=== PATIENT | female | born 1945 | race Caucasian/White ===

== ENCOUNTER → 2017-03-17 | Outpatient (CLI) | payer BC ==
[~2017-03-17] MED LIST: ACET-1311 PO; ASPI1CHW12 PO; BUME1TAB PO; CHOL100027 PO; DICLTAB4 PO; ESCI1TAB9 PO; NAPR-1169 PO; OXYC-57 PO; PNT500 PO; PRT/20 PO; SIMV20TA5 PO
--- NOTE | 2017-03-17 16:42 | DIAGNOSTIC IMAGING REPORT ---
RIGHT ANKLE MIN 3 VIEWS ROUTINE CLINICAL HISTORY: Right ankle pain and swelling. COMPARISON: None FINDINGS: Alignment of the right ankle is anatomic. Talar dome is intact. There is no fracture or suspicious lesion. A 5 mm well-corticated ossicle adjacent to the fibular tip is chronic. Joint spaces are preserved. Talar dome is intact. IMPRESSION: No significant osseous abnormality of the right ankle. Electronically signed by: Rene Phoenix M.D. 03/17/2017 4:41 PM Dictated Date/Time: 03/17/2017 4:40 PM
--- NOTE | 2017-03-17 16:43 | DIAGNOSTIC IMAGING REPORT ---
RIGHT FOOT MIN 3 VIEWS ROUTINE CLINICAL HISTORY: PAIN, EMED Right pain COMPARISON: None. DISCUSSION: Mild degenerative change first metatarsophalangeal joint. Mild hallux valgus configuration. No acute bony pathology. Study is negative for fracture or dislocation. IMPRESSION: Mild degenerative change first metatarsophalangeal joint. Mild localized soft tissue edema. No acute bony abnormality The above report was generated using voice recognition software. It may contain grammatical, syntax or spelling errors. Electronically signed by: Tomi Ortega M.D. 03/17/2017 4:42 PM Dictated Date/Time: 03/17/2017 4:40 PM
== END | disposition home or self-care (01) ==
LOC: C.RAD 16:21
PROVIDERS: ATTEND Physician Assistant Medical
DX: R52 Pain, unspecified (principal); R60.9 Edema, unspecified

== ENCOUNTER → 2017-03-18 | Outpatient (CLI) | payer BC ==
[2017-03-18 09:38] LABS: HEMATOCRIT 38.2 % (37-47); MEAN CELL VOLUME 84.3 fL (80-100); MEAN CORPUSCULAR HEMOGLOBIN 28.7 pg (25-34); MEAN PLATELET VOLUME 8.4 fL (7.4-10.4); PLATELET COUNT 172 K/uL (130-400); RED BLOOD COUNT 4.53 M/uL (4.2-5.4); WHITE BLOOD COUNT 3.75 K/uL (4.8-10.8)
[2017-03-18 10:01] LABS: BLOOD UREA NITROGEN 18 mg/dl (7-18); CALCIUM 9.3 mg/dl (8.5-10.1); CARBON DIOXIDE 29 mmol/L (21-32); CHLORIDE 108 mmol/L (98-107); CHOLESTEROL 180 mg/dl (0-200); CREATININE 0.84 mg/dl (0.60-1.20); GLUCOSE 90 mg/dl (70-99); POTASSIUM 4.6 mmol/L (3.5-5.1); SODIUM 141 mmol/L (136-145); TRIGLYCERIDES 152 mg/dl (0-150); VERY LOW DENSITY LIPOPROT CALC 30 mg/dl
[2017-03-18 10:04] LABS: CHOLESTEROL/HDL RATIO 4.1; HDL CHOLESTEROL 44 mg/dl; LDL CHOLESTEROL CALCULATED 106 mg/dl
== END | disposition home or self-care (01) ==
LOC: C.LAB 08:32
PROVIDERS: ATTEND Physician Assistant Medical
DX: E78.5 Hyperlipidemia, unspecified (principal); M19.90 Unspecified osteoarthritis, unspecified site; K57.90 Diverticulosis of intestine, part unspecified, without perforation or abscess without bleeding; Z79.899 Other long term (current) drug therapy; M47.812 Spondylosis without myelopathy or radiculopathy, cervical region; M47.816 Spondylosis without myelopathy or radiculopathy, lumbar region; M85.9 Disorder of bone density and structure, unspecified

== ENCOUNTER 2017-04-05 23:16 | Emergency (ER) | payer BC ==
[~2017-04-05] VITALS: Ht 161.3 cm; Wt 56.3 kg
[~2017-04-05 23:16] MED LIST changes: -ACET-1311 PO; -ASPI1CHW12 PO; -BUME1TAB PO; -DICLTAB4 PO; -OXYC-57 PO
[2017-04-05 23:21] VITALS: TEMP 36.5; Ht 161.3 cm; Wt 56.3 kg
[2017-04-05] MEDS ORDERED: ASPI1CHW12 PO (23:42)
[2017-04-05] MEDS ORDERED: DICLTAB4 PO (23:43)
[2017-04-05] MEDS ORDERED: ACET-1311 PO (23:44)
[2017-04-05] MEDS ORDERED: ACETAMINOPHEN 500 MG TAB PO STA (23:57)
[2017-04-06 00:36] LABS: BASO % 0.8 %; BASO ABS # 0.03 K/uL (0-0.2); COMPLETE YES; HEMATOCRIT 36.2 % (37-47); LYMPH % 33.5 %; LYMPH ABS # 1.25 K/uL (1.2-3.4); MEAN CELL VOLUME 85.4 fL (80-100); MEAN PLATELET VOLUME 8.4 fL (7.4-10.4); MONO % 8.6 %; NEUT % 49.1 %; PLATELET COUNT 164 K/uL (130-400); RED BLOOD COUNT 4.24 M/uL (4.2-5.4); WHITE BLOOD COUNT 3.73 K/uL (4.8-10.8)
[2017-04-06 00:44] LABS: BUN/CREATININE RATIO 17.9 (10-20); CALCIUM 8.9 mg/dl (8.5-10.1); CREATININE 0.85 mg/dl (0.60-1.20); POTASSIUM 3.9 mmol/L (3.5-5.1)
[2017-04-06 00:46] LABS: ALB/GLOB RATIO 1.1 (0.9-2)
--- NOTE | 2017-04-06 02:28 | EMERGENCY ROOM VISIT NOTE ---
History Report prepared by Deuce: Jensen Dillard Under the Supervision of: Dr. Dori Bo D.O. First contact with patient: 23:43 Chief Complaint: SWELLING TO EXTREMITY Stated Complaint: RT FOOT/LEG SWELLING W/PAIN History of Present Illness The patient is a 71 year old female who presents to the Emergency Room with complaints of worsening right lower leg swelling beginning last week. She was seen by her PCP last week and had blood work and an x-ray which all appeared normal. She was started on a Medrol dose pack which improved her symptoms. The patient denies any changes to her medication. She denies any changes to her foot wear or changes to activity. She denies any recent prolonged travel. The patient denies any urinary symptoms, abdominal pain, fevers, or chills. She states that she has had some back pain, but this has been chronic over the past year. The patient notes that she had a cardiac catheterization two years ago which was normal. Source of History: patient Onset: This week Position: leg (right) Quality: other (swelling) Timing: worsening Modifying Factors (Relieving): other (Medrol dose pack) Associated Symptoms: No fevers, No chills, No abdominal pain, No urinary symptoms Review of Systems See HPI for pertinent positives & negatives. A total of 10 systems reviewed and were otherwise negative. Past Medical & Surgical Medical Problems: (1) S/P hernia repair Family History Hypertension Social History Smoking Status: Former Smoker Alcohol Use: none Drug Use: none Marital Status: single Housing Status: lives alone Occupation Status: retired Current/Historical Medications Scheduled Acetaminophen (Tylenol), 650 MG PO Q2D Aspirin (Aspirin 81 Low Dose), 81 MG PO Q2D Cholecalciferol (Vitamin D 1000 Unit), 2,000 INTER.UNIT PO DAILY Diclofenac W/ Misoprostol (Arthrotec), 1 TAB PO Q2D Escitalopram Oxalate (Lexapro), 5 MG PO DAILY Pantoprazole (Protonix), 40 MG PO DAILY Simvastatin (Zocor), 40 MG PO QPM Scheduled PRN Naproxen (Naprosyn), 500 MG PO BID PRN for Pain Allergies Coded Allergies: No Known Allergies (Unverified , 04/05/17) Physical Exam Vital Signs Date Time Temp Pulse Resp B/P (MAP) Pulse Ox O2 Delivery O2 Flow Rate FiO2 04/06/17 02:43 76 16 140/68 95 8/6/17 01:21 81 18 132/62 98 Room Air 04/05/17 23:21 36.5 80 18 130/74 98 Room Air Physical Exam GENERAL: alert, well appearing, well nourished, no distress, non-toxic EYE EXAM: normal conjunctiva, PERRL and EOM's grossly intact OROPHARYNX: no exudate, no erythema, lips, buccal mucosa, and tongue normal and mucous membranes are moist NECK: supple, no nuchal rigidity, no adenopathy, non-tender LUNGS: Clear to auscultation. Normal chest wall mechanics HEART: no murmurs, S1 normal and S2 normal ABDOMEN: abdomen soft, non-tender, normo-active bowel sounds, no masses, no rebound or guarding. BACK: Back is symmetrical on inspection and there is no deformity, no midline tenderness, no CVA tenderness. SKIN: no rashes and no bruising UPPER EXTREMITIES: upper extremities are grossly normal. LOWER EXTREMITIES: Trace left lower extremity edema. 1+ lower extremity edema. No rash, petechiae. Mild calf tenderness. Normal cap refill, normal ROM. Well healed surgical scar on the left foot over the 1st MTP. NEURO EXAM: Normal sensorium, cranial nerves II-XII grossly intact, normal speech, no gross weakness of arms, no gross weakness of legs. Medical Decision & Procedures ER Provider Diagnostic Interpretation: US results per statrad and my review. US VENOUS BILATERAL LOWER EXTREMITIES: No sonographic evidence for DVT. Cystic-appearing lesion in the left popliteal fossa. Could represent Bakers cyst. Laboratory Results 04/06/17 00:15 Red Blood Count 4.24, Mean Corpuscular Volume 85.4, Mean Corpuscular Hemoglobin 29.0, Mean Corpuscular Hemoglobin Concent 34.0, Mean Platelet Volume 8.4, Neutrophils (%) (Auto) 49.1, Lymphocytes (%) (Auto) 33.5, Monocytes (%) (Auto) 8.6, Eosinophils (%) (Auto) 8.0, Basophils (%) (Auto) 0.8, Neutrophils # (Auto) 1.83, Lymphocytes # (Auto) 1.25, Monocytes # (Auto) 0.32, Eosinophils # (Auto) 0.30, Basophils # (Auto) 0.03 04/06/17 00:15 Test 04/06/17 00:15 White Blood Count 3.73 K/uL (4.8-10.8) Red Blood Count 4.24 M/uL (4.2-5.4) Hemoglobin 12.3 g/dL (12.0-16.0) Hematocrit 36.2 % (37-47) Mean Corpuscular Volume 85.4 fL (80-100) Mean Corpuscular Hemoglobin 29.0 pg (25-34) Mean Corpuscular Hemoglobin Concent 34.0 g/dl (32-36) Platelet Count 164 K/uL (130-400) Mean Platelet Volume 8.4 fL (7.4-10.4) Neutrophils (%) (Auto) 49.1 % Lymphocytes (%) (Auto) 33.5 % Monocytes (%) (Auto) 8.6 % Eosinophils (%) (Auto) 8.0 % Basophils (%) (Auto) 0.8 % Neutrophils # (Auto) 1.83 K/uL (1.4-6.5) Lymphocytes # (Auto) 1.25 K/uL (1.2-3.4) Monocytes # (Auto) 0.32 K/uL (0.11-0.59) Eosinophils # (Auto) 0.30 K/uL (0-0.5) Basophils # (Auto) 0.03 K/uL (0-0.2) RDW Standard Deviation 41.9 fL (36.4-46.3) RDW Coefficient of Variation 13.4 % (11.5-14.5) Immature Granulocyte % (Auto) 0.0 % Immature Granulocyte # (Auto) 0.00 K/uL (0.00-0.02) Anion Gap 6.0 mmol/L (3-11) Est Creatinine Clear Calc Drug Dose 50.6 ml/min Estimated GFR () 79.3 Estimated GFR (Non- 68.5 BUN/Creatinine Ratio 17.9 (10-20) Calcium Level 8.9 mg/dl (8.5-10.1) Total Bilirubin 0.4 mg/dl (0.2-1) Aspartate Amino Transf (AST/SGOT) 26 U/L (15-37) Alanine Aminotransferase (ALT/SGPT) 45 U/L (12-78) Alkaline Phosphatase 83 U/L (45-117) Total Protein 6.5 gm/dl (6.4-8.2) Albumin 3.4 gm/dl (3.4-5.0) Globulin 3.1 gm/dl (2.5-4.0) Albumin/Globulin Ratio 1.1 (0.9-2) Laboratory results per my review. Medications Administered Medications (Trade) Dose Ordered Sig/Lex Route Start Time Stop Time Status Last Admin Dose Admin Acetaminophen (Tylenol Tab) 1,000 mg NOW STAT PO 04/05/17 23:57 04/05/17 23:58 DC 04/06/17 00:13 1,000 MG ED Course 2348: The patient was evaluated in room C6. A complete history and physical exam was performed. 2357: Ordered Tylenol Tab 1000 mg PO. 0218: Upon reevaluation, the patient is feeling better. I discussed the findings and the treatment plan with the patient. She verbalizes agreement and understanding. The patient was discharged home. Medical Decision Differential diagnosis: Etiologies such as DVT, musculoskeletal, infection, joint effusion, trauma, lymphedema, idiopathic, CHF, as well as others were entertained. No evidence for DVT, no recent trauma or injury to warrant additional imaging, patient already had prior outpatient x-rays. Patient's labs are reassuring no acute change compared to those from 2 weeks ago. No evidence of nephrotic syndrome, patient with no symptoms to suggest congestive heart failure, no evidence of cellulitis. Discussed the patient follow up with family doctor in possible need for additional evaluation of a rheumatologic disorder versus more proximal etiology for lymphedema. Patient well-appearing here had stable vital signs throughout, was agreeable with plan. Discussed symptoms to watch and return for, patient verbalized understanding. Medication Reconcilliation Current Medication List: was personally reviewed by me Blood Pressure Screening Patient's blood pressure: Elevated blood pressure Blood pressure disposition: Elevated BP felt to be situational Impression Primary Impression: Swelling of right extremity Scribe Attestation The scribe's documentation has been prepared under my direction and personally reviewed by me in its entirety. I confirm that the note above accurately reflects all work, treatment, procedures, and medical decision making performed by me. Departure Information Dispostion Home / Self-Care Referrals Prudencio Mtz D.O. (PCP) Patient Instructions My [facility] Additional Instructions Please follow up with your family doctor regarding the swelling in her leg. The ultrasound was negative for blood clots tonight, if the swelling persists your family doctor may consider repeating the study. Labs otherwise reassuring here. If you have any worsening swelling, develop fevers, rashes or sores, trouble breathing, chest pain, or you have any other new or concerning symptoms , please return the emergency room immediately.
[2017-04-06 02:43] VITALS: BP 140/68; PULSE 76; O2SAT 95
--- NOTE | 2017-04-06 06:54 | DIAGNOSTIC IMAGING REPORT ---
BILATERAL LOWER EXTREMITY VENOUS DOPPLER HISTORY: Bilateral lower extremity edema COMPARISON STUDY: None. FINDINGS: There is normal compressibility, flow, and augmentation within the bilateral lower extremity deep venous systems. A 1.9 x 1.2 x 0.5 cm left popliteal cyst. IMPRESSION: No DVT within the right or left lower extremity. Electronically signed by: Wojciech Robison M.D. 04/06/2017 6:53 AM Dictated Date/Time: 04/06/2017 6:53 AM
== END 2017-04-06 02:44 | disposition home or self-care (01) ==
LOC: C.EDB 23:16 → C.EDC 04-06 02:44
DX: R60.0 Localized edema (principal); Z79.82 Long term (current) use of aspirin; Z82.49 Family history of ischemic heart disease and other diseases of the circulatory system; Z87.891 Personal history of nicotine dependence

== ENCOUNTER → 2017-04-12 | Outpatient (CLI) | payer BC ==
[~2017-04-12] MED LIST changes: +ACET-1311 PO; +ASPI1CHW12 PO; +BUME1TAB PO; +DICLTAB4 PO; +OXYC-57 PO; -PNT500 PO
[2017-04-12 11:06] LABS: BASO % 1.1 %; BASO ABS # 0.04 K/uL (0-0.2); COMPLETE YES; EOS % 8.5 %; IG% 0.3 %; LYMPH % 36.9 %; LYMPH ABS # 1.31 K/uL (1.2-3.4); MEAN CELL VOLUME 85.7 fL (80-100); MEAN CORPUSCULAR HGB CONC 33.8 g/dl (32-36); MEAN PLATELET VOLUME 8.5 fL (7.4-10.4); MONO % 6.5 %; NEUT % 46.7 %; PLATELET COUNT 188 K/uL (130-400); RED BLOOD COUNT 4.55 M/uL (4.2-5.4); WHITE BLOOD COUNT 3.55 K/uL (4.8-10.8)
[2017-04-12 11:40] LABS: BLOOD UREA NITROGEN 18 mg/dl (7-18); C-REACTIVE PROTEIN < 0.29 mg/dl (0-0.29); CALCIUM 9.3 mg/dl (8.5-10.1); CARBON DIOXIDE 30 mmol/L (21-32); CHLORIDE 105 mmol/L (98-107); GLUCOSE 85 mg/dl (70-99); POTASSIUM 4.5 mmol/L (3.5-5.1); SODIUM 139 mmol/L (136-145)
== END | disposition home or self-care (01) ==
LOC: C.LAB 09:31
PROVIDERS: ATTEND Internal Medicine
DX: R60.0 Localized edema (principal); M79.89 Other specified soft tissue disorders

== ENCOUNTER 2017-04-14 08:09 | Emergency (ER) | payer BC ==
[~2017-04-14] VITALS: Ht 160 cm; Wt 54.1 kg
[~2017-04-14 08:09] MED LIST changes: -BUME1TAB PO; -OXYC-57 PO
[2017-04-14 08:19] VITALS: TEMP 36.5; Ht 160 cm; Wt 54.1 kg
--- NOTE | 2017-04-14 08:38 | EMERGENCY ROOM VISIT NOTE ---
History Report prepared by Deuce: Ander Scales Under the Supervision of: Dr. Mahnaz Fulton M.D. First contact with patient: 08:29 Chief Complaint: BACK PAIN Stated Complaint: BACK/LEG PAIN, SWELLING TO RT LEG, DIFF. VOIDING History of Present Illness The patient is a 71 year old female who presents to the Emergency Room with complaints of difficulty voiding that the patient first noticed this morning, shortly prior to arrival. She did empty her bladder after several attempts to void. The patient states that she was in the emergency department on Friday, two days ago for concerns of swelling in the right lower extremity and right foot. She had an US performed on the leg, which revealed no DVT. She followed up with her PCP who ordered blood work, and also suggested imaging of the abdomen and pelvis. The patient also notes some pain in her lumbar back with intermittent "spasms." She has had chronic back pain for the past year. She was recently started on Bumex by her PCP as well, and she notes losing four pounds since starting this medication. Source of History: patient Onset: Shortly [employer] Position: other (Genitourinary) Quality: other (Urinary Retention) Associated Symptoms: + back pain Note: Swelling of RLE Review of Systems See HPI for pertinent positives & negatives. A total of 10 systems reviewed and were otherwise negative. Past Medical & Surgical Medical Problems: (1) S/P hernia repair Family History Hypertension Social History Smoking Status: Never Smoker Alcohol Use: none Drug Use: none Marital Status: single Housing Status: lives alone Occupation Status: retired Current/Historical Medications Scheduled Acetaminophen (Tylenol), 650 MG PO Q2D Aspirin (Aspirin 81 Low Dose), 81 MG PO Q2D Bumetanide (Bumex), 1 TAB PO QAM Cholecalciferol (Vitamin D 1000 Unit), 2,000 INTER.UNIT PO DAILY Escitalopram Oxalate (Lexapro), 5 MG PO DAILY Pantoprazole (Protonix), 40 MG PO DAILY Simvastatin (Zocor), 40 MG PO QPM Scheduled PRN Naproxen (Naprosyn), 500 MG PO BID PRN for Pain Allergies Coded Allergies: No Known Allergies (Unverified , 04/05/17) Physical Exam Vital Signs Date Time Temp Pulse Resp B/P (MAP) Pulse Ox O2 Delivery O2 Flow Rate FiO2 04/14/17 12:09 72 16 132/62 98 04/14/17 11:08 77 148/78 04/14/17 09:49 65 15 04/14/17 09:44 69 22 04/14/17 09:39 76 20 04/14/17 09:34 72 20 04/14/17 09:29 64 19 04/14/17 09:24 66 17 04/14/17 09:19 66 17 04/14/17 09:14 66 21 04/14/17 09:11 69 04/14/17 08:19 36.5 72 18 123/54 97 Room Air Physical Exam Vital signs reviewed. General: Well-appearing 71 yo female, in no significant distress. HEENT: No scleral icterus, PERRLA, neck supple. Atraumatic. Cardiovascular: Regular rate and rhythm, no extra sounds. Pulmonary: Clear to auscultation bilaterally, normal work of breathing. Abdomen: Soft, nontender, nondistended, positive bowel sounds. Musculoskeletal: There is right inguinal lymphadenopathy. Atraumatic, no peripheral edema. There is bilateral lumbar paraspinous tenderness to palpation. Neurologic: Patient awake alert and oriented x 3, full strength in all 4 extremities. Cranial nerves 2 through 12 grossly intact. Skin: Warm, dry, no rash Medical Decision & Procedures ER Provider Diagnostic Interpretation: Radiology results as stated below per my review and radiologist interpretation: CT SCAN OF LUMBAR SPINE WITHOUT IV CONTRAST CLINICAL HISTORY: Low back pain. Right leg swelling. Urinary retention. COMPARISON STUDY: Abdominal CT dated 08/07/2013. TECHNIQUE: CT scan of the lumbar spine is performed from the lower thoracic spine to the sacrum. Images are reviewed in the axial, sagittal, and coronal planes. IV contrast was not administered specifically for this examination. There is IV contrast present from the concurrently performed CT scan of the abdomen and pelvis. FINDINGS: The skeletal structures are osteopenic. There is no evidence of fracture or malalignment involving the lumbar spine. Vertebral body height and alignment are maintained. There is minimal straightening of the lumbar lordosis. Small anterior osteophytes are seen throughout. The transverse and spinous processes are intact. There is no evidence of spondylolysis. No lytic or blastic lesions are seen. Mild facet arthropathy is noted L5-S1. Mild disc space narrowing with vacuum phenomenon is seen at L5-S1. The remaining disc spaces appear preserved. Small posterior disc bulges are suggested at L4-L5 and L5-S1. There is no evidence of large disc herniation. The paraspinous soft tissues are within normal limits. The visualized sacrum and bony pelvis appear intact. Retroperitoneal lymphadenopathy is identified. Splenomegaly is observed. IMPRESSION: 1. No acute bony abnormality is seen involving the lumbosacral spine. 2. Osteopenia and mild degenerative change as above. 3. There is splenomegaly and retroperitoneal lymphadenopathy. The appearance suggests a lymphoproliferative disorder/lymphoma. See report of abdominal CT performed concurrently for detailed intra-abdominal findings. Dictated: 04/14/2017 10:16 AM Transcribed: 04/14/2017 10:59 AM [email or web address] Electronically signed by: Winston Correa M.D. 04/14/2017 11:13 AM Dictated Date/Time: 04/14/2017 10:16 AM ABD/PELVIS IV CONTRAST ONLY CT DOSE: 239.88 mGy.cm HISTORY: Pain. Edema. low back pain, RLE edema TECHNIQUE: Multiaxial CT images of the abdomen and pelvis were performed following the use of intravenous contrast. A dose lowering technique was utilized adhering to the principles of ALARA. COMPARISON STUDY: 08/07/2013 FINDINGS: Lungs show no focal infiltrate in the basilar regions. Minimal parenchymal nodularity unchanged from the prior study. Liver is uniform throughout. Mild splenomegaly with a greatest linear dimension of 10 cm. This is slightly progressive compared to the prior study. Liver is uniform throughout. Kidneys enhance uniformly. No evidence for hydronephrosis. Interval development of significant periaortic adenopathy. Adenopathy of the periportal region is also identified agent 1.8 cm. Retroperitoneal nodes measure up to 2.3 cm. Multiple additional smaller nodules are identified from the right renal hilar level extending inferiorly to the bifurcations and iliac thiago regions bilaterally. Mesenteric nodes measure up to 2.5 cm. Proximal iliac chains demonstrate nodes measuring up to 2.6 cm. Less prominent thiago changes seen in the left. Superior mid and lower right pelvic sidewall nodes are identified measuring to 3.2 cm. There is mild infiltrative change of the root of the mesentery best seen transaxial image 221. Slight increase in density of the omental fat is present suggesting potential very early carcinomatosis. Bladder is midline. Bowel pattern is nonobstructive. The appendix is normal. IMPRESSION: 1. Interval development of bulky adenopathy involving the right and to a lesser extent left soft tissue pelvic regions, abdominal, retroperitoneum, and mesenteric regions. 2. Neoplastic process such as lymphoma must be excluded. 3. Mild splenomegaly. The above report was generated using voice recognition software. It may contain grammatical, syntax or spelling errors. Electronically signed by: Tomi Ortega M.D. 04/14/2017 10:23 AM Dictated Date/Time: 04/14/2017 10:13 AM Laboratory Results 04/14/17 08:42 Red Blood Count 4.47, Mean Corpuscular Volume 84.1, Mean Corpuscular Hemoglobin 28.4, Mean Corpuscular Hemoglobin Concent 33.8, Mean Platelet Volume 8.2, Neutrophils (%) (Auto) 50.4, Lymphocytes (%) (Auto) 22.6, Monocytes (%) (Auto) 20.3, Eosinophils (%) (Auto) 5.8, Basophils (%) (Auto) 0.9, Neutrophils # (Auto ) 1.74, Lymphocytes # (Auto) 0.78, Monocytes # (Auto) 0.70, Eosinophils # (Auto ) 0.20, Basophils # (Auto) 0.03 04/14/17 08:42 Test 04/14/17 08:42 04/14/17 09:07 White Blood Count 3.45 K/uL (4.8-10.8) Red Blood Count 4.47 M/uL (4.2-5.4) Hemoglobin 12.7 g/dL (12.0-16.0) Hematocrit 37.6 % (37-47) Mean Corpuscular Volume 84.1 fL (80-100) Mean Corpuscular Hemoglobin 28.4 pg (25-34) Mean Corpuscular Hemoglobin Concent 33.8 g/dl (32-36) Platelet Count 167 K/uL (130-400) Mean Platelet Volume 8.2 fL (7.4-10.4) Neutrophils (%) (Auto) 50.4 % Lymphocytes (%) (Auto) 22.6 % Monocytes (%) (Auto) 20.3 % Eosinophils (%) (Auto) 5.8 % Basophils (%) (Auto) 0.9 % Neutrophils # (Auto) 1.74 K/uL (1.4-6.5) Lymphocytes # (Auto) 0.78 K/uL (1.2-3.4) Monocytes # (Auto) 0.70 K/uL (0.11-0.59) Eosinophils # (Auto) 0.20 K/uL (0-0.5) Basophils # (Auto) 0.03 K/uL (0-0.2) RDW Standard Deviation 39.7 fL (36.4-46.3) RDW Coefficient of Variation 13.2 % (11.5-14.5) Immature Granulocyte % (Auto) 0.0 % Immature Granulocyte # (Auto) 0.00 K/uL (0.00-0.02) Anion Gap 5.0 mmol/L (3-11) Est Creatinine Clear Calc Drug Dose 42.1 ml/min Estimated GFR () 65.2 Estimated GFR (Non- 56.2 BUN/Creatinine Ratio 22.1 (10-20) Calcium Level 9.0 mg/dl (8.5-10.1) Total Bilirubin 0.6 mg/dl (0.2-1) Direct Bilirubin 0.1 mg/dl (0-0.2) Aspartate Amino Transf (AST/SGOT) 58 U/L (15-37) Alanine Aminotransferase (ALT/SGPT) 110 U/L (12-78) Alkaline Phosphatase 87 U/L (45-117) Total Protein 6.9 gm/dl (6.4-8.2) Albumin 3.9 gm/dl (3.4-5.0) Lipase 145 U/L (73-393) Urine Color YELLOW Urine Appearance CLEAR (CLEAR) Urine pH 6.0 (4.5-7.5) Urine Specific [place] 1.012 (1.000-1.030) Urine Protein NEG (NEG) Urine Glucose (UA) NEG (NEG) Urine Ketones NEG (NEG) Urine Occult Blood 1+ (NEG) Urine Nitrite NEG (NEG) Urine Bilirubin NEG (NEG) Urine Urobilinogen NEG (NEG) Urine Leukocyte Esterase NEG (NEG) Urine WBC (Auto) 0 /hpf (0-5) Urine RBC (Auto) 0-4 /hpf (0-4) Urine Hyaline Casts (Auto) 1-5 /lpf (0-5) Urine Epithelial Cells (Auto) 0-5 /lpf (0-5) Urine Bacteria (Auto) NEG (NEG) Laboratory results per my review. ED Course 0829: Past medical records reviewed. The patient was evaluated in room A4. A complete history and physical examination was performed. 1054: I checked on the patient at this time. She was doing well. I discussed the results of her radiology at depth. She is aware of the results and will follow up with her primary care physician. 1139: Upon reevaluation, the patient appeared to have improvement of her symptoms. I discussed findings with her. She verbalized agreement of the treatment plan. the patient was discharged home. Medical Decision Differential diagnosis: Etiologies such as musculoskeletal, disc herniation, fracture, aortic disease, metastatic disease, cord compression, discitis, infection, renal colic, gastrointestinal, acute exacerbation of chronic back pain, sciatica, cauda equina, as well as others were entertained. This patient was evaluated and appeared to be in no significant distress. IV access was obtained and laboratory work was drawn. CT scan of the abdomen and pelvis was performed and reveals significant lymphadenopathy. Radiology is concerned with a lymphoproliferative disorder such as lymphoma. The patient's laboratory work is fairly unrevealing. She was notified of the findings. She stated that several CT scans of her chest 7 performed with similar findings. The patient was strongly encouraged to follow up with oncology, case management has been consulted to help arrange follow-up as the patient wishes to be seen by the cancer center at [facility]. The patient seems comfortable with the plan for discharge and has requested results be faxed to her physician. She will return to the ER for worsening of symptoms or any medical concerns. Medication Reconcilliation Current Medication List: was personally reviewed by me Blood Pressure Screening Patient's blood pressure: Elevated blood pressure Blood pressure disposition: Elevated BP felt to be situational Impression Primary Impression: Lymphadenopathy Scribe Attestation The scribe's documentation has been prepared under my direction and personally reviewed by me in its entirety. I confirm that the note above accurately reflects all work, treatment, procedures, and medical decision making performed by me. Departure Information Dispostion Home / Self-Care Referrals Prudencio Mtz D.O. (PCP) Forms HOME CARE DOCUMENTATION FORM, IMPORTANT VISIT INFORMATION Patient Instructions My [facility] Additional Instructions Diagnosis: Lymphadenopathy Please follow up with your PCP for reevaluation. Contact/follow up with the Cancer Center for reevaluation. Return to the ED for worsening of symptoms or any medical concerns.
[2017-04-14] MEDS ORDERED: OPTIRAY 320 IV PRN (08:45)
[2017-04-14 08:58] LABS: BASO % 0.9 %; BASO ABS # 0.03 K/uL (0-0.2); COMPLETE YES; EOS % 5.8 %; HEMATOCRIT 37.6 % (37-47); LYMPH % 22.6 %; LYMPH ABS # 0.78 K/uL (1.2-3.4); MEAN CELL VOLUME 84.1 fL (80-100); MEAN CORPUSCULAR HEMOGLOBIN 28.4 pg (25-34); MEAN CORPUSCULAR HGB CONC 33.8 g/dl (32-36); MEAN PLATELET VOLUME 8.2 fL (7.4-10.4); MONO % 20.3 %; NEUT % 50.4 %; PLATELET COUNT 167 K/uL (130-400); RED BLOOD COUNT 4.47 M/uL (4.2-5.4); WHITE BLOOD COUNT 3.45 K/uL (4.8-10.8)
[2017-04-14 09:25] LABS: URINE APPEARANCE CLEAR (CLEAR); URINE BILIRUBIN NEG (NEG); URINE COLOR YELLOW; URINE EPITHELIAL CELL AUTO 0-5 /lpf (0-5); URINE NITRITE NEG (NEG); URINE SPECIFIC GRAVITY 1.012 (1.000-1.030); UROBILINOGEN NEG (NEG); ZZUR CULT IF INDIC CLEAN CATCH NO
[2017-04-14 09:25] LABS: BUN/CREATININE RATIO 22.1 (10-20); POTASSIUM 3.5 mmol/L (3.5-5.1)
[2017-04-14 09:27] LABS: MANUAL MICROSCOPIC REQUIRED? NO; REVIEW REQ? NO
[2017-04-14] MEDS ORDERED: BUME1TAB PO (09:29)
--- NOTE | 2017-04-14 10:24 | DIAGNOSTIC IMAGING REPORT ---
ABD/PELVIS IV CONTRAST ONLY CT DOSE: 239.88 mGy.cm HISTORY: Pain. Edema. low back pain, RLE edema TECHNIQUE: Multiaxial CT images of the abdomen and pelvis were performed following the use of intravenous contrast. A dose lowering technique was utilized adhering to the principles of ALARA. COMPARISON STUDY: 08/07/2013 FINDINGS: Lungs show no focal infiltrate in the basilar regions. Minimal parenchymal nodularity unchanged from the prior study. Liver is uniform throughout. Mild splenomegaly with a greatest linear dimension of 10 cm. This is slightly progressive compared to the prior study. Liver is uniform throughout. Kidneys enhance uniformly. No evidence for hydronephrosis. Interval development of significant periaortic adenopathy. Adenopathy of the periportal region is also identified agent 1.8 cm. Retroperitoneal nodes measure up to 2.3 cm. Multiple additional smaller nodules are identified from the right renal hilar level extending inferiorly to the bifurcations and iliac thiago regions bilaterally. Mesenteric nodes measure up to 2.5 cm. Proximal iliac chains demonstrate nodes measuring up to 2.6 cm. Less prominent thiago changes seen in the left. Superior mid and lower right pelvic sidewall nodes are identified measuring to 3.2 cm. There is mild infiltrative change of the root of the mesentery best seen transaxial image 221. Slight increase in density of the omental fat is present suggesting potential very early carcinomatosis. Bladder is midline. Bowel pattern is nonobstructive. The appendix is normal. IMPRESSION: 1. Interval development of bulky adenopathy involving the right and to a lesser extent left soft tissue pelvic regions, abdominal, retroperitoneum, and mesenteric regions. 2. Neoplastic process such as lymphoma must be excluded. 3. Mild splenomegaly. The above report was generated using voice recognition software. It may contain grammatical, syntax or spelling errors. Electronically signed by: Tomi Ortega M.D. 04/14/2017 10:23 AM Dictated Date/Time: 04/14/2017 10:13 AM
--- NOTE | 2017-04-14 10:59 | DIAGNOSTIC IMAGING REPORT ---
CT SCAN OF LUMBAR SPINE WITHOUT IV CONTRAST CLINICAL HISTORY: Low back pain. Right leg swelling. Urinary retention. COMPARISON STUDY: Abdominal CT dated 08/07/2013. TECHNIQUE: CT scan of the lumbar spine is performed from the lower thoracic spine to the sacrum. Images are reviewed in the axial, sagittal, and coronal planes. IV contrast was not administered specifically for this examination. There is IV contrast present from the concurrently performed CT scan of the abdomen and pelvis. FINDINGS: The skeletal structures are osteopenic. There is no evidence of fracture or malalignment involving the lumbar spine. Vertebral body height and alignment are maintained. There is minimal straightening of the lumbar lordosis. Small anterior osteophytes are seen throughout. The transverse and spinous processes are intact. There is no evidence of spondylolysis. No lytic or blastic lesions are seen. Mild facet arthropathy is noted L5-S1. Mild disc space narrowing with vacuum phenomenon is seen at L5-S1. The remaining disc spaces appear preserved. Small posterior disc bulges are suggested at L4-L5 and L5-S1. There is no evidence of large disc herniation. The paraspinous soft tissues are within normal limits. The visualized sacrum and bony pelvis appear intact. Retroperitoneal lymphadenopathy is identified. Splenomegaly is observed. IMPRESSION: 1. No acute bony abnormality is seen involving the lumbosacral spine. 2. Osteopenia and mild degenerative change as above. 3. There is splenomegaly and retroperitoneal lymphadenopathy. The appearance suggests a lymphoproliferative disorder/lymphoma. See report of abdominal CT performed concurrently for detailed intra-abdominal findings. Dictated: 04/14/2017 10:16 AM Transcribed: 04/14/2017 10:59 AM Ryan Electronically signed by: Winston Correa M.D. 04/14/2017 11:13 AM Dictated Date/Time: 04/14/2017 10:16 AM
[2017-04-14 12:09] VITALS: BP 132/62; PULSE 72; O2SAT 98
== END 2017-04-14 12:10 | disposition home or self-care (01) ==
LOC: C.EDB 08:10 → C.EDA 12:10
DX: R59.0 Localized enlarged lymph nodes (principal); M54.9 Dorsalgia, unspecified; M79.89 Other specified soft tissue disorders; Z79.82 Long term (current) use of aspirin; Z79.899 Other long term (current) drug therapy; Z82.49 Family history of ischemic heart disease and other diseases of the circulatory system

== ENCOUNTER → 2017-04-14 | Outpatient (CLI) | payer BC ==
--- NOTE | 2017-04-14 16:45 | ECHOCARDIOGRAM REPORT ---
*NOTICE TO RECEIVING LIBERTARIAN AGENCY This information is strictly Confidential and protected under [place] law. [place] law prohibits you from making any further disclosure of this information unless further disclosure is expressly permitted by the written consent of the person to whom it pertains or is authorized by law. A general authorization for the release of medical or other information is not sufficient for this purpose. Hospital accepts no responsibility if the information is made available to any other person, INCLUDING THE PATIENT. Interpretation Summary * Name: CARISA VALERIO Study Date: 04/14/2017 12:51 PM BP: 107/63 mmHg * Patient Location: [facility] HR: 80 * : 1945 (M/d/yyyy) Gender: Female Height: 63 in * Age: 71 yrs Ethnicity: CA Weight: 115 lb * Referring Physician: Smith * Performed By: Etta Vance RDCS * * Reason For Study: LEG EDEMA * BSA: 1.5 m2 * -- Conclusions -- * 1. Normal left ventricular size with hyperdynamic systolic function. EF > 70%. No regional wall motion abnormalities. No left ventricular hypertrophy. Type I diastolic dysfunction. * 2. No significant valvular abnormalities visualized. * 3. Normal estimated right ventricular systolic pressure; 27 mmHg. * 4. No prior study available comparison. Procedure Details * A complete two-dimensional transthoracic echocardiogram was performed (2D, M-mode, Doppler and color flow Doppler). Left Ventricle * Normal left ventricular size with hyperdynamic systolic function. EF > 70%. No regional wall motion abnormalities. No left ventricular hypertrophy. Type I diastolic dysfunction. Right Ventricle * The right ventricle is normal in size and function. * The right ventricular systolic function is normal as assessed by tricuspid annular plane systolic excursion (TAPSE) (normal >1.5 cm). Atria * The left atrial size is normal. * Right atrial size is normal. Mitral Valve * The mitral valve leaflets appear normal. There is no evidence of stenosis, fluttering, or prolapse. * There is trace mitral regurgitation. Tricuspid Valve * The tricuspid valve is not well visualized, but is grossly normal. * There is no tricuspid stenosis. * Significant tricuspid regurgitation is absent. Aortic Valve * The aortic valve is normal in structure and function. * No hemodynamically significant valvular aortic stenosis. * No aortic regurgitation is present. Pulmonic Valve * The pulmonary valve is inadequately visualized, but the Doppler data is adequate for interpretation. * There is no pulmonic valvular stenosis. * There is no significant pulmonary regurgitation. Great Vessels * The aortic root is normal size. * Ascending aorta of normal dimension * Normal pulmonary venous flow pattern. Pericardium/Pleural * Trace pericardial effusion. Great Vessels * Normal inferior vena cava size and collapsability with sniff indicates a normal right atrial pressure of 3 mmHg MMode 2D Measurements and Calculations IVSd 1.1 cm IVSs 1.2 cm LVIDd 3.6 cm LVIDs 2.1 cm LVPWd 0.86 cm LVPWs 1.3 cm IVS/LVPW 1.3 FS 43.1 % EDV(Teich) 55.1 ml ESV(Teich) 13.7 ml EF(Teich) 75.2 % EDV(cubed) 47.4 ml ESV(cubed) 8.7 ml EF(cubed) 81.6 % % IVS thick 8.4 % % LVPW thick 54.1 % LV mass(C)d 104.9 grams LV mass(C)dI 68.6 grams/m\S\2 LV mass(C)s 72.6 grams LV mass(C)sI 47.5 grams/m\S\2 SV(Teich) 41.4 ml SI(Teich) 27.1 ml/m\S\2 SV(cubed) 38.7 ml SI(cubed) 25.3 ml/m\S\2 Ao root diam 3.0 cm Ao root area 7.0 cm\S\2 LA dimension 2.3 cm asc Aorta Diam 2.6 cm LA/Ao 0.76 LVAd ap4 17.9 cm\S\2 LVLd ap4 7.3 cm EDV(MOD-sp4) 37.1 ml EDV(sp4-el) 37.2 ml LVAs ap4 8.8 cm\S\2 LVLs ap4 6.2 cm ESV(MOD-sp4) 12.5 ml ESV(sp4-el) 10.7 ml EF(MOD-sp4) 66.3 % EF(sp4-el) 71.2 % LVAd ap2 17.1 cm\S\2 LVLd ap2 7.2 cm EDV(MOD-sp2) 35.5 ml EDV(sp2-el) 34.6 ml LVAs ap2 8.4 cm\S\2 LVLs ap2 6.0 cm ESV(MOD-sp2) 10.6 ml ESV(sp2-el) 9.9 ml EF(MOD-sp2) 70.2 % EF(sp2-el) 71.3 % LVLd %diff -1.69 % EDV(MOD-bp) 36.0 ml LVLs %diff -2.59 % ESV(MOD-bp) 11.2 ml EF(MOD-bp) 68.9 % SV(MOD-sp4) 24.6 ml SI(MOD-sp4) 16.1 ml/m\S\2 SV(MOD-sp2) 24.9 ml SI(MOD-sp2) 16.3 ml/m\S\2 SV(MOD-bp) 24.8 ml SI(MOD-bp) 16.2 ml/m\S\2 SV(sp4-el) 26.5 ml SI(sp4-el) 17.3 ml/m\S\2 SV(sp2-el) 24.6 ml SI(sp2-el) 16.1 ml/m\S\2 Doppler Measurements and Calculations MV E max meliza 63.5 cm/sec MV A max meliza 87.8 cm/sec MV E/A 0.72 MV dec time 0.24 sec Ao V2 max 159.9 cm/sec Ao max PG 10.2 mmHg Ao max PG (full) 5.5 mmHg LV V1 max PG 4.8 mmHg LV V1 max 109.1 cm/sec TR max meliza 242.8 cm/sec RVSP(TR) 26.6 mmHg RAP systole 3.0 mmHg
== END | disposition home or self-care (01) ==
LOC: C.ULTR 12:43
PROVIDERS: ATTEND Internal Medicine
DX: R60.0 Localized edema (principal); M79.89 Other specified soft tissue disorders

== ENCOUNTER → 2017-04-30 | Outpatient (CLI) | payer BC ==
[~2017-04-30] MED LIST changes: +BUME1TAB PO; -DICLTAB4 PO; +OXYC-57 PO
--- NOTE | 2017-04-30 17:45 | DIAGNOSTIC IMAGING REPORT ---
CHEST 2 VIEWS ROUTINE CLINICAL HISTORY: LYMPHADENOPATHY COMPARISON STUDY: Outside CT scan of chest dated 01/24/2016, CT scan of the abdomen pelvis dated 04/14/2017 FINDINGS: The heart is normal in size. The mediastinal contours are normal. There is no failure. There are no pleural effusions. There is a minimal airspace opacity at the level the right cardiophrenic angle. While nonspecific, this is likely atelectatic.[ This was present on the prior CT scan. IMPRESSION: Minimal nonspecific airspace opacity at the level of the right cardiophrenic angle. Electronically signed by: Sandor Abernathy M.D. 04/30/2017 5:43 PM Dictated Date/Time: 04/30/2017 5:42 PM
== END | disposition home or self-care (01) ==
LOC: C.RAD 16:20
PROVIDERS: ATTEND Surgery
DX: R59.1 Generalized enlarged lymph nodes (principal)

== ENCOUNTER 2017-05-01 06:28 | Day surgery (SDC) | payer BC ==
[~2017-05-01] VITALS: Ht 161.3 cm; Wt 53.1 kg
[~2017-05-01 06:28] MED LIST changes: -OXYC-57 PO
[2017-05-01 06:54] VITALS: BP 123/55; PULSE 72; TEMP 36.5; O2SAT 98; Ht 161.3 cm; Wt 53.1 kg
[2017-05-01] MEDS ORDERED: ONDANSETRON INJ 2 MG/ML 2 ML VIAL IV PRN ×2 (08:00→09:30)
[2017-05-01] MEDS ORDERED: FLUMAZENIL 0.1 MG/1 ML 10 ML VIAL IV PRN (08:00)
[2017-05-01] MEDS ORDERED: EpHEDrine SULFATE INJ 50 MG/ML AMP IV PRN (08:00)
[2017-05-01] MEDS ORDERED: FENTANYL CITRATE INJ 50 MCG/1 ML 2 ML VIAL IV PRN (08:00)
[2017-05-01] MEDS ORDERED: PHENYLEPHRINE 100MCG/ML 5ML SYR IV PRN (08:00)
[2017-05-01] MEDS ORDERED: HYDROmorphone INJ 2 MG/ML SYR/VIAL IV PRN (08:00)
[2017-05-01] MEDS ORDERED: NALOXONE HCL 0.4 MG/1 ML VIAL/CARP IV PRN (08:00)
[2017-05-01] MEDS ORDERED: ATROPINE SULFATE 0.1 MG/ML 5ML SYR IV PRN (08:00)
[2017-05-01] MEDS ORDERED: LABETALOL HCL IV 5 MG/ML 20ML IV PRN (08:00)
[2017-05-01] MEDS ORDERED: MEPERIDINE HCL 25 MG/ML CARP IV PRN (08:00)
[2017-05-01] MEDS ORDERED: FENTANYL CITRATE INJ 50 MCG/1 ML 2 ML VIAL ONE (08:12)
[2017-05-01] MEDS ORDERED: MIDAZOLAM HCL 1 MG/ML 2ML VIAL ONE (08:12)
[2017-05-01] MEDS ORDERED: LIDOCAINE HCL 1% 20 ML VIAL ONE (08:15)
--- NOTE | 2017-05-01 08:15 | History & Physical Bridge Note ---
H&P Re-Evaluation Bridge Note: I have examined the patient, reviewed the History & Physical and in the interval since the performance of the History & Physical I have noted the following changes of clinical significance: No changes noted pt marked, family at bedside
[2017-05-01] MEDS ORDERED: BUPIVACAINE 0.5 % 5 MG/1 ML MPF 30ML VIAL ONE (08:35)
[2017-05-01] MEDS ORDERED: LIDOCAINE HCL 2% 2 ML VIAL (20MG/ML) ONE (08:47)
[2017-05-01] MEDS ORDERED: PROPOFOL IV EMULSION 10 MG/ML 20 ML VIAL IV ONE (08:47)
[2017-05-01] MEDS ORDERED: ONDANSETRON INJ 2 MG/ML 2 ML VIAL ONE (08:51)
[2017-05-01] MEDS ORDERED: SURGICEL ABSORB HEMOSTAT 2IN X 14IN TOP ONE (09:09)
[2017-05-01 09:24] VITALS: BP 107/59; PULSE 67; TEMP 36.5; O2SAT 98
--- NOTE | 2017-05-01 09:24 | [facility] Operative Report ---
Operative Report Operative Date May 01, 2017. Pre-Operative Diagnosis Lymphadenopathy Post-Operative Diagnosis Lymphadenopathy, Frozen section likely lymphona Procedure(s) Performed Right Groin Lymph Node Incisional Biopsy, with Frozen Section Surgeon Dr. Jono Cameron Wine Cellar Stock Clerk Surgeon(s) Cristina Woods PA-C Estimated Blood Loss 3ml Findings friable hemorrhagic lymphoid tissue Specimens SPECIMENS: FROZEN: 1.) Right Groin Node CULTURE: 2.) Right Groin Node Anesthesia .5% marcaine and IV sedation I attest to the content of the Intraoperative Record and any orders documented therein. Any exceptions are noted below.
[2017-05-01] MEDS ORDERED: SODIUM CHLORIDE 0.9% 1000ML 1,000 ML IV SCH (09:25)
[2017-05-01] MEDS ORDERED: OXYCODONE/ACETAMINOPHEN 5-325 TAB PO PRN ×2 (09:30)
--- NOTE | 2017-05-01 09:30 | Discharge Instructions ---
Discharge Instructions Date of Service May 01, 2017. Admission Reason for Admission: Lymphadenopathy Discharge Discharge Diagnosis / Problem: Lymphadenopathy Discharge Goals Goal(s): Decrease discomfort, Learn about illness Activity Recommendations Activity Limitations: as noted below Lifting Limitations: no more than 10 pounds Exercise/Sports Limitations: until after follow-up appointment May Resume Sexual Activity: after follow-up appointment Shower/Bathe: tomorrow Driving or Machine Use: resume 1 day after discharge . Instructions / Follow-Up Instructions / Follow-Up Please follow-up with Dr. Cameron in the office in 1-2 weeks. Please call the office at [phone] to make an appointment if you do not have one already. You have dissolvable sutures that do not need to be removed. You may keep a gauze bandage over the incision. You may shower tomorrow AM. Current Hospital Diet Patient's current hospital diet: Discharge Diet Recommended Diet: Regular Diet Procedures Procedures Performed: Right Groin Lymph Node Incisional Biopsy, with Frozen Section Pending Studies Studies pending at discharge: yes List of pending studies: Pathology report. Laboratory Results Lipid Panel Test 03/18/17 08:43 Range/Units Triglycerides Level 152 H 0-150 mg/dl Cholesterol Level 180 0-200 mg/dl HDL Cholesterol 44 mg/dl Cholesterol/HDL Ratio 4.1 LDL Cholesterol, Calculated 106 mg/dl Medical Emergencies . Who to Call and When: Medical Emergencies: If at any time you feel your situation is an emergency, please call 911 immediately. . Non-Emergent Contact Non-Emergency issues call your: Primary Care Provider, Surgeon Call Non-Emergent contact if: temperature is above 101.5, your pain is not controlled, wound has increased drainage, wound has increased redness . "Provider Documentation" section prepared by Cristina Woods. . VTE Core Measure Inpt VTE Proph given/why not?: Abdoul Lyons
--- NOTE | 2017-05-01 09:49 | Anesthesiology Progress Note ---
Anesthesia Post Op Note Date & Time May 01, 2017 at 09:48 Vital Signs Pain Intensity: 0 Vital Signs Past 12 Hours Date Time Temp Pulse Resp B/P (MAP) Pulse Ox O2 Delivery O2 Flow Rate FiO2 05/01/17 09:24 36.5 18 107/59 98 Room Air 05/01/17 06:54 36.5 72 18 123/55 (77) 98 Room Air Notes Mental Status: alert / awake / arousable, participated in evaluation Pt Amnestic to Procedure: Yes Nausea / Vomiting: adequately controlled Pain: adequately controlled Airway Patency, RR, SpO2: stable & adequate BP & HR: stable & adequate Hydration State: stable & adequate Anesthetic Complications: no major complications apparent
[2017-05-01 09:54] VITALS: BP 124/54; PULSE 67; O2SAT 99
[2017-05-01] MEDS ORDERED: OXYC-57 PO (10:05)
--- NOTE | 2017-05-01 10:08 | OPERATIVE REPORT ---
DATE OF OPERATION: 05/01/2017 PREOPERATIVE DIAGNOSIS: Generalized lymphadenopathy. 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 PROCEDURE: Incisional biopsy right groin node. SURGEON: Dr. Cameron. TYPESETTING MACHINE OPERATOR/TENDER: Cristina Woods PA-C. OPERATION AND FINDINGS: SUMMARY: The patient was brought into the operating room theater. Right lower quadrant was prepped with Betadine scrubbing solution and properly draped. We had palpated some groin nodes that looked to be inferior to the ligament yesterday in the office. As she had a larger node which was retroperitoneal and when she was relaxed in the operating room table, I could feel that above the inguinal ligament the area seemed more likely to give us a better yield. Therefore we used local anesthetic 0.5% Marcaine without epinephrine to infiltrate just about 2-1/2 fingerbreadths below the anterior superior iliac crest, more medially just at the edge of the rectus grossly. We made an incision approximately an inch and a quarter long, deepened through subcutaneous tissue. We kept feeling the area, went onto the external oblique which we opened along the course of its fibers. We then did a muscle splitting incision minimally and identified that we were right on top of this lymph node which grossly appeared to be hemorrhagic in nature. Once we incised it, the tissue was very friable, almost necrotic in nature. We took cultures of it for aerobes, anaerobes and AFB and also were able to sample significant amount of tissue, but again it was very friable and liquid in form. We had enough tissue that we took it to the pathology for frozen section. Initially the pathologist thought may not have enough tissue but once the frozen section was able to be identified he felt that he had enough lymphoid tissue in there and possibly this could be follicular lymphoma. With this, we then checked the wound for hemostasis prior to taking the pathologist. I placed some Surgicel in the depth of the node, closed the muscle splitting which was minimally with a few interrupted 3-0 Dexon and also the external oblique, subcutaneous tissue few 3-0 Dexon and Monocryl for subcuticular. Steri-Strips applied. The procedure was tolerated well by the patient. Estimated blood loss approximately 3 mL. The patient was taken to recovery room in good condition. I attest to the content of the Intraoperative Record and any orders documented therein. Any exception s are noted below.
[2017-05-01 10:32] VITALS: BP 115/54; PULSE 78; TEMP 37.1; O2SAT 99
== END 2017-05-01 10:53 | disposition home or self-care (01) ==
LOC: C.ACU 06:28
PROVIDERS: ATTEND Surgery
DX: C85.95 Non-Hodgkin lymphoma, unspecified, lymph nodes of inguinal region and lower limb (principal); E78.00 Pure hypercholesterolemia, unspecified; M19.90 Unspecified osteoarthritis, unspecified site; H40.9 Unspecified glaucoma; Z82.49 Family history of ischemic heart disease and other diseases of the circulatory system; Z87.891 Personal history of nicotine dependence; Z79.82 Long term (current) use of aspirin; Z79.899 Other long term (current) drug therapy

== ENCOUNTER → 2017-05-21 | Outpatient (CLI) | payer BC ==
--- NOTE | 2017-05-21 10:11 | DIAGNOSTIC IMAGING REPORT ---
PET/CT CLINICAL HISTORY: Non-Hodgkin's lymphoma. COMPARISON STUDY: PET/CT dated 02/16/2015. Abdominal CT dated 04/14/2017. Chest CT dated 08/22/2016. TECHNIQUE: One hour following the IV administration of 15.28 mCi of F-18 FDG, PET/CT examination was performed from the orbital meatal line through the bony pelvis. Noncontrast CT is performed for the purposes of anatomic correlation and attenuation correction. Note that this does not reflect a diagnostic CT examination. Images were reviewed on a separate [employer] independent workstation. Fused images were obtained. Standard uptake values reported are maximum values within the region of interest expressed in gm/mL. FINDINGS: PET FINDINGS: Head and neck: There is expected physiologic activity within the visualized brain parenchyma at the skull base and the salivary glands. There are numerous small bilateral FDG avid cervical lymph nodes. A care support representative node in the right cervical chain on image #26 measures 1.4 x 1.2 cm and demonstrates a maximum SUV of 2.4. These have increased in size and number from most recent neck imaging performed 02/16/2015. Thorax: Evaluation of the thorax demonstrates expected physiologic myocardial activity. There is bulky bilateral axillary and subpectoral lymphadenopathy. The largest axillary node is seen on the left on image #55 and measures 2.9 x 2.3 cm. This demonstrates a maximum SUV of 2.9. This has increased in size from 08/22/2016 when it measured 2.0 x 1.5 cm. There are numerous mildly enlarged mediastinal lymph nodes. The largest is precarinal seen on image #59 and measures 1.7 x 1.3 cm. This is FDG avid with a maximum SUV of 2.0, and this has modestly increased in size from 08/22/2016 when it measured 1.3 x 0.8 cm. No hilar adenopathy is clearly identified. Abdomen and pelvis: There is expected activity within the liver, spleen, kidneys, renal collecting system, and bladder. Low-level bowel activity is likely within physical limits. The spleen is enlarged, measuring 15.7 cm in length. No focal splenic lesion is identified. There is diffusely increased FDG activity throughout the spleen with a maximum SUV of 3.1. There is bulky retroperitoneal and iliac chain lymphadenopathy. This is unchanged from 04/14/2017. A care support representative left iliac chain node on image #149 measures 3.2 x 3.2 cm and demonstrates a maximum SUV of 3.9. A right external iliac chain node on image #179 measures 5.5 x 4.0 cm and demonstrates a maximum SUV of 5.6. There are mildly enlarged and FDG avid inguinal lymph nodes. The largest node on the right measures 1.7 x 1.1 cm as seen on image #192. This demonstrates a maximum SUV of 1.6. Unenhanced CT images: The visualized paranasal sinuses are clear. The salivary and thyroid glands are within normal limits. There is mild atherosclerotic calcification of the thoracic aorta which is normal in caliber. The heart is normal in size and without pericardial effusion. There is no airspace consolidation or pleural effusion. A 3 mm pleural-based pulmonary nodule in the right lower lobe as seen on image #83. There are at least 4 left lower lobe pulmonary nodules. The largest measures 4 mm as seen on image #87. These are unchanged from prior studies and of low suspicion. No concerning pulmonary lesion is identified. The unenhanced liver, gallbladder, adrenal glands, and pancreas are grossly unremarkable. The kidneys demonstrate cortical atrophy and are without hydronephrosis. The spleen is enlarged. The abdominal aorta is normal in course and caliber noting mild atherosclerotic calcification. There is no bowel obstruction. Colonic fecal retention is observed. A normal appendix is identified. No intraperitoneal free air or abdominal ascites is seen. The bladder is normal as visualized. The uterus and adnexa are normal as imaged. The skeletal structures are osteopenic. No lytic or blastic bony lesions are identified. Lumbosacral spondylosis is observed. IMPRESSION: 1. There is FDG avid cervical, axillary, mediastinal, retroperitoneal, iliac chain, and inguinal lymphadenopathy as detailed above. The axillary and chest lymphadenopathy has progressed from the most recent prior studies dated 08/22/2016 and 02/16/2015. The abdominal lymphadenopathy has not significantly changed from 04/14/2017 but has increased from earlier prior studies. 2. The spleen is enlarged and demonstrates diffusely increased FDG activity. 3. The lungs are clear. 4. Additional findings as above. Electronically signed by: Winston Correa M.D. 05/21/2017 10:10 AM Dictated Date/Time: 05/21/2017 9:52 AM
== END | disposition home or self-care (01) ==
LOC: C.PET 07:02
PROVIDERS: ATTEND Internal Medicine Hematology & Oncology
DX: C85.90 Non-Hodgkin lymphoma, unspecified, unspecified site (principal)

== ENCOUNTER → 2017-06-20 | Outpatient (CLI) | payer BC ==
--- NOTE | 2017-06-20 11:34 | DIAGNOSTIC IMAGING REPORT ---
ULTRASOUND RIGHT LOWER EXTREMITY VENOUS CLINICAL HISTORY: Right leg pain and swelling. COMPARISON STUDY: Bilateral lower extremity venous ultrasound dated 04/06/2017. TECHNIQUE: Real-time, grayscale, and color Doppler sonography of the deep veins of the right lower extremity was performed from the inguinal crease to the calf. Compression and augmentation were utilized. FINDINGS: There is no sonographic evidence of deep venous thrombosis identified in the right lower extremity. The common femoral, superficial femoral, and popliteal veins are patent and normally compressible. The greater saphenous vein and the profunda femoris vein at the junction with the common femoral vein are clear. The visualized calf veins are patent. Prominent right humeral lymph nodes are incidentally noted. IMPRESSION: There is no sonographic evidence of deep venous thrombosis identified in the right lower extremity. Electronically signed by: Winston Correa M.D. 06/20/2017 11:33 AM Dictated Date/Time: 06/20/2017 11:32 AM
== END | disposition home or self-care (01) ==
LOC: C.ULTR 11:01
PROVIDERS: ATTEND Nurse Practitioner Family
DX: C91.10 Chronic lymphocytic leukemia of B-cell type not having achieved remission (principal)

== ENCOUNTER → 2017-08-15 | Outpatient (CLI) | payer BC ==
--- NOTE | 2017-08-18 07:59 | MAMMOGRAPHY REPORT ---
BILATERAL DIGITAL SCREENING MAMMOGRAM TOMOSYNTHESIS WITH CAD: 08/15/2017 CLINICAL HISTORY: Routine screening. Patient has no complaints. TECHNIQUE: Breast tomosynthesis in addition to standard 2D mammography was performed. Current study was also evaluated with a Computer Aided Detection (CAD) system. COMPARISON: Comparison is made to exams dated: 05/10/2016 mammogram - [facility], 07/2015 mammogram - [facility], 12/07/2013 mammogram, 09/30/2012 mammogram, 08/21/2011 ma mmogram, and 05/22/2010 mammogram - [facility]. BREAST COMPOSITION: The tissue of both breasts is heterogeneously dense, which may obscure small mas ses. FINDINGS: No suspicious masses, calcifications, or areas of architectural distortion are noted in ei ther breast. There has been no significant interval change compared to prior exams. IMPRESSION: ACR BI-RADS CATEGORY 1: NEGATIVE There is no mammographic evidence of malignancy. A 1 year screening mammogram is recommended. The pa tient will receive written notification of the results. Approximately 10% of breast cancers are not detected with mammography. A negative mammographic report should not delay biopsy if a clinically suggestive mass is present. Meli Gunderson M.D. ah/:08/15/2017 14:44:06 Semiconductor Development Technician: Sharri DOWD)([place]ame[place])([place]), [facility] letter sent: Normal 1/2 BI-RADS Code: ACR BI-RADS Category 1: Negative
== END | disposition home or self-care (01) ==
LOC: C.MAMM 14:14
PROVIDERS: ATTEND Obstetrics & Gynecology
DX: Z12.31 Encounter for screening mammogram for malignant neoplasm of breast (principal); Z12.4 Encounter for screening for malignant neoplasm of cervix

== ENCOUNTER → 2017-09-23 | Outpatient (CLI) | payer BC ==
[~2017-09-23] MED LIST changes: +OPTIRAY 320 IV PRN
--- NOTE | 2017-09-23 13:45 | DIAGNOSTIC IMAGING REPORT ---
ABD/PELVIS IV AND ORAL CONT CT DOSE: HISTORY: Lymphoma B CELL LYMPHOMA TECHNIQUE: Multiaxial CT images of the abdomen and pelvis were performed following the use of intravenous and oral contrast. A dose lowering technique was utilized adhering to the principles of ALARA. COMPARISON STUDY: 04/14/2017 FINDINGS: Lung bases are clear. Moderate stable splenomegaly. Liver enhances uniformly. Gallbladder is moderately contracted. Pancreas is uniform throughout. The upper abdominal adenopathy as well as periportal thiago change is considerably diminished. Retroperitoneal adenopathy in Adenopathy is also considerably diminished. A node previously measured 2.3 cm transaxial image 33 now measures 1.6 cm. All additional nodes show similar improvement. Bowel pattern overall is nonobstructive. There is moderate increase in fecal load throughout the colon. The appendix is normal. Bladder is midline. IMPRESSION: 1. Considerable improvement in the adenopathy previously described within the abdomen and pelvis. 2. Improvement in the upper abdominal adenopathy by no less than 50% overall. 3. No significant residual pelvic adenopathy. 4. Stable splenomegaly. The above report was generated using voice recognition software. It may contain grammatical, syntax or spelling errors. Electronically signed by: Tomi Ortega M.D. 09/23/2017 1:43 PM Dictated Date/Time: 09/23/2017 1:38 PM
--- NOTE | 2017-09-23 13:55 | DIAGNOSTIC IMAGING REPORT ---
CT SCAN OF THE CHEST WITH IV CONTRAST CLINICAL HISTORY: Lymphoma. COMPARISON STUDY: Chest CT scans dated 01/24/2016 and 01/18/1715. PET/CT dated 05/21/2017. TECHNIQUE: Following the IV administration of 93 cc of Optiray 320, CT scan of the thorax was performed from the thoracic inlet to the upper abdomen. Images are reviewed in the axial, sagittal, and coronal planes. IV contrast was administered without complication. A dose lowering technique was utilized adhering to the principles of ALARA. CT DOSE: 455.27 mGy.cm FINDINGS: Thyroid: Imaged portions of the thyroid gland are normal in size and attenuation. Thoracic aorta: There is mild atherosclerotic calcification of the thoracic aorta, which is normal in caliber and demonstrates standard 3-vessel arch anatomy. No dissection is seen. Pulmonary vasculature: The pulmonary trunk is normal in caliber. There are no filling defects identified in the central pulmonary vessels to indicate pulmonary embolus. Note that this examination was not protocoled for evaluation of the pulmonary arteries. Heart: The heart is normal in size and configuration, and without pericardial effusion. Lungs and pleural spaces: There is no airspace consolidation or pleural effusion. There are numerous (greater than 10) pulmonary and pleural-based nodules present throughout both lungs. These are greatest at the lung bases. Lead Java Developer Architect nodules are seen in the left lower lobe on image #230 measuring 5 mm and in the right lower lobe on image #84 measuring up to 4 mm. The 7 present on prior studies dating back to 2014. The trachea and central airways are clear. Mediastinum: There is no mediastinal lymphadenopathy. Sandi: Clear. Axillae: There are mildly enlarged axillary lymph nodes, left greater than right. The largest is seen on image #66 and measures 1.4 x 1.1 cm. These have decreased in size from 05/21/2017. Upper abdomen: The spleen appears markedly enlarged. A tiny hiatal hernia is identified. Skeletal structures: The skeletal structures are osteopenic. No lytic or blastic bony lesions are seen. IMPRESSION: 1. Mildly enlarged axillary lymph nodes have decreased in size as compared to the 05/21/2017 PET examination. 2. There are no pathologically enlarged mediastinal or hilar lymph nodes. 3. Marked splenomegaly. 4. There is no airspace consolidation or pleural effusion. 5. Numerous (greater than 10) pathologically indeterminant pulmonary and pleural-based nodules are again seen at both lung bases. These have been present dating back to the 01/25/2015 examination. 6. Additional findings as above. Electronically signed by: Winston Correa M.D. 09/23/2017 1:54 PM Dictated Date/Time: 09/23/2017 1:45 PM
== END | disposition home or self-care (01) ==
LOC: C.CTS 12:43
PROVIDERS: ATTEND Internal Medicine Hematology & Oncology
DX: C91.10 Chronic lymphocytic leukemia of B-cell type not having achieved remission (principal)

== ENCOUNTER 2017-12-07 19:00 | Inpatient (IN) | payer BC, OTHER ==
[~2017-12-07] VITALS: Ht 160 cm; Wt 61.1 kg
[~2017-12-07 19:00] MED LIST changes: -OPTIRAY 320 IV PRN
[2017-12-07] MEDS ORDERED: SODIUM CHLORIDE 0.9% 1000ML 1,000 ML IV STA ×3 (19:24→21:26)
[2017-12-07] MEDS ORDERED: ONDANSETRON INJ 2 MG/ML 2 ML VIAL IV STA (19:24)
[2017-12-07] MEDS ORDERED: FENTANYL CITRATE INJ 50 MCG/1 ML 2 ML VIAL IV STA (19:31)
[2017-12-07 19:53] LABS: HEMOGLOBIN 11.8 g/dL (12.0-16.0); MEAN CELL VOLUME 80.4 fL (80-100); MEAN CORPUSCULAR HEMOGLOBIN 26.3 pg (25-34); MEAN CORPUSCULAR HGB CONC 32.8 g/dl (32-36); MEAN PLATELET VOLUME 9.3 fL (7.4-10.4); NUCLEATED RED BLOOD CELL ABS 0.18 K/uL (0-0); PLATELET COUNT 125 K/uL (130-400); RED CELL DISTRIBUTION WIDTH CV 15.1 % (11.5-14.5); RED CELL DISTRIBUTION WIDTH SD 44.1 fL (36.4-46.3); WHITE BLOOD COUNT 11.93 K/uL (4.8-10.8)
--- NOTE | 2017-12-07 19:56 | EMERGENCY ROOM VISIT NOTE ---
History Report prepared by Deuce: Sneha Sidhu Under the Supervision of: Dr. Jamir Gan M.D. First contact with patient: 19:09 Chief Complaint: ABDOMINAL PAIN Stated Complaint: LOWER L QUADRANT PAIN History of Present Illness The patient is a 72 year old female who presents to the Emergency Room with complaints of persistent left lower quadrant abdominal pain that began about 7 hours ago. She reports a history of lymphoma, noting that her oncologist recently reduced the dose of her oral chemo therapeutics, which has been causing her abdominal distress, distention, and nausea. The patient states that last night she was finally able to sleep laying down, noting that she had been sleeping in a recliner chair due to her discomfort. She notes that about 7 hours ago, she began experiencing severe left lower quadrant abdominal pain. The patient denies any burning with urination, blood in her urine, vomiting, diarrhea, or blood in her urine. She reports that she took some Tylenol about 2 hours after her pain began, noting it relieved her discomfort but it began again about 4 hours later. The patient states that a recent CT scan showed that her spleen was enlarged. Source of History: patient Onset: about 7 hours ago Position: abdomen (LLQ) Symptom Intensity: severe Quality: other (LLQ abdominal pain) Timing: other (persistent) Modifying Factors (Relieving): tylenol (2 hours after pain began) Associated Symptoms: + nausea, No vomiting, No diarrhea Note: Patient denies any burning with urination, blood in her urine, vomiting, diarrhea, or blood in her urine. Review of Systems See HPI for pertinent positives and negatives. A total of ten systems were reviewed and were otherwise negative. Past Medical & Surgical Medical Problems: (1) Abdominal pain (2) S/P hernia repair Family History Hypertension Social History Smoking Status: Never Smoker Alcohol Use: none Drug Use: none Marital Status: single Housing Status: lives alone Occupation Status: retired Current/Historical Medications Scheduled Acetaminophen (Tylenol), 650 MG PO Q2D Cholecalciferol (Vitamin D 1000 Unit), 2,000 INTER.UNIT PO DAILY Escitalopram Oxalate (Lexapro), 5 MG PO DAILY Pantoprazole (Protonix), 40 MG PO DAILY Polyethylene Glycol 3350 (Miralax), 17 GM PO DAILY Simvastatin (Zocor), 40 MG PO QPM Scheduled PRN Naproxen (Naprosyn), 500 MG PO BID PRN for Pain Ondansetron Hcl (Zofran), 4 MG PO Q6 PRN for Nausea Allergies Coded Allergies: Allopurinol (Verified Allergy, Unknown, rash, 12/07/17) Physical Exam Vital Signs Date Time Temp Pulse Resp B/P (MAP) Pulse Ox O2 Delivery O2 Flow Rate FiO2 12/07/17 21:03 85 18 139/65 12/07/17 20:26 79 12/07/17 19:49 79 16 94 Room Air 12/07/17 19:03 36.6 96 18 152/89 94 Room Air Physical Exam GENERAL: Awake, alert, fatigued-appearing, uncomfortable, but in no distress HENT: Dry mucous membranes. Normocephalic, atraumatic. Oropharynx unremarkable. EYES: Normal conjunctiva. Sclera non-icteric. NECK: Supple. No nuchal rigidity. FROM. No JVD. RESPIRATORY: Clear to auscultation. CARDIAC: Regular rate, normal rhythm. Extremities warm and well perfused. Pulses equal. ABDOMEN: Soft, moderate tenderness of left lower quadrant, non-distended.No peritoneal signs. RECTAL: Deferred. MUSCULOSKELETAL: Chest examination reveals no tenderness. The back is symmetrical on inspection without obvious abnormality. There is no CVA tenderness to palpation. No joint edema. LOWER EXTREMITIES: Calves are equal size bilaterally and non-tender. No edema. No discoloration. NEURO: Normal sensorium. No sensory or motor deficits noted. SKIN: No rash or jaundice noted. Medical Decision & Procedures ER Provider Diagnostic Interpretation: Radiology results as stated below per my review and radiologist interpretation: CT ABD/PELVIS IV CONTRAST ONLY CLINICAL HISTORY: Left lower quadrant abdominal pain. Nausea. Lymphoma. COMPARISON STUDY: 09/23/2017 TECHNIQUE: Following the IV administration of 115 mL of Optiray-320, CT scan of the abdomen and pelvis was performed from the lung bases to the proximal femurs. Images are reviewed in the axial, sagittal, and coronal planes. IV contrast was administered without complication. A dose lowering technique was utilized adhering to the principles of ALARA. CT DOSE: 282.62 mGy.cm FINDINGS: Lower chest: Since the prior study, the patient has developed a small left pleural effusion. There are bilateral lower lobe airspace opacities, likely atelectatic although an inflammatory/infectious process could appear similar Liver: There is hepatic steatosis. No focal masses are visualized. The liver is enlarged measuring 23 cm. Gallbladder: Unremarkable. Spleen: There is progressive marked splenomegaly. The spleen measures 18 cm in length. There are several splenic hypodensities consistent with intrasplenic masses. The largest measures 18 mm. In addition there are several small peripheral hypodensities which could reflect small splenic infarcts. Pancreas: Unremarkable. Adrenal glands: Unremarkable. Kidneys: There is symmetric renal cortical enhancement. The kidneys are normal in size without hydronephrosis. Bowel: There are no transition zones indicate bowel obstruction. There is no acute diverticulitis. The appendix appears normal. Peritoneum: There is no intraperitoneal free air or abdominal ascites. Vasculature: The abdominal aorta is normal in course and caliber. Adenopathy: There are enlarged aortocaval lymph nodes. An index left pelvic lymph node measures 3 cm. This previously measured 13 mm. There is mild bilateral adrenal adenopathy. There are mildly enlarged iliac lymph nodes. Pelvic viscera: The bladder, and pelvic viscera are unremarkable. Skeletal structures: No destructive osseous lesions are seen. IMPRESSION: 1. Progressive retroperitoneal lymphadenopathy 2. Progressive marked splenomegaly with development of intrasplenic masses. In addition there are peripheral splenic hypodensities possibly representing infarcts 3. Interval development of a left pleural effusion. Bibasilar atelectasis. 4. No evidence of bowel obstruction. No evidence of free air. 5. Normal appendix Electronically signed by: Sandor Abernathy M.D. 12/07/2017 9:03 PM Dictated Date/Time: 12/07/2017 8:56 PM Laboratory Results Test 12/07/17 19:30 12/07/17 19:40 Urine Color DK YELLOW Urine Appearance CLEAR (CLEAR) Urine pH 6.0 (4.5-7.5) Urine Specific [place] 1.029 (1.000-1.030) Urine Protein 1+ (NEG) Urine Glucose (UA) NEG (NEG) Urine Ketones TRACE (NEG) Urine Occult Blood NEG (NEG) Urine Nitrite NEG (NEG) Urine Bilirubin NEG (NEG) Urine Urobilinogen POS (NEG) Urine Leukocyte Esterase TRACE (NEG) Urine WBC (Auto) 1-5 /hpf (0-5) Urine RBC (Auto) 10-30 /hpf (0-4) Urine Hyaline Casts (Auto) 1-5 /lpf (0-5) Urine Epithelial Cells (Auto) 10-20 /lpf (0-5) Urine Bacteria (Auto) NEG (NEG) Est Creatinine Clear Calc Drug Dose 42.9 ml/min Direct Bilirubin 0.4 mg/dl (0-0.2) Lipase 238 U/L (73-393) Laboratory results reviewed by me Medications Administered Medications (Trade) Dose Ordered Sig/Lex Route Start Time Stop Time Status Last Admin Dose Admin Sodium Chloride 1,000 ml @ 999 mls/hr Q1H1M STAT IV 12/07/17 19:24 12/07/17 20:24 DC 12/07/17 19:38 999 MLS/HR Ondansetron HCl (Zofran Inj) 4 mg NOW STAT IV 12/07/17 19:24 12/07/17 19:26 DC 12/07/17 19:39 4 MG Fentanyl Citrate (Fentanyl Inj) 50 mcg NOW STAT IV 12/07/17 19:31 12/07/17 19:32 DC 12/07/17 19:48 50 MCG Sodium Chloride 1,000 ml @ 999 mls/hr Q1H1M STAT IV 12/07/17 20:07 12/07/17 21:07 DC 12/07/17 20:07 999 MLS/HR Morphine Sulfate (MoRPHine SULFATE INJ) 4 mg NOW STAT IV 12/07/17 21:26 12/07/17 21:27 DC 12/07/17 21:32 4 MG Sodium Chloride 1,000 ml @ 250 mls/hr Q4H STAT IV 12/07/17 21:26 12/08/17 01:25 DC 12/07/17 21:26 250 MLS/HR ED Course 1912: The patient was evaluated in room B7. A complete history and physical exam was performed. 2134: I discussed the patient with Dr. Mckeon [facility] - He will evaluate the patient for further treatment. 2145: I reevaluated the patient and discussed test findings and the treatment plan. She verbalized complete understanding and agreement. Medical Decision I reviewed the patient's past medical history, medications, and the nursing notes as described above. Differential diagnosis includes worsening malignancy, perforation, bowel obstruction, gastritis, colitis, diverticulitis, aortic disease, splenic rupture /infarct, gastroenteritis among others. Patient is a 72-year-old woman with a past medical history of lymphoma currently be treated with oral Imbruvica presents to the emergency department with worsening left-sided abdominal pain per hpi. Patient follows with Dr. Cornell with oncology. On arrival patient is uncomfortable but in no acute distress, afebrile stable vital signs. Lactate mildly elevated to 2.3. WBC 11. Labs otherwise unremarkable. CT the abdomen pelvis demonstrates worsening splenic lesions with small areas consistent with splenic infarction. Patient with persistent pain despite IVF/fentanyl. Case was discussed with Dr. Oneill , oncology ground water contractor, who agrees that it is reasonable to admit the patient for supportive care and pain control given these findings. Case d/w CANDI Gu hospitalist, who will admit the patient for further management. Medication Reconcilliation Current Medication List: was personally reviewed by me Blood Pressure Screening Patient's blood pressure: Normal blood pressure Blood pressure disposition: Did not require urgent referral Consults Time Called: 2134 Consulting Physician: CANDI Gu Returned Call: 2134 I discussed the patient with CANDI Gu - He will evaluate the patient for further treatment. Impression Primary Impression: Splenic infarct Additional Impression: Metastatic disease Scribe Attestation The scribe's documentation has been prepared under my direction and personally reviewed by me in its entirety. I confirm that the note above accurately reflects all work, treatment, procedures, and medical decision making performed by me. Departure Information Dispostion Being Evaluated By Hospitalist Referrals Tammie Vázquez DO (PCP) Forms Call Back Authorization, HOME CARE DOCUMENTATION FORM, IMPORTANT VISIT INFORMATION Patient Instructions [facility] Problem Qualifiers
[2017-12-07] MEDS ORDERED: ONDA4TAB46 PO (19:59)
[2017-12-07] MEDS ORDERED: POLY335019 PO (19:59)
[2017-12-07 20:11] LABS: ALBUMIN 3.2 gm/dl (3.4-5.0); CALCIUM 9.2 mg/dl (8.5-10.1); CREATININE 1.01 mg/dl (0.60-1.20); POTASSIUM 3.9 mmol/L (3.5-5.1)
[2017-12-07 20:14] LABS: TOTAL PROTEIN 6.4 gm/dl (6.4-8.2)
[2017-12-07] MEDS ORDERED: OPTIRAY 320 IV PRN (21:00)
--- NOTE | 2017-12-07 21:04 | DIAGNOSTIC IMAGING REPORT ---
CT ABD/PELVIS IV CONTRAST ONLY CLINICAL HISTORY: Left lower quadrant abdominal pain. Nausea. Lymphoma. COMPARISON STUDY: 09/23/2017 TECHNIQUE: Following the IV administration of 115 mL of Optiray-320, CT scan of the abdomen and pelvis was performed from the lung bases to the proximal femurs. Images are reviewed in the axial, sagittal, and coronal planes. IV contrast was administered without complication. A dose lowering technique was utilized adhering to the principles of ALARA. CT DOSE: 282.62 mGy.cm FINDINGS: Lower chest: Since the prior study, the patient has developed a small left pleural effusion. There are bilateral lower lobe airspace opacities, likely atelectatic although an inflammatory/infectious process could appear similar Liver: There is hepatic steatosis. No focal masses are visualized. The liver is enlarged measuring 23 cm. Gallbladder: Unremarkable. Spleen: There is progressive marked splenomegaly. The spleen measures 18 cm in length. There are several splenic hypodensities consistent with intrasplenic masses. The largest measures 18 mm. In addition there are several small peripheral hypodensities which could reflect small splenic infarcts. Pancreas: Unremarkable. Adrenal glands: Unremarkable. Kidneys: There is symmetric renal cortical enhancement. The kidneys are normal in size without hydronephrosis. Bowel: There are no transition zones indicate bowel obstruction. There is no acute diverticulitis. The appendix appears normal. Peritoneum: There is no intraperitoneal free air or abdominal ascites. Vasculature: The abdominal aorta is normal in course and caliber. Adenopathy: There are enlarged aortocaval lymph nodes. An index left pelvic lymph node measures 3 cm. This previously measured 13 mm. There is mild bilateral adrenal adenopathy. There are mildly enlarged iliac lymph nodes. Pelvic viscera: The bladder, and pelvic viscera are unremarkable. Skeletal structures: No destructive osseous lesions are seen. IMPRESSION: 1. Progressive retroperitoneal lymphadenopathy 2. Progressive marked splenomegaly with development of intrasplenic masses. In addition there are peripheral splenic hypodensities possibly representing infarcts 3. Interval development of a left pleural effusion. Bibasilar atelectasis. 4. No evidence of bowel obstruction. No evidence of free air. 5. Normal appendix Electronically signed by: Sandor Abernathy M.D. 12/07/2017 9:03 PM Dictated Date/Time: 12/07/2017 8:56 PM
[2017-12-07] MEDS ORDERED: MoRPHine SULFATE 4 MG/ML 1 ML CARP\\VIAL IV STA (21:26)
[2017-12-07] MEDS ORDERED: POLYETHYLENE (MIRALAX) 17 GM PACK PO PRN (22:15)
[2017-12-07] MEDS ORDERED: ONDANSETRON INJ 2 MG/ML 2 ML VIAL IV PRN (22:15)
[2017-12-07] MEDS ORDERED: MAGNESIUM HYDROXIDE SUSP 30 ML UDC PO PRN (22:15)
[2017-12-07] MEDS ORDERED: ALUMINUM/MAGNESIUM/SIMETH (MAALOX MAX) 30 ML UDC PO PRN (22:15)
--- NOTE | 2017-12-07 22:51 | History and Physical ---
History & Physical Date & Time of Service: Dec 07, 2017 at 22:33 Chief Complaint: Lower L Quadrant Pain Primary Care Physician: Tammie Vázquez DO History of Present Illness Source: patient, hospital records 72 year old female with a PMH of lymphoma, gerd and hld who presented to the ED due to worsening abdominal pain Her abdominal pain has been intermittent and mild for the past 3 weeks. This afternoon at 5pm her abdominal pain became worse. It is located along her left abdominal area. It is non radiating and it is described as an ache. She says it was a 10/10 in severity. She took tylenol which did not help with her pain. She notes that her appetite has been down for the last couple of days. She denies any vomiting, diarrhea, constipation, fevers, chills, dysuria, vaginal bleeding or discharge. In the ED her vitals were stable. Her labs showed a WBC of 11.9 a hgb of 11.8 and lactic acid of 2.3. A CT scan of her abdomen progressive retroperitoneal lymphadenopathy and progressive marked splenomegaly with development of intrasplenic masses likely representing infarcts. The patient was given fentanyl , morphine and 2 L of IVF to help control her pain. Dr. Gan spoke to the x ray control equipment repairer oncologist who suggested the patient be admitted for pain management. Past Medical/Surgical History Medical Problems: (1) Abdominal pain (2) Cat bite of hand (3) Cat bite of hand (4) Cellulitis (5) Groin pain (6) Lymphadenopathy (7) Need for tetanus booster (8) S/P hernia repair (9) Swelling of right extremity Lymphoma Family History Hypertension Social History Smoking Status: Never Smoker Smokeless Tobacco Use: No Alcohol Use: none Drug Use: none Marital Status: single Occupational Status: retired Immunizations History of Influenza Vaccine: Unknown History of Tetanus Vaccine?: Unknown History of Pneumococcal: Unknown History of Hepatitis B Vaccine: Unknown Allergies Coded Allergies: Allopurinol (Verified Allergy, Unknown, rash, 12/07/17) Home Medications Scheduled Acetaminophen (Tylenol), 650 MG PO Q2D Cholecalciferol (Vitamin D 1000 Unit), 2,000 INTER.UNIT PO DAILY Escitalopram Oxalate (Lexapro), 5 MG PO DAILY Pantoprazole (Protonix), 40 MG PO DAILY Polyethylene Glycol 3350 (Miralax), 17 GM PO DAILY Simvastatin (Zocor), 40 MG PO QPM Scheduled PRN Naproxen (Naprosyn), 500 MG PO BID PRN for Pain Ondansetron Hcl (Zofran), 4 MG PO Q6 PRN for Nausea Review of Systems Constitutional: + fatigue, No fever, No chills Respiratory: No cough, No sputum, No shortness of breath Cardiovascular: No chest pain, No edema, No palpitations Abdomen: + pain, + nausea, No vomiting, No diarrhea, No constipation, No GI bleeding Musculoskeletal: No joint pain, No muscle pain, No swelling, No calf pain Genitourinary - Female: No dysuria, No urinary frequency, No hematuria Neurologic: No weakness, No numbness/tingling Integumentary: No rash Physical Exam Vital Signs Date Time Temp Pulse Resp B/P (MAP) Pulse Ox O2 Delivery O2 Flow Rate FiO2 12/07/17 21:03 85 18 139/65 12/07/17 20:26 79 12/07/17 19:49 79 16 94 Room Air 12/07/17 19:03 36.6 96 18 152/89 94 Room Air General Appearance: WD/WN, no apparent distress Head: normocephalic, atraumatic ENT: hearing grossly normal, pharynx normal Neck: supple, thyroid normal, no JVD, no carotid bruits, trachea midline Respiratory/Chest: lungs clear, no respiratory distress, no accessory muscle use, + decreased breath sounds (at the bases) Cardiovascular: normal peripheral pulses, + systolic murmur (3/6 best heard at the LUSB) Abdomen/GI: soft, + tenderness (tender in the LUQ and epigastric region), + pertinent finding (no rebound or guarding) Back: no CVA tenderness, normal range of motion Extremities/Musculoskelatal: normal inspection, no calf tenderness, no pedal edema, normal range of motion Neurologic/Psych: alert, normal mood/affect, oriented x 3 Skin: normal color, warm/dry, no rash Diagnostics Laboratory Results Results Past 24 Hours Test 12/07/17 19:30 12/07/17 19:32 12/07/17 19:40 Range/Units Urine Color DK YELLOW Urine Appearance CLEAR CLEAR Urine pH 6.0 4.5-7.5 Urine Specific [place] 1.029 1.000-1.030 Urine Protein 1+ NEG Urine Glucose (UA) NEG NEG Urine Ketones TRACE NEG Urine Occult Blood NEG NEG Urine Nitrite NEG NEG Urine Bilirubin NEG NEG Urine Urobilinogen POS NEG Urine Leukocyte Esterase TRACE NEG Urine WBC (Auto) 1-5 0-5 /hpf Urine RBC (Auto) 10-30 0-4 /hpf Urine Hyaline Casts (Auto) 1-5 0-5 /lpf Urine Epithelial Cells (Auto) 10-20 0-5 /lpf Urine Bacteria (Auto) NEG NEG Lactic Acid Level 2.3 0.4-2.0 mmol/L White Blood Count 11.93 4.8-10.8 K/uL Red Blood Count 4.48 4.2-5.4 M/uL Hemoglobin 11.8 12.0-16.0 g/dL Hematocrit 36.0 37-47 % Mean Corpuscular Volume 80.4 80-100 fL Mean Corpuscular Hemoglobin 26.3 25-34 pg Mean Corpuscular Hemoglobin Concent 32.8 32-36 g/dl Platelet Count 125 130-400 K/uL Mean Platelet Volume 9.3 7.4-10.4 fL RDW Standard Deviation 44.1 36.4-46.3 fL RDW Coefficient of Variation 15.1 11.5-14.5 % Nucleated RBC Absolute Count (auto) 0.18 0-0 K/uL Nucleated Red Blood Cells % 1.5 % Sodium Level 135 136-145 mmol/L Potassium Level 3.9 3.5-5.1 mmol/L Chloride Level 101 98-107 mmol/L Carbon Dioxide Level 25 21-32 mmol/L Anion Gap 9.0 3-11 mmol/L Blood Urea Nitrogen 13 7-18 mg/dl Creatinine 1.01 0.60-1.20 mg/dl Est Creatinine Clear Calc Drug Dose 42.9 ml/min Estimated GFR () 64.0 Estimated GFR (Non- 55.2 BUN/Creatinine Ratio 13.3 10-20 Random Glucose 93 70-99 mg/dl Calcium Level 9.2 8.5-10.1 mg/dl Total Bilirubin 0.9 0.2-1 mg/dl Direct Bilirubin 0.4 0-0.2 mg/dl Aspartate Amino Transf (AST/SGOT) 53 15-37 U/L Alanine Aminotransferase (ALT/SGPT) 36 12-78 U/L Alkaline Phosphatase 192 45-117 U/L Total Protein 6.4 6.4-8.2 gm/dl Albumin 3.2 3.4-5.0 gm/dl Lipase 238 73-393 U/L Diagnostic Radiology CT abdomen/Pelvis 1. Progressive retroperitoneal lymphadenopathy 2. Progressive marked splenomegaly with development of intrasplenic masses. In addition there are peripheral splenic hypodensities possibly representing infarcts 3. Interval development of a left pleural effusion. Bibasilar atelectasis. 4. No evidence of bowel obstruction. No evidence of free air. 5. Normal appendix Impression Assessment and Plan 72 year old female with a PMH of lymphoma presented to the ED with abdominal pain and was found to have a splenic infarct. Abdominal pain secondary to splenic infarct due to lymphoma - pain management with morphine 4mg IV prn and morphine 2mg IV prn according to pain scale - nausea management with zofran 4mg q4 prn - Oncology consult to help in deciding home pain regimen and further workup if necessary Lymphoma - follows with Dr. Cornell - patient takes Imbruvica PO, recently switched from 3 pills to 2 pills PO. on hold in hospital at the moment - blood smear pending - Oncology consult HLD - continue statin GERD - continue pantoprazole Atelectasis - patient instructed to take deep breaths every few hours to limit her chance of getting pneumonia DVT - Lovenox subq Code - patient has living will at home and will bring in tomorrow for the charts, she is unsure of what it says Attending addendum: I have physically seen this patient, have supervised the medical residents activities, and agree with the H&P unless as otherwise noted. Assessment and Plan: Splenic infarct/increasing splenomegaly/progressive abdominal pain-- Admit for pain control with morphine as above. Zofran IV/ODT as needed nausea. Encouraged deep breathing to address atelectasis and predisposition toward pneumonia. Lymphoma-- CT suggests worsening retroperitoneal adenopathy and increasing spleen size with splenic infarct. We will hold on any further imaging such as CT of chest and defer to Dr. Cornell as a PET/CT may be more in order. GERD-- Continue pantoprazole. Hyperlipidemia-- Continue statin. Would consider adding CoQ10 or ubiquinol for the outpatient setting. Advanced Directives Existing Advance Directive: No Existing Living Will: No Existing Power of Component Engineer: No Resuscitation Status VTE Prophylaxis Will order VTE Prophylaxis: Yes Social Service Consult Cancer Patient Under [place]
[2017-12-07] MEDS ORDERED: MoRPHine SULFATE 4 MG/ML 1 ML CARP\\VIAL IV PRN (23:55)
[2017-12-08] VITALS (10 sets, daily range): BP systolic 118–148; BP diastolic 64–82; PULSE 70–87; TEMP 36–36.9; O2SAT 90–94; BMI 22.9
[2017-12-08 05:18] LABS: HEMATOCRIT 33.3 % (37-47); HEMOGLOBIN 10.6 g/dL (12.0-16.0); MEAN CELL VOLUME 80.8 fL (80-100); MEAN CORPUSCULAR HEMOGLOBIN 25.7 pg (25-34); MEAN CORPUSCULAR HGB CONC 31.8 g/dl (32-36); MEAN PLATELET VOLUME 9.1 fL (7.4-10.4); NUCLEATED RED BLOOD CELL ABS 0.15 K/uL (0-0); PLATELET COUNT 123 K/uL (130-400); RED CELL DISTRIBUTION WIDTH CV 15.2 % (11.5-14.5); RED CELL DISTRIBUTION WIDTH SD 44.9 fL (36.4-46.3); WHITE BLOOD COUNT 13.19 K/uL (4.8-10.8)
[2017-12-08] MEDS: MoRPHine SULFATE 2 MG/ML CARP IV PRN (05:35)
[2017-12-08 05:43] LABS: ALBUMIN 2.6 gm/dl (3.4-5.0); CALCIUM 8.1 mg/dl (8.5-10.1); CREATININE 0.75 mg/dl (0.60-1.20); POTASSIUM 4.2 mmol/L (3.5-5.1)
[2017-12-08 06:04] LABS: TOTAL PROTEIN 5.2 gm/dl (6.4-8.2)
[2017-12-08] MEDS: ESCITALOPRAM OXALATE 10 MG TAB PO SCH (07:58)
[2017-12-08] MEDS: PANTOprazole SOD 40 MG TAB PO SCH (07:58)
[2017-12-08] MEDS: CHOLECALCIFEROL 1000 INTER.UNIT TAB PO SCH (07:58)
[2017-12-08] MEDS: POLYETHYLENE (MIRALAX) 17 GM PACK PO SCH (07:59)
[2017-12-08 09:06] LABS: INR 1.1 (0.9-1.1); PTT PATIENT 25.4 SECONDS (21.0-31.0)
[2017-12-08] MEDS: ENOXAPARIN 40 MG/0.4 ML SYR SQ SCH (10:37)
--- NOTE | 2017-12-08 12:00 | Oncology Consultation ---
Oncology/Heme Consultation Date of Consultation: Dec 08, 2017. Attending Physician: Avi Srivastava M.D. Reason for Consultation: CLL Left upper quadrant abdominal pain History of Present Illness Ms. Max is a 72-year-old female who we first met in April of last year. At that time she had presented with edematous right leg. The abdominal CT which showed bulky intra-abdominal adenopathy. Interestingly she recalled the chest CT in 2014 that showed bilateral prominent axillary lymph nodes and a subsequent PET scan that showed that these lymph nodes were mildly hypermetabolic. PET scan was done actually because a small lung nodule that it stayed unchanged. 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 She was begun on oral imbruvica,. At first she would develop a rash but this subsided. It might have been secondary to allopurinol versus imbruvica. In any case follow-up scans in September of this year demonstrated a very nice disease response when compared to the original scans including PET scan at the outset. I should note a bone marrow biopsy was also involved at the outset. She is admitted now with left upper quadrant abdominal pain. It does have a pleuritic component to it. She denies fever or shaking chills. She denies dysuria or or nausea or vomiting although she had been having some nausea as an outpatient. I just met with her on December 03 when she complained of nausea that I thought was most likely from imbruvica. CT scan does now demonstrate disease progression within the abdomen. There are changes of a wedge shaped defect the periphery of the spleen that is new. Is a small defect but it certainly could be responsible for her pain. In addition she has developed a left pleural effusion that although not sizable could also be responsible for some of this discomfort. Past Medical/Surgical History Medical Problems: (1) Lymphadenopathy Status: Acute (2) Metastatic disease Status: Acute (3) Splenic infarct Status: Acute (4) Swelling of right extremity Status: Acute Family History Hypertension No family history of carcinoma Social History Former smoker she denies significant alcohol use Smoking Status: Never Smoker Smokeless Tobacco Use: No Alcohol Use: none Drug Use: none Marital Status: single Housing Status: lives alone Occupation Status: retired Allergies Coded Allergies: Allopurinol (Verified Allergy, Unknown, rash, 12/07/17) Home Medications Scheduled Acetaminophen (Tylenol), 650 MG PO Q2D Cholecalciferol (Vitamin D 1000 Unit), 2,000 INTER.UNIT PO DAILY Escitalopram Oxalate (Lexapro), 5 MG PO DAILY Pantoprazole (Protonix), 40 MG PO DAILY Polyethylene Glycol 3350 (Miralax), 17 GM PO DAILY Simvastatin (Zocor), 40 MG PO QPM Scheduled PRN Naproxen (Naprosyn), 500 MG PO BID PRN for Pain Ondansetron Hcl (Zofran), 4 MG PO Q6 PRN for Nausea Current Inpatient Medications Current Inpatient Medications Medications (Trade) Dose Ordered Sig/Lex Route Start Time Stop Time Status Last Admin Dose Admin Ioversol (Optiray 320) 115 ml UD PRN IV 12/07/17 21:00 12/11/17 20:59 Enoxaparin Sodium (Lovenox Inj) 40 mg DAILY SQ 12/08/17 10:00 01/07/18 09:59 Acetaminophen (Tylenol Tab) 650 mg Q4H PRN PO 12/07/17 22:15 01/06/18 22:14 Al Hydrox/Mg Hydrox/Simethicone (Maalox Max Susp) 15 ml Q4H PRN PO 12/07/17 22:15 01/06/18 22:14 Magnesium Hydroxide (Milk Of Magnesia Susp) 30 ml Q6H PRN PO 12/07/17 22:15 01/06/18 22:14 Polyethylene (Miralax Powder Packet) 17 gm DAILY PRN PO 12/07/17 22:15 01/06/18 22:14 Ondansetron HCl (Zofran Inj) 4 mg Q6H PRN IV 12/07/17 22:15 01/06/18 22:14 12/08/17 07:53 4 MG Morphine Sulfate (MoRPHine SULFATE INJ) 4 mg Q4 PRN IV 12/07/17 23:55 12/21/17 23:54 12/08/17 10:16 4 MG Morphine Sulfate (MoRPHine SULFATE INJ) 2 mg Q4 PRN IV 12/07/17 22:30 12/21/17 22:29 12/08/17 05:35 2 MG Cholecalciferol (Vitamin D Tab) 2,000 inter.unit DAILY PO 12/08/17 08:00 01/07/18 08:59 12/08/17 07:58 2,000 INTER.UNIT Escitalopram Oxalate (Lexapro Tab) 5 mg DAILY PO 12/08/17 08:00 01/07/18 08:59 12/08/17 07:58 5 MG Simvastatin (Zocor Tab) 40 mg QPM PO 12/08/17 21:00 01/07/18 20:59 Pantoprazole Sodium (Protonix Tab) 40 mg DAILY PO 12/08/17 08:00 01/07/18 08:59 12/08/17 07:58 40 MG Polyethylene (Miralax Powder Packet) 17 gm DAILY PO 12/08/17 08:00 01/07/18 08:59 12/08/17 07:59 17 GM Review of Systems Constitutional: Negative for weight loss, night sweats, or fever Eyes: Negative for event change of vision ENT: Negative for epistaxis, nasal discharge, sore throat, or deafness Cardiovascular: Negative for chest pain, palpitations, dizziness, diaphoresis Respiratory: Negative for new shortness of breath,hemoptysis, or purulent cough. Has had pain that seems to be pleuritic and that is exacerbated with deep inspiration on the left side. Gastrointestinal: Negative for diarrhea, hematemesis, melena, she continues to have some mild nausea. Again she has pain in the left upper quadrant of her abdomen that started became more prominent yesterday. Integumentary (skin): Negative for rash or jaundice discoloration Genitourinary: Negative for urinary frequency, hematuria, or dysuria Neurological: Negative for weakness, seizure activity, headache, or dizziness Lymphatic/Hematologic: Negative for petechiae, bleeding or new adenopathy Musculoskeletal: Negative for new joint or back pain Allergic/Immunologic: Negative for unusual rash or pruritis. Physical Exam Date Time Temp Pulse Resp B/P (MAP) Pulse Ox O2 Delivery O2 Flow Rate FiO2 12/08/17 08:43 91 Room Air 12/08/17 08:30 91 Room Air 12/08/17 07:42 36.6 82 22 130/82 (98) 91 Room Air 12/08/17 00:00 36.0 87 18 148/81 91 Room Air 12/07/17 23:01 78 139/65 12/07/17 21:03 85 18 139/65 12/07/17 20:26 79 12/07/17 19:49 79 16 94 Room Air 12/07/17 19:03 36.6 96 18 152/89 94 Room Air Constitutional: vitals are stable. Eyes: Eyes are WILLY EOMI without conjuctival erythema or icterus. ENT: External examination was negative for masses. Neck: Negative for masses or palpable thyromegaly Respiratory: Lung sounds were generally clear bilaterally Cardiovascular: Heart was RRR without significant murmur, gallops aoe rubs Gastrointestinal: No palpable hepatic or splenomegaly. The abdomen was soft with normal bowel sounds. Lymphatic system: there was no palpable peripheral lymphadenopathy Musculoskeletal System: The musculoskeletal system seemed concordant with age. Skin: The skin was negative for jaundice. Neurologic exam: The exam was negative for any focal findings. Deep tendon reflexes were equal and symmetrical. Psychiatric exam: Was essentially negative with normal mood and effect. Breast exam: Done within the past week in the clinic was unremarkable Extremities: Does have some mild edema both lower extremities trace to 1+ at very most Laboratory Results Last 24 Hours Test 12/07/17 19:30 12/07/17 19:32 12/07/17 19:40 12/07/17 22:47 Urine Color DK YELLOW Urine Appearance CLEAR Urine pH 6.0 Urine Specific [place] 1.029 Urine Protein 1+ Urine Glucose (UA) NEG Urine Ketones TRACE Urine Occult Blood NEG Urine Nitrite NEG Urine Bilirubin NEG Urine Urobilinogen POS Urine Leukocyte Esterase TRACE Urine WBC (Auto) 1-5 /hpf Urine RBC (Auto) 10-30 /hpf Urine Hyaline Casts (Auto) 1-5 /lpf Urine Epithelial Cells (Auto) 10-20 /lpf Urine Bacteria (Auto) NEG Lactic Acid Level 2.3 mmol/L 1.8 mmol/L White Blood Count 11.93 K/uL Red Blood Count 4.48 M/uL Hemoglobin 11.8 g/dL Hematocrit 36.0 % Mean Corpuscular Volume 80.4 fL Mean Corpuscular Hemoglobin 26.3 pg Mean Corpuscular Hemoglobin Concent 32.8 g/dl Platelet Count 125 K/uL Mean Platelet Volume 9.3 fL RDW Standard Deviation 44.1 fL RDW Coefficient of Variation 15.1 % Nucleated RBC Absolute Count (auto) 0.18 K/uL Neutrophils % (Manual) 36.0 % Lymphocytes % (Manual) 32.0 % Variant Lymphocytes % (manual) 27.0 % Monocytes % (Manual) 5.0 % Nucleated Red Blood Cells % 1.5 % Neutrophils # (Manual) 4.29 K/uL Total Absolute Neutrophils 4.29 K/uL Lymphocytes # (Manual) 3.82 K/uL Absolute Variant Lymphocytes 3.22 K/uL Total Absolute Lymphocytes 7.04 K/uL Monocytes # (Manual) 0.60 K/uL Smudge Cells PRESENT Blood Smear Review Red Blood Cell Morphology Unremarkable Sodium Level 135 mmol/L Potassium Level 3.9 mmol/L Chloride Level 101 mmol/L Carbon Dioxide Level 25 mmol/L Anion Gap 9.0 mmol/L Blood Urea Nitrogen 13 mg/dl Creatinine 1.01 mg/dl Est Creatinine Clear Calc Drug Dose 42.9 ml/min Estimated GFR () 64.0 Estimated GFR (Non- 55.2 BUN/Creatinine Ratio 13.3 Random Glucose 93 mg/dl Calcium Level 9.2 mg/dl Total Bilirubin 0.9 mg/dl Direct Bilirubin 0.4 mg/dl Aspartate Amino Transf (AST/SGOT) 53 U/L Alanine Aminotransferase (ALT/SGPT) 36 U/L Alkaline Phosphatase 192 U/L Total Protein 6.4 gm/dl Albumin 3.2 gm/dl Lipase 238 U/L Test 12/08/17 05:05 12/08/17 08:51 White Blood Count 13.19 K/uL Red Blood Count 4.12 M/uL Hemoglobin 10.6 g/dL Hematocrit 33.3 % Mean Corpuscular Volume 80.8 fL Mean Corpuscular Hemoglobin 25.7 pg Mean Corpuscular Hemoglobin Concent 31.8 g/dl Platelet Count 123 K/uL Mean Platelet Volume 9.1 fL RDW Standard Deviation 44.9 fL RDW Coefficient of Variation 15.2 % Nucleated RBC Absolute Count (auto) 0.15 K/uL Neutrophils % (Manual) 33.0 % Lymphocytes % (Manual) 30.0 % Variant Lymphocytes % (manual) 27.0 % Monocytes % (Manual) 4.0 % Eosinophils % (Manual) 2.0 % Basophils % (Manual) 1.0 % Metamyelocytes % 2.0 % Myelocytes % 1.0 % Nucleated Red Blood Cells % 1.1 % Neutrophils # (Manual) 4.35 K/uL Total Absolute Neutrophils 4.35 K/uL Lymphocytes # (Manual) 3.96 K/uL Absolute Variant Lymphocytes 3.56 K/uL Total Absolute Lymphocytes 7.52 K/uL Monocytes # (Manual) 0.53 K/uL Eosinophils # (Manual) 0.26 K/uL Basophils # (Manual) 0.13 K/uL Metamyelocytes # 0.26 K/uL Myelocytes # 0.13 K/uL Smudge Cells PRESENT Red Blood Cell Morphology Unremarkable Sodium Level 137 mmol/L Potassium Level 4.2 mmol/L Chloride Level 107 mmol/L Carbon Dioxide Level 24 mmol/L Anion Gap 6.0 mmol/L Blood Urea Nitrogen 11 mg/dl Creatinine 0.75 mg/dl Est Creatinine Clear Calc Drug Dose 57.7 ml/min Estimated GFR () 91.7 Estimated GFR (Non- 79.1 BUN/Creatinine Ratio 14.3 Random Glucose 88 mg/dl Calcium Level 8.1 mg/dl Total Bilirubin 1.0 mg/dl Aspartate Amino Transf (AST/SGOT) 37 U/L Alanine Aminotransferase (ALT/SGPT) 28 U/L Alkaline Phosphatase 150 U/L Total Protein 5.2 gm/dl Albumin 2.6 gm/dl Globulin 2.6 gm/dl Albumin/Globulin Ratio 1.0 Prothrombin Time 11.3 SECONDS Prothromb Time International Ratio 1.1 Activated Partial Thromboplast Time 25.4 SECONDS Partial Thromboplastin Ratio 1.0 Assessment & Plan CT scans were reviewed and clearly does demonstrate disease progression. This form of CLL/SLL as stated earlier can be very aggressive. She had a response but unfortunately her short-lived response to imbruvica. I spoke with her today concerning an alternative therapy using a recently approved oral medicine venetoclax (BCL-2 inhibitor). The drug will be pursued in our clinic. Because of the possibility of provoking tumor lysis the drug dose needs to be gradually ramped up over weeks. Dosing begins at 20 mg a day for a week and then moves to 50 mg a day for a week and that 100 mg a day for a week followed by 200 mg a day for a week and ultimately achieving 400 mg a day. Uric acid level should be done. I like to see a CT scan of her chest. Once we achieve the 400 mg a day dosing then to monthly Rituxan 6 doses based on some data that was recently presented at the August 2017 [employer] (MURAN[facility] study) meetings will be added to the fvenetoclax. For now we will ask for uric acid level and a CT scan of the chest. I would like to begin allopurinol however she may have an allergy to this. I do not know of a substitute drug that we could use but I will explore this with our pharmacy. Once the medicine (venetoclax) becomes available we will begin this in our clinic with a pre-hydration. I should note that none of her lymph nodes or masses are greater than 5 cm which is important for the amount of hydration that she will need with each dose adjustment. Along with this we usually also begin prophylaxis with a drug like Bactrim and (1 double strength tablet Friday and Friday) as well as acyclovir 400 mg twice daily. Again we will begin this at our clinic. Pain control for now should be primarily oral analgesics. She will of course have a follow-up in our clinic. For now we will continue the imbruvica in that this drug putatively may actually enhance the effect of venetoclax by increasing the expression of BCL-2.
[2017-12-08] MEDS ORDERED: OPTIRAY 320 IV PRN (12:15)
[2017-12-08] MEDS: ACETAMINOPHEN 325 MG TAB PO PRN ×2 (15:17→21:12)
--- NOTE | 2017-12-08 16:47 | DIAGNOSTIC IMAGING REPORT ---
CT (CHEST) THORAX WITH CLINICAL HISTORY: 72 years-old Female presenting with Hx of lymphoma with new LUQ abd. pain - compare to prev scans. TECHNIQUE: Multidetector CT imaging of the chest was performed after the administration of intravenous contrast. IV contrast: 95 mL of Optiray 320. A dose lowering technique was used consistent with the principles of ALARA (as low as reasonably achievable). COMPARISON: 09/23/2017. CT DOSE (mGy.cm): The estimated cumulative dose is 161.30 mGycm. FINDINGS: Supervisor Agency Appointments topogram: Left basilar opacity new from prior. On soft tissue windows, normal thyroid and thoracic inlet. Increased size of bilateral axillary lymph nodes, the largest on the right measuring 8 mm in the short axis (series 4 image 59) and on the left measuring 13 mm in the short axis (series 4 image 45). Enlarged mediastinal lymph nodes new from prior. This is most prominent in the right paratracheal and precarinal regions with an index node measuring up to 8 mm in short axis (series 4 image 65). Atherosclerosis of the aorta. Normal heart size. Coronary artery calcification. Interval development of small right and moderate left pleural effusions. No pericardial effusion. Splenomegaly. Focal hypodense splenic lesion in the medial aspect of the spleen measuring 2.1 cm is new from prior. On lung windows, dependent consolidation in the lower lobes with associated volume loss likely passive atelectasis. No other focal nodule or infiltrate. Previously noted subpleural nodularity in the dependent portions of the lower lobes is obscured due to atelectasis. Central airways patent. On bone windows, round lucent lesions in several vertebral bodies including T8, T10, and T11 and potentially T4 and T5. IMPRESSION: 1. Interval development of small right and moderate left pleural effusions with associated passive atelectasis. 2. Interval development of prominent and suspicious bilateral axillary and mediastinal lymph nodes concerning for recurrent disease. 3. Marked splenomegaly with interval development of a focal splenic lesion concerning for a focus of disease. 4. Round lucent lesions in several vertebral bodies of the thoracic spine are unchanged from prior exam and indeterminate. Osseous metastatic disease is difficult to exclude. Electronically signed by: Kevin Valadez M.D. 12/08/2017 4:46 PM Dictated Date/Time: 12/08/2017 4:38 PM
[2017-12-08] MEDS ORDERED: SIMVASTATIN 20 MG TAB PO SCH (21:00)
--- NOTE | 2017-12-08 22:31 | Progress Note ---
Subjective Date of Service: Dec 08, 2017. Subjective Pt evaluation today including: conversation w/ patient, physical exam 72 yo female who has pain in her left upper quadrant. Patient reports pain is moderate in intensity. Patient states it is intermittent, improves with morphine. Non radiating. Patient denies any fever, chills, nausea, vomiting. Problem List Medical Problems: (1) Lymphadenopathy Status: Acute (2) Metastatic disease Status: Acute (3) Splenic infarct Status: Acute (4) Swelling of right extremity Status: Acute Review of Systems Constitutional: No fever Eyes: No worsening of vision ENT: No hearing loss Respiratory: No cough Cardiac: No chest pain Abdomen: + pain Musculoskeletal: No joint pain Neurologic: No memory loss Psychiatric: No depression symptoms Heme: No abnormal bleeding/bruising Endo: No fatigue Skin: No rash All Other Systems: Reviewed and Negative Medications Current Inpatient Medications Medications (Trade) Dose Ordered Sig/Lex Route Start Time Stop Time Status Last Admin Dose Admin Ioversol (Optiray 320) 115 ml UD PRN IV 12/07/17 21:00 12/11/17 20:59 Enoxaparin Sodium (Lovenox Inj) 40 mg DAILY SQ 12/08/17 10:00 01/07/18 09:59 Acetaminophen (Tylenol Tab) 650 mg Q4H PRN PO 12/07/17 22:15 01/06/18 22:14 12/09/17 08:03 650 MG Al Hydrox/Mg Hydrox/Simethicone (Maalox Max Susp) 15 ml Q4H PRN PO 12/07/17 22:15 01/06/18 22:14 Magnesium Hydroxide (Milk Of Magnesia Susp) 30 ml Q6H PRN PO 12/07/17 22:15 01/06/18 22:14 Polyethylene (Miralax Powder Packet) 17 gm DAILY PRN PO 12/07/17 22:15 01/06/18 22:14 Ondansetron HCl (Zofran Inj) 4 mg Q6H PRN IV 12/07/17 22:15 01/06/18 22:14 12/08/17 07:53 4 MG Morphine Sulfate (MoRPHine SULFATE INJ) 4 mg Q4 PRN IV 12/07/17 23:55 12/21/17 23:54 12/08/17 10:16 4 MG Morphine Sulfate (MoRPHine SULFATE INJ) 2 mg Q4 PRN IV 12/07/17 22:30 12/21/17 22:29 12/08/17 05:35 2 MG Cholecalciferol (Vitamin D Tab) 2,000 inter.unit DAILY PO 12/08/17 08:00 01/07/18 08:59 12/09/17 08:00 2,000 INTER.UNIT Escitalopram Oxalate (Lexapro Tab) 5 mg DAILY PO 12/08/17 08:00 01/07/18 08:59 12/09/17 07:59 5 MG Simvastatin (Zocor Tab) 40 mg QPM PO 12/08/17 21:00 01/07/18 20:59 12/08/17 21:09 40 MG Pantoprazole Sodium (Protonix Tab) 40 mg DAILY PO 12/08/17 08:00 01/07/18 08:59 12/09/17 08:00 40 MG Polyethylene (Miralax Powder Packet) 17 gm DAILY PO 12/08/17 08:00 01/07/18 08:59 12/09/17 07:59 17 GM Ioversol (Optiray 320) 100 ml UD PRN IV 12/08/17 12:15 12/12/17 12:14 Objective Vital Signs Date Time Temp Pulse Resp B/P (MAP) Pulse Ox O2 Delivery O2 Flow Rate FiO2 12/08/17 19:22 36.6 81 16 125/72 (89) 90 Room Air 12/08/17 16:53 36.4 77 18 121/73 (89) 94 Room Air 12/08/17 16:00 94 Room Air 12/08/17 11:46 36.4 80 18 134/64 (87) 92 Room Air 12/08/17 08:43 91 Room Air 12/08/17 08:30 91 Room Air 12/08/17 07:42 36.6 82 22 130/82 (98) 91 Room Air 12/08/17 00:00 36.0 87 18 148/81 91 Room Air 12/07/17 23:01 78 139/65 Physical Exam General Appearance: WD/WN, no apparent distress Eyes: normal inspection ENT: normal ENT inspection Neck: supple, no adenopathy Respiratory/Chest: chest non-tender, lungs clear, no respiratory distress Cardiovascular: regular rate, rhythm, no edema Abdomen: normal bowel sounds, soft, + tenderness (in left upper quadrant to deep palpation.) Extremities: non-tender, no pedal edema Neurologic/Psychiatric: alert, oriented x 3 Skin: normal color Lymphatic: no adenopathy Laboratory Results Last 24 Hours Test 12/07/17 22:47 12/08/17 05:05 12/08/17 08:51 12/08/17 12:10 Lactic Acid Level 1.8 mmol/L White Blood Count 13.19 K/uL Red Blood Count 4.12 M/uL Hemoglobin 10.6 g/dL Hematocrit 33.3 % Mean Corpuscular Volume 80.8 fL Mean Corpuscular Hemoglobin 25.7 pg Mean Corpuscular Hemoglobin Concent 31.8 g/dl Platelet Count 123 K/uL Mean Platelet Volume 9.1 fL RDW Standard Deviation 44.9 fL RDW Coefficient of Variation 15.2 % Nucleated RBC Absolute Count (auto) 0.15 K/uL Neutrophils % (Manual) 33.0 % Lymphocytes % (Manual) 30.0 % Variant Lymphocytes % (manual) 27.0 % Monocytes % (Manual) 4.0 % Eosinophils % (Manual) 2.0 % Basophils % (Manual) 1.0 % Metamyelocytes % 2.0 % Myelocytes % 1.0 % Nucleated Red Blood Cells % 1.1 % Neutrophils # (Manual) 4.35 K/uL Total Absolute Neutrophils 4.35 K/uL Lymphocytes # (Manual) 3.96 K/uL Absolute Variant Lymphocytes 3.56 K/uL Total Absolute Lymphocytes 7.52 K/uL Monocytes # (Manual) 0.53 K/uL Eosinophils # (Manual) 0.26 K/uL Basophils # (Manual) 0.13 K/uL Metamyelocytes # 0.26 K/uL Myelocytes # 0.13 K/uL Smudge Cells PRESENT Red Blood Cell Morphology Unremarkable Sodium Level 137 mmol/L Potassium Level 4.2 mmol/L Chloride Level 107 mmol/L Carbon Dioxide Level 24 mmol/L Anion Gap 6.0 mmol/L Blood Urea Nitrogen 11 mg/dl Creatinine 0.75 mg/dl Est Creatinine Clear Calc Drug Dose 57.7 ml/min Estimated GFR () 91.7 Estimated GFR (Non- 79.1 BUN/Creatinine Ratio 14.3 Random Glucose 88 mg/dl Calcium Level 8.1 mg/dl Total Bilirubin 1.0 mg/dl Aspartate Amino Transf (AST/SGOT) 37 U/L Alanine Aminotransferase (ALT/SGPT) 28 U/L Alkaline Phosphatase 150 U/L Total Protein 5.2 gm/dl Albumin 2.6 gm/dl Globulin 2.6 gm/dl Albumin/Globulin Ratio 1.0 Prothrombin Time 11.3 SECONDS Prothromb Time International Ratio 1.1 Activated Partial Thromboplast Time 25.4 SECONDS Partial Thromboplastin Ratio 1.0 Uric Acid 4.9 mg/dl Lactate Dehydrogenase 346 U/L Assessment and Plan 72 year old female with a PMH of lymphoma presented to the ED with abdominal pain and was found to have a splenic infarct. Abdominal pain secondary to splenic infarct due to lymphoma - pain management with morphine 4mg IV prn and morphine 2mg IV prn according to pain scale - nausea management with zofran 4mg q4 prn -Pain medicine appears to be controlling her pain. Pain appears to be improved today. -Once patient requires lower amounts of PRN pain meds, tee consider titrating to oral. - Oncology consult to help in deciding home pain regimen and further workup if necessary Lymphoma - follows with Dr. Cornell - patient takes Imbruvica PO, recently switched from 3 pills to 2 pills PO. on hold in hospital at the moment - Oncology consult -Appreciate recommendations HLD - continue statin GERD - continue pantoprazole Atelectasis - patient instructed to take deep breaths every few hours to limit her chance of getting pneumonia DVT - Lovenox subq Code - patient has living will at home and will bring in tomorrow for the charts, she is unsure of what it says Continued [facility] stay due to: inadequate oral pain control, other Discharge planning: home
[2017-12-09 04:14] VITALS: BP 138/75; PULSE 84; TEMP 36.6; O2SAT 92
[2017-12-09 06:29] VITALS: Ht 160 cm; Wt 61.1 kg
[2017-12-09 07:30] VITALS: BP 129/76; PULSE 74; TEMP 36.7; O2SAT 91
[2017-12-09] MEDS: POLYETHYLENE (MIRALAX) 17 GM PACK PO SCH (07:59)
[2017-12-09] MEDS: ESCITALOPRAM OXALATE 10 MG TAB PO SCH (07:59)
[2017-12-09 08:00] VITALS: O2SAT 93
[2017-12-09] MEDS: CHOLECALCIFEROL 1000 INTER.UNIT TAB PO SCH (08:00)
[2017-12-09] MEDS: ENOXAPARIN 40 MG/0.4 ML SYR SQ SCH (08:00)
[2017-12-09] MEDS: PANTOprazole SOD 40 MG TAB PO SCH (08:00)
[2017-12-09] MEDS: ACETAMINOPHEN 325 MG TAB PO PRN ×2 (08:03→12:54)
[2017-12-09] MEDS: MoRPHine SULFATE 2 MG/ML CARP IV PRN ×2 (10:23→14:16)
--- NOTE | 2017-12-09 10:56 | Hematology/Oncology Prog Note ---
Hematology/Onc Progress Note Date of Service Dec 09, 2017. Diagnoses Progressive CLL/SLL Left upper quadrant abdominal or pleuritic pain Medications Medications Administered Medications (Trade) Dose Ordered Sig/Lex Route Start Time Stop Time Status Last Admin Dose Admin Sodium Chloride 1,000 ml @ 999 mls/hr Q1H1M STAT IV 12/07/17 19:24 12/07/17 20:24 DC 12/07/17 19:38 999 MLS/HR Ondansetron HCl (Zofran Inj) 4 mg NOW STAT IV 12/07/17 19:24 12/07/17 19:26 DC 12/07/17 19:39 4 MG Fentanyl Citrate (Fentanyl Inj) 50 mcg NOW STAT IV 12/07/17 19:31 12/07/17 19:32 DC 12/07/17 19:48 50 MCG Sodium Chloride 1,000 ml @ 999 mls/hr Q1H1M STAT IV 12/07/17 20:07 12/07/17 21:07 DC 12/07/17 20:07 999 MLS/HR Morphine Sulfate (MoRPHine SULFATE INJ) 4 mg NOW STAT IV 12/07/17 21:26 12/07/17 21:27 DC 12/07/17 21:32 4 MG Sodium Chloride 1,000 ml @ 250 mls/hr Q4H STAT IV 12/07/17 21:26 12/08/17 01:25 DC 12/07/17 21:26 250 MLS/HR Acetaminophen (Tylenol Tab) 650 mg Q4H PRN PO 12/07/17 22:15 01/06/18 22:14 12/09/17 08:03 650 MG Ondansetron HCl (Zofran Inj) 4 mg Q6H PRN IV 12/07/17 22:15 01/06/18 22:14 12/08/17 07:53 4 MG Morphine Sulfate (MoRPHine SULFATE INJ) 4 mg Q4 PRN IV 12/07/17 23:55 12/21/17 23:54 12/08/17 10:16 4 MG Morphine Sulfate (MoRPHine SULFATE INJ) 2 mg Q4 PRN IV 12/07/17 22:30 12/21/17 22:29 12/09/17 10:23 2 MG Cholecalciferol (Vitamin D Tab) 2,000 inter.unit DAILY PO 12/08/17 08:00 01/07/18 08:59 4/10/18 08:00 2,000 INTER.UNIT Escitalopram Oxalate (Lexapro Tab) 5 mg DAILY PO 12/08/17 08:00 01/07/18 08:59 12/09/17 07:59 5 MG Simvastatin (Zocor Tab) 40 mg QPM PO 12/08/17 21:00 01/07/18 20:59 12/08/17 21:09 40 MG Pantoprazole Sodium (Protonix Tab) 40 mg DAILY PO 12/08/17 08:00 01/07/18 08:59 12/09/17 08:00 40 MG Polyethylene (Miralax Powder Packet) 17 gm DAILY PO 12/08/17 08:00 01/07/18 08:59 12/09/17 07:59 17 GM Subjective She states the pain is more controlled although from time to time it does become more pronounced. CT scan of the chest was reviewed with her today and does demonstrate further progression of adenopathy both mediastinal as well as axillary and a left pleural effusion. Review of Systems: Constitutional: Negative for night sweats, or fever Eyes: Negative for event change of vision ENT: Negative for epistaxis, nasal discharge, sore throat, or deafness Cardiovascular: Negative for chest pain, palpitations, dizziness, diaphoresis Respiratory: Negative for new shortness of breath,hemoptysis, or purulent cough Gastrointestinal: Negative for diarrhea, hematemesis, melena, nausea, vomiting , or dyspepsia Integumentary (skin): Negative for rash or jaundice discoloration Genitourinary: Negative for urinary frequency, hematuria, or dysuria Neurological: Negative for weakness, seizure activity, headache, or dizziness Lymphatic/Hematologic: Negative for petechiae, bleeding or new adenopathy Musculoskeletal: Negative for new joint or back pain Allergic/Immunologic: Negative for unusual rash or pruritis. Vital Signs Vital Signs Past 12 Hours Date Time Temp Pulse Resp B/P (MAP) Pulse Ox O2 Delivery O2 Flow Rate FiO2 12/09/17 08:00 93 Room Air 12/09/17 07:30 36.7 74 18 129/76 (93) 91 Room Air 12/09/17 04:14 36.6 84 20 138/75 (96) 92 Room Air 12/09/17 00:00 Room Air 12/08/17 23:46 36.9 80 18 118/70 (86) 92 Room Air Physical Exam Constitutional: vitals are stable. Eyes: Eyes are WILLY EOMI without conjuctival erythema or icterus. ENT: External examination was negative for masses. Neck: Negative for masses or palpable thyromegaly Respiratory: Lung sounds were generally clear bilaterally. Sounds were decreased at the left base Cardiovascular: Heart was RRR without significant murmur, gallops aoe rubs Gastrointestinal: No palpable hepatic or splenomegaly. The abdomen was soft with normal bowel sounds. Lymphatic system: there was no palpable peripheral lymphadenopathy Musculoskeletal System: The musculoskeletal system seemed concordant with age. Skin: The skin was negative for jaundice. Neurologic exam: The exam was negative for any focal findings. Deep tendon reflexes were equal and symmetrical. Psychiatric exam: Was essentially negative with normal mood and effect. Breast exam: Not done Extremities: Negative for significant edema Laboratory Last 24 Hours Test 12/08/17 12:10 Uric Acid 4.9 mg/dl Lactate Dehydrogenase 346 U/L Assessment & Plan CT scan of the chest was reviewed with her. Lab work remains stable. I have submitted the prescriptions for the venetoclax as outlined in the original note. This will begin as an outpatient. She reminded me yesterday of the skin rash that she experienced while taking allopurinol. It prompted (and was severe enough) that we started steroids in June of last year because of the rash and stopped the allopurinol. At that time it was a concern as to whether the imbruvica that could have caused the rash but the imbruvica has continued without recurrence. Subsequently allopurinol administration may be difficult. The size of her lymph nodes in the amount of circulating lymphocytes are such that predictability of a tumor lysis syndrome although possible is at low risk. We could try to desensitize her to the allopurinol but the programs available for desensitization are not always successful it would take several weeks to accomplish. Alternatively she will receive IV hydration with each week of dose ramping up of the venetoclax. Uric acid will be checked fairly frequently (at least 2 times a week) and if it begins to climb then rasburicase can be given in our clinic. I believe this would be the best way to approach this potential problem for now. We really do not have recommended drug to use for Tumor lysis syndrome prophylaxis that is predictably reliable or easily delivered.. Finally she will need intermittent doses of oral anagesics to help with the pain. Lets aklso start a relatuively small dose of daily prednisone to help with any inflammation (and has some lympholytic effect). Will Rx 40 mg of daily prednisone. Should be able to discharge soon.
[2017-12-09 11:34] VITALS: BP 121/69; PULSE 86; TEMP 36.7; O2SAT 92
[2017-12-09 15:02] VITALS: BP 128/71; PULSE 83; TEMP 36.5; O2SAT 90
[2017-12-09] MEDS ORDERED: OXYC-609 PO (17:38)
[2017-12-09] MEDS ORDERED: PRD20 PO (17:38)
[2017-12-09 17:41] VITALS: BP 128/71; PULSE 83; TEMP 36.5; O2SAT 90
--- NOTE | 2017-12-09 17:43 | Discharge Instructions ---
Discharge Instructions Date of Service Dec 09, 2017. Admission Reason for Admission: Abdominal Pain Discharge Discharge Diagnosis / Problem: Splenic infarct/ lymphoma Discharge Goals Goal(s): Decrease discomfort, Improve function Activity Recommendations Activity Limitations: resume your previous activity . Instructions / Follow-Up Instructions / Follow-Up F/U with PCP in 1-2 weeks F/U with Hem/onc in 1-2 weeks Current Hospital Diet Patient's current hospital diet: Regular Diet Discharge Diet Recommended Diet: Regular Diet Pending Studies Studies pending at discharge: no Medical Emergencies . Who to Call and When: Medical Emergencies: If at any time you feel your situation is an emergency, please call 911 immediately. . Non-Emergent Contact Non-Emergency issues call your: Primary Care Provider Call Non-Emergent contact if: your pain is worsening . . "Provider Documentation" section prepared by Avi Srivastava. .
== END 2017-12-09 18:41 | disposition home or self-care (01) | DRG 815 ==
LOC: C.EDB 19:00 → C.4E 22:26 → ENRESERV 22:52
PROVIDERS: ADMIT Hospitalist; ATTEND Internal Medicine Sports Medicine
DX: D73.5 Infarction of spleen (principal); C83.00 Small cell B-cell lymphoma, unspecified site; E78.5 Hyperlipidemia, unspecified; K21.9 Gastro-esophageal reflux disease without esophagitis; Z79.01 Long term (current) use of anticoagulants; Z79.899 Other long term (current) drug therapy; Z88.8 Allergy status to other drugs, medicaments and biological substances

== ENCOUNTER 2017-12-26 11:37 | Inpatient (IN) | payer BC, OTHER ==
[~2017-12-26] VITALS: Ht 162.6 cm; Wt 62.3 kg
[~2017-12-26 11:37] MED LIST changes: -ASPI1CHW12 PO; -BUME1TAB PO; +ONDA4TAB46 PO; +OXYC-609 PO; +POLY335019 PO; +PRD20 PO
[2017-12-26] MEDS: ACETAMINOPHEN 325 MG TAB PO SCH (13:00)
[2017-12-26] MEDS ORDERED: OXYCODONE HCL IR 5 MG TAB (IMMEDIATE RELEASE) PO PRN (13:00)
[2017-12-26] MEDS ORDERED: ONDANSETRON 4 MG TAB PO PRN (13:00)
[2017-12-26] MEDS ORDERED: MoRPHine SULFATE 4 MG/ML 1 ML CARP\\VIAL ONE (13:15)
[2017-12-26] MEDS ORDERED: ONDANSETRON INJ 2 MG/ML 2 ML VIAL ONE (13:16)
--- NOTE | 2017-12-26 13:17 | Oncology Consultation ---
Oncology/Heme Consultation Date of Consultation: Dec 26, 2017. Attending Physician: Guy Treviño MD Reason for Consultation: Ms. Max is a 72-year-old female with a history of CLL with deletion of 17p History of Present Illness Ms. Max was hospitalized 2 weeks ago with abdominal pain and was found to have progression of her CLL. We first met Ms. Max in April of last year. At that time she presented with an edematous right leg. An abdominal CT which show bulky intra-abdominal adenopathy. She also had prominent axillary lymph nodes with a PET CT scan that demonstrated disease in a number of areas. Flow cytometric studies would demonstrate that this lymphoma unfortunately demonstrated a loss of 17 p as well as 11 q. all predictive of a fairly aggressive course. She was begun on oral improved workup. She would develop a rash while on this medicine as well as allopurinol. The rash was felt to be secondary to allopurinol. Follow-up scans in September of this year demonstrated a very nice response but more recently her disease has progressed and she is now off improved workup. We had anticipated treatment then with a BCL-2 inhibitor named venetoclax. We have been waiting for this medicine and it just arrived today. This is an oral medicine. She presented to the clinic today for treatment. It was clear with a more recent visit in our clinic that her disease had even progressed more with a spleen that is grown quite large. Her spleen on palpation today is down to the pelvis and does take up a fair amount of her abdominal area. She does complain also of abdominal pain. We would like to begin the venetoclax. The patient is found to be mildly hyperuricemic at this time. She is at fairly high risk for developing tumor lysis once this oral medicine is started. Again she has developed worsening pain and within the abdomen and a decreasing performance status. She denies any fever or chills. She denies significant nausea or vomiting. Her performance status would be easily graded at an ECOG 3.0 now. Past Medical/Surgical History Medical Problems: (1) Lymphadenopathy Status: Acute (2) Metastatic disease Status: Acute (3) Splenic infarct Status: Acute (4) Swelling of right extremity Status: Acute Family History Hypertension Social History Smoking Status: Never Smoker Drug Use: none Marital Status: single Housing Status: lives alone Occupation Status: retired Allergies Coded Allergies: Allopurinol (Verified Allergy, Unknown, rash, 12/07/17) Home Medications Scheduled Acetaminophen (Tylenol), 650 MG PO Q2D Cholecalciferol (Vitamin D 1000 Unit), 2,000 INTER.UNIT PO DAILY Escitalopram Oxalate (Lexapro), 5 MG PO DAILY Pantoprazole (Protonix), 40 MG PO DAILY Polyethylene Glycol 3350 (Miralax), 17 GM PO DAILY Prednisone (Prednisone), 40 MG PO DAILY Simvastatin (Zocor), 40 MG PO QPM Scheduled PRN Naproxen (Naprosyn), 500 MG PO BID PRN for Pain Ondansetron Hcl (Zofran), 4 MG PO Q6 PRN for Nausea Oxycodone HCl (Oxycodone HCl), 1-2 TAB PO Q6H PRN for Pain Current Inpatient Medications Current Inpatient Medications Medications (Trade) Dose Ordered Sig/Lex Route Start Time Stop Time Status Last Admin Dose Admin Acetaminophen (Tylenol Tab) 650 mg Q2D PO 12/26/17 13:00 01/25/18 12:59 UNV Escitalopram Oxalate (Lexapro Tab) 5 mg DAILY PO 12/27/17 08:00 01/26/18 07:59 UNV Ondansetron HCl (Zofran Tab) 4 mg Q6 PRN PO 12/26/17 13:00 01/25/18 12:59 UNV Prednisone (PredniSONE TAB) 40 mg DAILY PO 12/27/17 08:00 01/26/18 07:59 UNV Simvastatin (Zocor Tab) 40 mg QPM PO 12/26/17 21:00 01/25/18 20:59 UNV Non-Formulary Medication (Pantoprazole (Protonix)) 40 mg DAILY PO 12/27/17 08:00 01/26/18 07:59 UNV Non-Formulary Medication (Polyethylene Glycol 3350 (Miralax)) 17 gm DAILY PO 12/27/17 08:00 01/26/18 07:59 UNV Oxycodone HCl (Roxicodone Immediate Rel Tab) 5 mg Q4H PRN PO 12/26/17 13:00 01/09/18 12:59 UNV Sodium Chloride 1,000 ml @ 80 mls/hr [id number] IV 12/26/17 13:00 01/25/18 12:59 UNV Review of Systems Constitutional: Negative for weight loss, positive for night sweats, no fever Eyes: Negative for event change of vision ENT: Negative for epistaxis, nasal discharge, sore throat, or deafness Cardiovascular: Negative for chest pain, palpitations, dizziness, diaphoresis Respiratory: Negative for new or worsenuing shortness of breath,hemoptysis, or purulent cough Gastrointestinal: Negative for diarrhea, hematemesis, melena, nausea, vomiting, does have abdominal pain primarily left abdomenover splenic area. Genitourinary: Negative for urinary frequency, hematuria, or dysuria Neurological: Negative for weakness, seizure activity, headache, or dizziness Lymphatic/Hematologic: Negative for petechiae, bleeding or new adenopathy Musculoskeletal: Negative for new joint or back pain Allergic/Immunologic: Negative for unusual rash or pruritis. Physical Exam Constitutional: vitals are stable. Eyes: Eyes are WILLY EOMI without conjuctival erythema or icterus. ENT: External examination was negative for masses. Neck: Negative for masses or palpable thyromegaly Respiratory: Lung sounds were generally clear bilaterally Cardiovascular: Heart was RRR without significant murmur, gallops aoe rubs Gastrointestinal: Palpation of the abdomen shows generalized fullness presumably of liver and spleen bowel sounds are normal to decrease Lymphatic system: There is now palpable bilateral axillary adenopathy as well as some inguinal adenopathy particularly on the right Musculoskeletal System: The musculoskeletal system seemed concordant with age. Skin: The skin was negative for jaundice. Neurologic exam: The exam was negative for any focal findings. Deep tendon reflexes were equal and symmetrical. Psychiatric exam: Was essentially negative with normal mood and effect. Breast exam: not done Assessment & Plan marked progression of poor prognostic CLL with deletion to p17. Laboratory was done while she was in our clinic. Hemoglobin is acceptable platelet count of 56 ,000 overall white cell numbers 22,000 with about 40-50% lymphocytes. General chemistries show creatinine 1.2 uric acid is mildly elevated at 9.2 LDH is now over thousand. We would like to eventually begin venetoclax. This is a BCL-2 inhibitor that is just been recently approved for treatment of patients with this condition. The administration of the drug is a ramping up of the drug that is given as a daily dose. The dosing begins to 20 mg a day for 1 week followed by 50 mg a day for 1 week followed by 100 mg a day for 1 week then 200 mg a day for 1 week and then finally 400 mg a day. She just received the "starter pack" of the above drug. Ms Max is of fairly high risk for tumor lysis syndrome. She has an allergy to allopurinol. This leaves us only with rasburicase being able to control her uric acid. I would suggest today that IV hydration occur and continue throughout the hospitalization. Perhaps CT scans of the chest abdomen and pelvis should be updated as a new baseline in preparation for the therapy without IV contrast (I will order). Tomorrow then the rasburicase which the pharmacy is now gathering can be given at 0.2 mg/kg IV. This is usually administered over a half hour. This would then be followed by the 20 mg dose of venetoclax that the patient has. Again the venetoclax will continue daily. Blood work will be done daily to include uric acid. Please consult nephrology. I spoke briefly with Dr. Oliver about the patient. Hopefully then once stabilized and on her medicine we can continue this treatment as an outpatient. I should note that I earlier today I spoke with the patient about her resuscitation her wishes and regard to resuscitation at this juncture to she does not wish to be resuscitated.
[2017-12-26] MEDS: SODIUM CHLORIDE 0.9% 1000ML 1,000 ML IV SCH (13:25)
[2017-12-26] MEDS ORDERED: POLYETHYLENE (MIRALAX) 17 GM PACK PO PRN (13:30)
[2017-12-26] MEDS ORDERED: ONDANSETRON INJ 2 MG/ML 2 ML VIAL IV PRN (13:30)
[2017-12-26] MEDS ORDERED: ACETAMINOPHEN 325 MG TAB PO PRN (13:30)
--- NOTE | 2017-12-26 13:38 | History and Physical ---
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 She has been followed by Dr. Cornell as an outpatient, and he has recommended that she be admitted for close following. We will also consult nephrology, Dr Quinn for mildly elevated Creatinine at 1.2 and uric acid which is also slightly elevated at 9.2. LDH is also significantly elevated 1201. The patient was seen and examined this afternoon , she reports her pain is slightly improved and that her main complaint currently is nausea. Pt notes having a fullness/tightness in her abdomen which started around the 2nd week of November and has just continued to worsen. 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 She has been nauseous for about 2- 3 days now and was taking zofran at home however was not relieving her symptoms. She has been tolerating soups and fluids. Pt notes her bowels are moving yet urine looks slightly darkened. She denies any other acute complaints. Past Medical/Surgical History Medical Problems: (1) Abdominal pain (2) CLL (chronic lymphocytic leukemia) (3) Dehydration (4) S/P hernia repair Family History Hypertension Social History Smoking Status: Never Smoker Drug Use: none Marital Status: single Occupational Status: retired Immunizations History of Influenza Vaccine: Unknown History of Tetanus Vaccine?: Unknown History of Pneumococcal: Unknown History of Hepatitis B Vaccine: Unknown Allergies Coded Allergies: Allopurinol (Verified Allergy, Unknown, rash, 12/07/17) Home Medications Scheduled Acetaminophen (Tylenol), 650 MG PO Q2D Cholecalciferol (Vitamin D 1000 Unit), 2,000 INTER.UNIT PO DAILY Escitalopram Oxalate (Lexapro), 5 MG PO DAILY Pantoprazole (Protonix), 40 MG PO DAILY Polyethylene Glycol 3350 (Miralax), 17 GM PO DAILY Prednisone (Prednisone), 40 MG PO DAILY Simvastatin (Zocor), 40 MG PO QPM Scheduled PRN Naproxen (Naprosyn), 500 MG PO BID PRN for Pain Ondansetron Hcl (Zofran), 4 MG PO Q6 PRN for Nausea Oxycodone HCl (Oxycodone HCl), 1-2 TAB PO Q6H PRN for Pain Review of Systems Constitutional: + fatigue, No fever, No chills, No sweats, No weakness Eyes: No redness, No diplopia ENT: + problem reported (Sensation of food sticking in epigastric region after eating a meal), No trouble swallowing Respiratory: No cough, No sputum, No shortness of breath, No dyspnea on exertion Cardiovascular: No chest pain, No edema Abdomen: + pain, + nausea, No vomiting, No diarrhea, No constipation, No GI bleeding Musculoskeletal: No swelling, No calf pain Genitourinary - Female: No dysuria Neurologic: No numbness/tingling Psychiatric: No depression symptoms, No anxiety Endocrine: No fatigue Integumentary: No rash, No itch Physical Exam General Appearance: WD/WN, no apparent distress, + thin Head: normocephalic, atraumatic Eyes: PERRL, EOMI ENT: hearing grossly normal, pharynx normal Neck: supple, no JVD Respiratory/Chest: no respiratory distress, no accessory muscle use, + pertinent finding (on 2 L via NC, clear breath sounds in upper lobes, slightly diminished at bases bilaterally ) Cardiovascular: regular rate, rhythm, normal peripheral pulses, + systolic murmur Abdomen/GI: normal bowel sounds, non tender, + splenomegaly, + pertinent finding (slightly distended) Back: normal inspection, no CVA tenderness Extremities/Musculoskelatal: normal inspection, no calf tenderness, no pedal edema Neurologic/Psych: alert, normal mood/affect, oriented x 3 Skin: normal color, warm/dry, + diaphoresis Impression Assessment and Plan This is a 72 yo F with PMHx of CLL who presents for IVF hydration and uric acid level monitoring due to risk of tumor lysis syndrome after recent initiation of Venetoclax ( a BCL-2 inhibitor), with an allergy to allopurinol. She has been followed by Dr. Cornell as an outpatient, and he has recommended that she be admitted for close following. We will also consult nephrology, Dr Quinn for mildly elevated Creatinine at 1.2 and uric acid which is also slightly elevated at 9.2. LDH is also significantly elevated. Hx CLL hx spenic infarct/splenomegaly - Admit to med/surg - Will continue on IVFs, follow uric acid, prp for creatinine monitoring - Consult nephrology - Consult heme/onc- Start Venetoclax as per heme onc - Continue pain control with oxycodone as can tolerate oral meds, continue IV morphine sulfate in the interim, continue IV zofran for nausea, prednisone 40 mg daily - Regular diet - PT/OT - pt from home and lives alone - Wean O2 at tolerated, does not normally require supplemental o2. GERD - Cont ppi DVT ppx: Teds, scds CODE STATUS: DNR Disposition: From home, lives alone, planning on moving next week to [place] to be closer to family. I personally interviewed and examined the patient. I agree with history of present illness and physical exam mentioned above, I also performed my own history taking and examination. Past medical history and review of system has been obtained by myself I reviewed all pertinent labs and studies Reviewed current medications I discussed and formulated of the assessment and plan mentioned above. Please refer to the Summary mentioned below. 72-year-old female with CLL who started a new B cell 2 inhibitor and due to allergy to allopurinol, she did not take any allopurinol. Unfortunately patient started having early tumor lysis syndrome, uric acid level is 9.2, creatinine is mildly elevated from baseline 1.2. Dr. Cornell wanted the patient monitored and well-hydrated. Patient has a distended painful abdomen, large hepatosplenomegaly, multiple splenic masses with possible splenic infarct. General Appearance: not in acute distress Eyes: normal Sclerae, extraocular muscle intact ENT: hearing grossly normal Neck: supple Respiratory/Chest: normal air entry bilateral ,no respiratory distress, no accessory muscle use Cardiovascular: regular rate, rhythm, no murmur Abdomen: Distended, tender, hepatosplenomegaly. Extremities: no edema musculoskeletal: no significant swelling or inflammation in any joint Neurologic/Psychiatric: Awake alert oriented times place and person moves all extremities sensation intact cranial nerves II-12 appear to be intact Skin: normal color, warm/dry, no rash Guy Hernandez MD, [facility] Resuscitation Status VTE Prophylaxis Will order VTE Prophylaxis: Yes
[2017-12-26 13:40] VITALS: BP 142/73; PULSE 102; TEMP 36.6; O2SAT 97; BMI 22.1
[2017-12-26 14:46] VITALS: BP 133/73; PULSE 93; TEMP 36.8; O2SAT 96
[2017-12-26 16:00] VITALS: O2SAT 96
[2017-12-26] MEDS: MoRPHine SULFATE 4 MG/ML 1 ML CARP\\VIAL IV PRN ×2 (16:14→19:59)
--- NOTE | 2017-12-26 17:37 | Nephrology Consultation ---
Nephrology Consultation Date & Providers Date of Consultation: Dec 26, 2017. Primary Care Provider: Tammie Vázquez DO Referring Provider: Reason for Consultation Anticipated TLS History of Present Illness Ms. Farida Max is a 72-year-old female with CLL with deletion of 17p. She was diagnosed approximately 2 years ago. She has suffered with significant adenopathy and an aggressive lymphoma. Initial treatment was started shortly after diagnosis with Imbruvica. Farida tolerated the treatment well. She developed hyperuricemia without gout or TLS. She generalized a generalized skin rash with allopurinol at that time. Follow up scans in September of 2017 demonstrated good response but unfortunately there has been recent progression. Farida reports some depression related to the diagnosis. She is treating this with Lexapro. She reports some decline in activity tolerance of the past few months. She has abdominal distention and reduced appetite. She has noticed some slowly progressive weight loss. Overall, she reports good activity tolerance and quality of life. She is mildly hyperuricemic. Creatinine is slightly elevated at 1.2 mg/dL. She has a mild asymptomatic hyponatremia. She reports poor fluid intake. She denies any diarrhea. She was admitted for close observation while starting treatment a BCL-2 inhibitor (venetoclax). She denies any fevers or chills. Past Medical/Surgical History Medical: -- CLL -- Depressive disorder -- Dyslipidemia Surgical: -- Hernia repair Allergies Coded Allergies: Allopurinol (Verified Allergy, Unknown, rash, 12/07/17) Inpatient Medications Current Inpatient Medications Medications (Trade) Dose Ordered Sig/Lex Route Start Time Stop Time Status Last Admin Dose Admin Acetaminophen (Tylenol Tab) 650 mg Q2D@0900 PO 12/26/17 13:00 01/25/18 12:59 Escitalopram Oxalate (Lexapro Tab) 5 mg DAILY PO 12/27/17 08:00 01/26/18 07:59 Ondansetron HCl (Zofran Tab) 4 mg Q6 PRN PO 12/26/17 13:00 01/25/18 12:59 Prednisone (PredniSONE TAB) 40 mg DAILY PO 12/27/17 08:00 01/26/18 07:59 Simvastatin (Zocor Tab) 40 mg QPM PO 12/26/17 21:00 01/25/18 20:59 Pantoprazole Sodium (Protonix Tab) 40 mg DAILY PO 12/27/17 08:00 01/26/18 07:59 Polyethylene (Miralax Powder Packet) 17 gm DAILY PO 12/27/17 08:00 01/26/18 07:59 Oxycodone HCl (Roxicodone Immediate Rel Tab) 5 mg Q4H PRN PO 12/26/17 13:00 01/09/18 12:59 Sodium Chloride 1,000 ml @ 80 mls/hr [id number] IV 12/26/17 13:00 01/25/18 12:59 12/26/17 13:25 80 MLS/HR Ondansetron HCl (Zofran Inj) 4 mg Q6H PRN IV 12/26/17 13:15 01/25/18 13:14 Morphine Sulfate (MoRPHine SULFATE INJ) 4 mg Q2H PRN IV 12/26/17 13:15 01/09/18 13:14 12/26/17 16:14 4 MG Acetaminophen (Tylenol Tab) 650 mg Q4H PRN PO 12/26/17 13:30 01/25/18 13:29 Polyethylene (Miralax Powder Packet) 17 gm DAILY PRN PO 12/26/17 13:30 01/25/18 13:29 Rasburicase 12 mg/ Sodium Chloride 50 ml @ 100 mls/hr DAILY@1600 IV 12/27/17 16:00 12/29/17 20:00 Non-Formulary Medication (Non-Formulary Patient'S Own Med) 1 ea DAILY@1600 PO 12/27/17 16:00 01/02/18 16:01 Family History Hypertension Social History Smoking Status: Never Smoker Drug Use: none Marital Status: single Occupation: retired Review of Systems A complete review of systems was performed. Pertinent positives are noted above. All other systems are negative. Physical Exam Date Time Temp Pulse Resp B/P (MAP) Pulse Ox O2 Delivery O2 Flow Rate FiO2 12/26/17 14:46 36.8 93 18 133/73 (93) 96 12/26/17 13:40 36.6 102 18 142/73 97 Room Air General Appearance: no apparent distress, + thin Head: normocephalic, atraumatic Eyes: normal inspection, sclerae normal ENT: normal ENT inspection, pharynx normal Neck: supple, no JVD Respiratory/Chest: lungs clear, no respiratory distress, no accessory muscle use, + rales (few basilar) Cardiovascular: regular rate, rhythm, no gallop Abdomen/GI: + distended, + splenomegaly (firm, non tender), + pertinent finding Back: no CVA tenderness Extremities/Musculoskelatal: normal inspection, no pedal edema Neurologic/Psych: alert, normal mood/affect Impression (1) CLL (chronic lymphocytic leukemia) (2) Dehydration Farida is a 72-year-old female with aggressive CLL. She has significant adenopathy and splenomegaly. Disease has recently progressed following prior treatment with Ibruvica. She was admitted to start treatment with venetoclax. She is at high risk for TLS. She appears volume depleted at this time. Appetite is poor. She denies diarrhea. Laboratory studies are consistent with this. Metabolic profile will be monitored closely. IV hydration will be provided. The patient has a history of hyperuricemia. She has an allergy (skin rash) to allopurinol. Recommendations -- 0.9% saline @ 80 ml/hr -- Check renal profile with magnesium, phosphorus, and uric acid tomorrow AM -- Monitor labs q 8 hours during treatment -- Document I/O's and maintain UOP average >120 ml/hr -- Rasburicase has been requested from the pharmacy to be provided PRN
--- NOTE | 2017-12-26 18:00 | DIAGNOSTIC IMAGING REPORT ---
(CHEST) THORAX WITHOUT CT DOSE: HISTORY: Lymphoma compare with prior scans hx of lymphoma TECHNIQUE: Multiaxial CT images of the chest were performed without contrast. A dose lowering technique was utilized adhering to the principles of ALARA. COMPARISON: 12/08/2017 FINDINGS: ] Note is increased to 1.3 cm from 1.0 cm on the prior study. Interval increase in size of a high left axillary node currently measuring 1.8 cm increased from 1.4 cm. Additional axillary adenopathy smaller in dimension but nevertheless somewhat increased in prominence in the prior study. Left pleural effusion similar. Right pleural effusion has resolved. Mid mediastinal nodes are slightly increased in the prior exam with maximum dimensions currently 9 an 8 mm in the pretracheal position. Progressive superior mediastinal and retrosternal thiago change. Hilar regions do not suggest significant and/or bulky adenopathy. Unchanging atelectatic change right base. Partial left lower lobe atelectatic change perhaps slightly improved left base. Slightly progressive splenomegaly. Several upper abdominal Nodes. No significant esophageal distention IMPRESSION: 1. Progressive disease throughout the chest. 2. Moderately progressive adenopathy within the axillary regions bilaterally, mediastinal regions, with an increased volume of the spleen. 3. Improved right pleural effusion with an unchanging left effusion and left basilar atelectatic change. The above report was generated using voice recognition software. It may contain grammatical, syntax or spelling errors. Electronically signed by: Tomi Ortega M.D. 12/26/2017 5:59 PM Dictated Date/Time: 12/26/2017 5:49 PM
--- NOTE | 2017-12-26 18:14 | DIAGNOSTIC IMAGING REPORT ---
CT SCAN OF THE ABDOMEN AND PELVIS WITHOUT IV CONTRAST CLINICAL HISTORY: Lymphoma. COMPARISON STUDY: Abdominal CT dated 12/07/2017. TECHNIQUE: CT scan of the abdomen and pelvis is performed from the lung bases to the proximal femora. Images are reviewed in the axial, sagittal, and coronal planes. IV contrast was not administered for this examination. Note that the examination is suboptimal without oral and IV contrast. A dose lowering technique was utilized adhering to the principles of ALARA. CT DOSE: 487.44 mGy.cm FINDINGS: Lung bases: The heart is normal in size and without pericardial effusion. The coronary arteries are densely calcified. There is a small left pleural effusion with associated atelectasis. There are segmental atelectasis at the right lung base with elevation of the right hemidiaphragm. No airspace consolidation is seen typical for pneumonia. Liver: The unenhanced liver is markedly enlarged, measuring 26.3 cm in length. The liver is normal in contour and attenuation. There is no intrahepatic biliary ductal dilatation. Gallbladder: Unremarkable. Spleen: The spleen is markedly enlarged, measuring 22 cm in length (previously measuring 19.6 cm in length). A focal low-attenuation focus is seen in the posterior aspect of the spleen on image #173 and measures up to 4 cm. Pancreas: The unenhanced pancreas is atrophic and grossly unremarkable. Adrenal glands: Unremarkable. Kidneys: The unenhanced kidneys are atrophic without hydronephrosis. There are no renal calculi identified. There is no evidence of contour deforming renal mass lesion. Abdominal vasculature: The abdominal aorta is normal in course and caliber noting mild atherosclerotic calcification. Bowel: There are scattered colonic diverticula without CT evidence of acute diverticulitis. No bowel obstruction is seen. The appendix is well-visualized and normal. Peritoneum: There is no intraperitoneal free air. There is trace pelvic ascites. Lymphadenopathy: There is retroperitoneal, iliac chain, and pelvic sidewall adenopathy. This has modestly progressed from 12/07/2017. A left periaortic node on image #204 measures 3.3 x 2.7 cm (previously measuring up to 3.0 cm). A right pelvic sidewall node on image #335 measures 4.1 x 2 point centimeter (previously measuring 3.7 x 2.1 cm). Mildly enlarged right inguinal nodes measure up to 1.9 cm in length. Pelvic viscera: The bladder, uterus, and adnexa are normal as visualized. Skeletal structures: The skeletal structures are osteopenic. Small hemangiomas are noted in the bodies of T11 and L3. No lytic or blastic lesions are seen. Soft tissues: There is mild body wall edema. IMPRESSION: 1. Marked hepatosplenomegaly. This has increased from 12/07/2017. 2. Retroperitoneal, iliac chain, pelvic sidewall, and right inguinal lymphadenopathy have modestly progressed from 12/07/2017. 3. Splenic hypodensities may represent splenic masses and/or small splenic infarcts. 4. There is trace abdominopelvic ascites. 5. A small left pleural effusion is similar to previous. 6. Additional findings as above. Electronically signed by: Winston Correa M.D. 12/26/2017 6:13 PM Dictated Date/Time: 12/26/2017 6:03 PM
[2017-12-26] MEDS: ONDANSETRON INJ 2 MG/ML 2 ML VIAL IV PRN (19:59)
[2017-12-26 20:06] VITALS: BP 115/68; PULSE 91; TEMP 36.7; O2SAT 94
[2017-12-26] MEDS: SIMVASTATIN 40 MG TAB PO SCH (20:51)
[2017-12-27] VITALS (7 sets, daily range): BP systolic 130–148; BP diastolic 63–78; PULSE 93–106; TEMP 36.3–37; O2SAT 93–98; Ht 162.6 cm; Wt 62.3 kg
[2017-12-27] MEDS: SODIUM CHLORIDE 0.9% 1000ML 1,000 ML IV SCH ×3 (04:12→23:37)
[2017-12-27 05:41] LABS: MEAN CORPUSCULAR HGB CONC 32.9 g/dl (32-36)
[2017-12-27 06:48] LABS: ALBUMIN 2.6 gm/dl (3.4-5.0); CALCIUM 8.7 mg/dl (8.5-10.1); CREATININE 0.91 mg/dl (0.60-1.20); PHOSPHORUS 2.7 mg/dl (2.5-4.9); POTASSIUM 4.5 mmol/L (3.5-5.1); TOTAL PROTEIN 5.6 gm/dl (6.4-8.2); URIC ACID 10.3 mg/dl (2.6-7.2)
[2017-12-27 07:17] LABS: HEMATOCRIT 31.6 % (37-47); HEMOGLOBIN 10.4 g/dL (12.0-16.0); MEAN CELL VOLUME 78.6 fL (80-100); MEAN CORPUSCULAR HEMOGLOBIN 25.9 pg (25-34); MEAN PLATELET VOLUME 9.4 fL (7.4-10.4); NUCLEATED RED BLOOD CELL ABS 2.54 K/uL (0-0); PLATELET COUNT 44 K/uL (130-400); RED CELL DISTRIBUTION WIDTH CV 16.7 % (11.5-14.5); RED CELL DISTRIBUTION WIDTH SD 47.9 fL (36.4-46.3); WHITE BLOOD COUNT 14.38 K/uL (4.8-10.8)
[2017-12-27] MEDS: ONDANSETRON INJ 2 MG/ML 2 ML VIAL IV PRN ×3 (07:51→22:37)
[2017-12-27] MEDS: ESCITALOPRAM OXALATE 10 MG TAB PO SCH (07:52)
[2017-12-27] MEDS: POLYETHYLENE (MIRALAX) 17 GM PACK PO SCH (07:53)
[2017-12-27] MEDS: PANTOprazole SOD 40 MG TAB PO SCH (07:53)
[2017-12-27] MEDS: MoRPHine SULFATE 4 MG/ML 1 ML CARP\\VIAL IV PRN ×3 (08:49→23:36)
--- NOTE | 2017-12-27 11:12 | Hematology/Oncology Prog Note ---
Hematology/Onc Progress Note Date of Service Dec 27, 2017. Diagnoses Progressive CLL deletion 17p Hyperuricemia Medications Medications Administered Medications (Trade) Dose Ordered Sig/Lex Route Start Time Stop Time Status Last Admin Dose Admin Escitalopram Oxalate (Lexapro Tab) 5 mg DAILY PO 12/27/17 08:00 01/26/18 07:59 12/27/17 07:52 5 MG Prednisone (PredniSONE TAB) 40 mg DAILY PO 12/27/17 08:00 01/26/18 07:59 12/27/17 07:53 20 MG Pantoprazole Sodium (Protonix Tab) 40 mg DAILY PO 12/27/17 08:00 01/26/18 07:59 12/27/17 07:53 40 MG Sodium Chloride 1,000 ml @ 80 mls/hr [id number] IV 12/26/17 13:00 01/25/18 12:59 12/27/17 04:12 80 MLS/HR Ondansetron HCl (Zofran Inj) 4 mg Q6H PRN IV 12/26/17 13:15 01/25/18 13:14 12/27/17 07:51 4 MG Morphine Sulfate (MoRPHine SULFATE INJ) 4 mg Q2H PRN IV 12/26/17 13:15 01/09/18 13:14 12/27/17 08:49 4 MG Morphine Sulfate (MoRPHine SULFATE INJ) 4 mg STK-MED ONCE .ROUTE 12/26/17 13:15 12/26/17 13:16 DC 12/26/17 13:20 4 MG Ondansetron HCl (Zofran Inj) 4 mg STK-MED ONCE .ROUTE 12/26/17 13:16 12/26/17 13:17 DC 12/26/17 13:20 4 MG Subjective Continues to feel weak. Afebrile. CT scans demonstrate progression of disease. Has some mild nausea. Uric acid remains elevated today. Creatinine is better hydration continues Review of Systems: Constitutional: Negative for fever Eyes: Negative for event change of vision ENT: Negative for epistaxis, nasal discharge, sore throat, or deafness Cardiovascular: Negative for chest pain, palpitations, dizziness, diaphoresis Respiratory: Negative for new shortness of breath,hemoptysis, or purulent cough Gastrointestinal: Negative for diarrhea, hematemesis, melena, does have some mild nausea Integumentary (skin): Negative for rash or jaundice discoloration Genitourinary: Negative for urinary frequency, hematuria, or dysuria Neurological: Negative for weakness, seizure activity, headache, or dizziness Lymphatic/Hematologic: Negative for petechiae, bleeding or new adenopathy Musculoskeletal: Negative for new joint or back pain Allergic/Immunologic: Negative for unusual rash or pruritis. Vital Signs Vital Signs Past 12 Hours Date Time Temp Pulse Resp B/P (MAP) Pulse Ox O2 Delivery O2 Flow Rate FiO2 12/27/17 09:48 Room Air 2.0 Nasal Cannula 12/27/17 07:50 36.5 101 20 143/74 (97) 98 Nasal Cannula 2.0 12/27/17 04:55 37.0 97 18 137/78 (97) 98 Nasal Cannula 2.0 12/27/17 00:03 36.8 106 20 130/71 (90) 93 Room Air 12/27/17 00:00 Nasal Cannula 2.0 Physical Exam Constitutional: vitals are stable. Alert and oriented Eyes: Eyes are WILLY EOMI without conjuctival erythema or icterus. ENT: External examination was negative for masses. Neck: Negative for masses or palpable thyromegaly Respiratory: Lung sounds were generally clear bilaterally Cardiovascular: Heart was RRR without significant murmur, gallops aoe rubs Gastrointestinal: Abdomen has a general full feeling secondary to hepatosplenomegaly Lymphatic system: Palpable 1-2 cm bilateral axillary adenopathy Musculoskeletal System: The musculoskeletal system seemed concordant with age. Skin: The skin was negative for jaundice. Neurologic exam: The exam was negative for any focal findings. Deep tendon reflexes were equal and symmetrical. Psychiatric exam: Was essentially negative with normal mood and effect. Breast exam: Not done today Extremities; Negative for tenderness or edema. Laboratory Last 24 Hours Test 12/27/17 05:18 12/27/17 07:08 12/27/17 07:51 White Blood Count 14.38 K/uL Red Blood Count 4.02 M/uL Hemoglobin 10.4 g/dL Hematocrit 31.6 % Mean Corpuscular Volume 78.6 fL Mean Corpuscular Hemoglobin 25.9 pg Mean Corpuscular Hemoglobin Concent 32.9 g/dl Platelet Count 44 K/uL Mean Platelet Volume 9.4 fL RDW Standard Deviation 47.9 fL RDW Coefficient of Variation 16.7 % Nucleated RBC Absolute Count (auto) 2.54 K/uL Neutrophils % (Manual) 39.7 % Lymphocytes % (Manual) 18.0 % Variant Lymphocytes % (manual) 29.7 % Monocytes % (Manual) 2.7 % Eosinophils % (Manual) 2.7 % Basophils % (Manual) 0.9 % Metamyelocytes % 3.6 % Myelocytes % 2.7 % Nucleated Red Blood Cells % 17.7 % Neutrophils # (Manual) 5.71 K/uL Total Absolute Neutrophils 5.71 K/uL Lymphocytes # (Manual) 2.59 K/uL Absolute Variant Lymphocytes 4.27 K/uL Total Absolute Lymphocytes 6.86 K/uL Monocytes # (Manual) 0.39 K/uL Eosinophils # (Manual) 0.39 K/uL Basophils # (Manual) 0.13 K/uL Metamyelocytes # 0.52 K/uL Myelocytes # 0.39 K/uL Smudge Cells PRESENT Sodium Level 131 mmol/L Potassium Level 4.5 mmol/L Chloride Level 95 mmol/L Carbon Dioxide Level 22 mmol/L Anion Gap 14.0 mmol/L Blood Urea Nitrogen 14 mg/dl Creatinine 0.91 mg/dl Est Creatinine Clear Calc Drug Dose 47.6 ml/min Estimated GFR () 72.5 Estimated GFR (Non- 62.6 BUN/Creatinine Ratio 14.9 Random Glucose 33 mg/dl Uric Acid 10.3 mg/dl Calcium Level 8.7 mg/dl Phosphorus Level 2.7 mg/dl Magnesium Level 1.8 mg/dl Total Bilirubin 3.2 mg/dl Direct Bilirubin 2.2 mg/dl Aspartate Amino Transf (AST/SGOT) 103 U/L Alanine Aminotransferase (ALT/SGPT) 34 U/L Alkaline Phosphatase 285 U/L Total Protein 5.6 gm/dl Albumin 2.6 gm/dl Bedside Glucose 49 mg/dl 74 mg/dl Assessment & Plan Markedly progressive lymphoma. It is time to begin venetoclax. She remains hyperuricemic. She has a skin allergy to allopurinol. Dr. Mcgovern I believe has ordered the rasburicase. That should be given first followed by now 20 mg of oral venetoclax. The venetoclax will be repeated daily (20 mg a da) for 1 week and then next Friday or Friday the dose will be increased to 50 mg a day. This was reviewed with the nursing staff. We are all concerned since she is at moderate risk at least for developing significant tumor lysis. Blood work will be done frequently, monitoring her uric acid as well as creatinine and general chemistries and cbc/diff. She is thrombocytopenic at the outset with no overt bleeding. The patient has been fully informed of the drug and it's potential side effects.
--- NOTE | 2017-12-27 11:45 | Nephrology Progress Note ---
Nephrology Progress Note Date of Service Dec 27, 2017. Chief Complaint Anticipated TLS Subjective Mrs. Max was seen & examined in her hospital room this morning. She is uncomfortable due to her splenomegally. She currently denies fever or angina. She is tolerating IV hydration without dyspnea or peripheral edema. Review of Systems Constitutional: No fever Cardiovascular: No chest pain Abdomen: No vomiting Extremities: No leg edema A complete review of systems was performed. Pertinent positives are noted above. All other systems are negative. Vital Signs Last 8 Hrs Date Time Temp Pulse Resp B/P (MAP) Pulse Ox O2 Delivery O2 Flow Rate FiO2 12/27/17 11:17 36.8 98 18 146/78 (100) 93 12/27/17 09:48 Room Air 2.0 Nasal Cannula 12/27/17 07:50 36.5 101 20 143/74 (97) 98 Nasal Cannula 2.0 12/27/17 04:55 37.0 97 18 137/78 (97) 98 Nasal Cannula 2.0 Last Recorded Weight Weight (Kilograms): 58.900 Physical Exam General Appearance: no apparent distress Head: normocephalic, atraumatic Eyes: PERRL, EOMI Neck: no adenopathy Respiratory/Chest: lungs clear, no respiratory distress Cardiovascular: regular rate, rhythm Back: no CVA tenderness Abdomen/GI: non tender, + splenomegaly Extremities/Musculoskelatal: no calf tenderness, no pedal edema Neurologic/Psych: alert, oriented x 3 Family History Hypertension Social History Smoking Status: Never smoker Drug Use: none Marital Status: single Occupation: retired Laboratory Results Past 24 Hours 12/27/17 05:18 Red Blood Count 4.02, Mean Corpuscular Volume 78.6, Mean Corpuscular Hemoglobin 25.9, Mean Corpuscular Hemoglobin Concent 32.9, Mean Platelet Volume 9.4 12/27/17 05:18 Test 12/27/17 05:18 12/27/17 07:08 12/27/17 07:51 12/27/17 11:26 White Blood Count 14.38 K/uL (4.8-10.8) Red Blood Count 4.02 M/uL (4.2-5.4) Hemoglobin 10.4 g/dL (12.0-16.0) Hematocrit 31.6 % (37-47) Mean Corpuscular Volume 78.6 fL (80-100) Mean Corpuscular Hemoglobin 25.9 pg (25-34) Mean Corpuscular Hemoglobin Concent 32.9 g/dl (32-36) Platelet Count 44 K/uL (130-400) Mean Platelet Volume 9.4 fL (7.4-10.4) RDW Standard Deviation 47.9 fL (36.4-46.3) RDW Coefficient of Variation 16.7 % (11.5-14.5) Nucleated RBC Absolute Count (auto) 2.54 K/uL (0-0) Neutrophils % (Manual) 39.7 % Lymphocytes % (Manual) 18.0 % Variant Lymphocytes % (manual) 29.7 % Monocytes % (Manual) 2.7 % Eosinophils % (Manual) 2.7 % Basophils % (Manual) 0.9 % Metamyelocytes % 3.6 % Myelocytes % 2.7 % Nucleated Red Blood Cells % 17.7 % Neutrophils # (Manual) 5.71 K/uL (1.4-6.5) Total Absolute Neutrophils 5.71 K/uL (1.4-6.5) Lymphocytes # (Manual) 2.59 K/uL (1.2-3.4) Absolute Variant Lymphocytes 4.27 K/uL Total Absolute Lymphocytes 6.86 K/uL (1.2-3.4) Monocytes # (Manual) 0.39 K/uL (0.11-0.59) Eosinophils # (Manual) 0.39 K/uL (0-0.5) Basophils # (Manual) 0.13 K/uL (0-0.2) Metamyelocytes # 0.52 K/uL (0-0) Myelocytes # 0.39 K/uL (0-0) Smudge Cells PRESENT Anion Gap 14.0 mmol/L (3-11) Est Creatinine Clear Calc Drug Dose 47.6 ml/min Estimated GFR () 72.5 Estimated GFR (Non- 62.6 BUN/Creatinine Ratio 14.9 (10-20) Uric Acid 10.3 mg/dl (2.6-7.2) Calcium Level 8.7 mg/dl (8.5-10.1) Phosphorus Level 2.7 mg/dl (2.5-4.9) Magnesium Level 1.8 mg/dl (1.8-2.4) Total Bilirubin 3.2 mg/dl (0.2-1) Direct Bilirubin 2.2 mg/dl (0-0.2) Aspartate Amino Transf (AST/SGOT) 103 U/L (15-37) Alanine Aminotransferase (ALT/SGPT) 34 U/L (12-78) Alkaline Phosphatase 285 U/L (45-117) Total Protein 5.6 gm/dl (6.4-8.2) Albumin 2.6 gm/dl (3.4-5.0) Bedside Glucose 49 mg/dl (70-90) 74 mg/dl (70-90) Allergies Coded Allergies: Allopurinol (Verified Allergy, Unknown, rash, 12/07/17) Medications Current Inpatient Medications Medications (Trade) Dose Ordered Sig/Lex Route Start Time Stop Time Status Last Admin Dose Admin Acetaminophen (Tylenol Tab) 650 mg Q2D@0900 PO 12/26/17 13:00 01/25/18 12:59 Escitalopram Oxalate (Lexapro Tab) 5 mg DAILY PO 12/27/17 08:00 01/26/18 07:59 12/27/17 07:52 5 MG Ondansetron HCl (Zofran Tab) 4 mg Q6 PRN PO 12/26/17 13:00 01/25/18 12:59 Prednisone (PredniSONE TAB) 40 mg DAILY PO 12/27/17 08:00 01/26/18 07:59 12/27/17 07:53 20 MG Simvastatin (Zocor Tab) 40 mg QPM PO 12/26/17 21:00 01/25/18 20:59 Pantoprazole Sodium (Protonix Tab) 40 mg DAILY PO 12/27/17 08:00 01/26/18 07:59 12/27/17 07:53 40 MG Polyethylene (Miralax Powder Packet) 17 gm DAILY PO 12/27/17 08:00 01/26/18 07:59 Oxycodone HCl (Roxicodone Immediate Rel Tab) 5 mg Q4H PRN PO 12/26/17 13:00 01/09/18 12:59 Sodium Chloride 1,000 ml @ 80 mls/hr [id number] IV 12/26/17 13:00 01/25/18 12:59 12/27/17 04:12 80 MLS/HR Ondansetron HCl (Zofran Inj) 4 mg Q6H PRN IV 12/26/17 13:15 01/25/18 13:14 12/27/17 07:51 4 MG Morphine Sulfate (MoRPHine SULFATE INJ) 4 mg Q2H PRN IV 12/26/17 13:15 01/09/18 13:14 12/27/17 08:49 4 MG Acetaminophen (Tylenol Tab) 650 mg Q4H PRN PO 12/26/17 13:30 01/25/18 13:29 Polyethylene (Miralax Powder Packet) 17 gm DAILY PRN PO 12/26/17 13:30 01/25/18 13:29 Rasburicase 12 mg/ Sodium Chloride 50 ml @ 100 mls/hr DAILY@1600 IV 12/27/17 16:00 12/29/17 20:00 Non-Formulary Medication (Non-Formulary Patient'S Own Med) 1 ea DAILY@1600 PO 12/27/17 16:00 01/02/18 16:01 Impression (1) CLL (chronic lymphocytic leukemia) (2) Dehydration Ms. Max is a 72-year-old female with aggressive CLL. She has significant adenopathy and splenomegaly. Disease has recently progressed following prior treatment with Ibruvica. She was admitted to start treatment with Venetoclax. She is at high risk for TLS. The patient has a history of hyperuricemia. She has an allergy (skin rash) to allopurinol. Recommendations -- Continue 0.9% saline @ 100 ml/hr -- Rasburicase scheduled to be administered at 1300 hours today -- Will obtain follow up stat PRP and Uric Acid at 1900 hours today -- Document I/O's and maintain UOP average >120 ml/hr
[2017-12-27 12:38] LABS: INR 1.4 (0.9-1.1); PTT PATIENT 33.7 SECONDS (21.0-31.0)
[2017-12-27] MEDS ORDERED: SODIUM CHLORIDE 0.9% IV SCH ×2 (13:00→16:00)
[2017-12-27] MEDS ORDERED: RASBURICASE IV SCH ×2 (13:00→16:00)
[2017-12-27] MEDS ORDERED: VENETOCLAX PO SCH (16:00)
[2017-12-27] MEDS ORDERED: NURSING VERBAL MED ORDER ONE (16:30)
[2017-12-27] MEDS ORDERED: PRED20TA PO (17:10)
[2017-12-27] MEDS: VENETOCLAX 10 MG PO SCH (17:50)
[2017-12-27 20:03] LABS: CALCIUM 8.5 mg/dl (8.5-10.1); CREATININE 1.43 mg/dl (0.60-1.20); POTASSIUM 4.7 mmol/L (3.5-5.1); URIC ACID 1.7 mg/dl (2.6-7.2)
[2017-12-27] MEDS: SIMVASTATIN 40 MG TAB PO SCH (21:32)
--- NOTE | 2017-12-27 23:30 | Progress Note ---
Subjective Date of Service: Dec 27, 2017. Subjective Pt evaluation today including: conversation w/ patient, physical exam Farida is a pleasant 72 yo female: she currently feels fatigued. She attributes this to her new treatment. She also reports some nausea. In the AM she had some hypoglycema. She reports she has not had a bm for past 4 days. Problem List Medical Problems: (1) Cat bite of hand Status: Acute (2) Cat bite of hand Status: Acute (3) Groin pain Status: Acute (4) Lymphadenopathy Status: Acute (5) Metastatic disease Status: Acute (6) Need for tetanus booster Status: Acute (7) Splenic infarct Status: Acute (8) Swelling of right extremity Status: Acute Review of Systems Constitutional: + weakness, + fatigue Eyes: No worsening of vision ENT: No hearing loss Respiratory: No cough Cardiac: No chest pain Abdomen: + nausea, + vomiting, + constipation Musculoskeletal: + muscle pain Female : No dysuria Neurologic: + weakness, No memory loss Psychiatric: No depression symptoms Heme: No abnormal bleeding/bruising Endo: + fatigue Skin: No rash, No itch All Other Systems: Reviewed and Negative Objective Vital Signs Date Time Temp Pulse Resp B/P (MAP) Pulse Ox O2 Delivery O2 Flow Rate FiO2 12/27/17 23:18 36.3 93 18 148/75 (99) 93 2.0 12/27/17 20:00 36.7 96 20 147/63 (91) 95 2.0 12/27/17 16:47 Room Air 2.0 Nasal Cannula 12/27/17 14:38 36.4 95 18 147/76 (99) 93 12/27/17 11:17 36.8 98 18 146/78 (100) 93 12/27/17 09:48 Room Air 2.0 Nasal Cannula 12/27/17 07:50 36.5 101 20 143/74 (97) 98 Nasal Cannula 2.0 12/27/17 04:55 37.0 97 18 137/78 (97) 98 Nasal Cannula 2.0 12/27/17 00:03 36.8 106 20 130/71 (90) 93 Room Air 12/27/17 00:00 Nasal Cannula 2.0 Physical Exam General Appearance: WD/WN, + mild distress Eyes: normal inspection ENT: normal ENT inspection Neck: supple, no adenopathy Respiratory/Chest: chest non-tender, lungs clear, normal breath sounds Cardiovascular: regular rate, rhythm, no edema Abdomen: normal bowel sounds, no pulsatile mass, + splenomegaly, + pertinent finding (firm abdomen., no rebound or guarding) Extremities: normal range of motion Neurologic/Psychiatric: alert, oriented x 3 Skin: normal color Lymphatic: no adenopathy Laboratory Results Last 24 Hours Test 12/27/17 05:18 12/27/17 07:08 12/27/17 07:51 12/27/17 11:26 White Blood Count 14.38 K/uL Red Blood Count 4.02 M/uL Hemoglobin 10.4 g/dL Hematocrit 31.6 % Mean Corpuscular Volume 78.6 fL Mean Corpuscular Hemoglobin 25.9 pg Mean Corpuscular Hemoglobin Concent 32.9 g/dl Platelet Count 44 K/uL Mean Platelet Volume 9.4 fL RDW Standard Deviation 47.9 fL RDW Coefficient of Variation 16.7 % Nucleated RBC Absolute Count (auto) 2.54 K/uL Neutrophils % (Manual) 39.7 % Lymphocytes % (Manual) 18.0 % Variant Lymphocytes % (manual) 29.7 % Monocytes % (Manual) 2.7 % Eosinophils % (Manual) 2.7 % Basophils % (Manual) 0.9 % Metamyelocytes % 3.6 % Myelocytes % 2.7 % Nucleated Red Blood Cells % 17.7 % Neutrophils # (Manual) 5.71 K/uL Total Absolute Neutrophils 5.71 K/uL Lymphocytes # (Manual) 2.59 K/uL Absolute Variant Lymphocytes 4.27 K/uL Total Absolute Lymphocytes 6.86 K/uL Monocytes # (Manual) 0.39 K/uL Eosinophils # (Manual) 0.39 K/uL Basophils # (Manual) 0.13 K/uL Metamyelocytes # 0.52 K/uL Myelocytes # 0.39 K/uL Smudge Cells PRESENT Sodium Level 131 mmol/L Potassium Level 4.5 mmol/L Chloride Level 95 mmol/L Carbon Dioxide Level 22 mmol/L Anion Gap 14.0 mmol/L Blood Urea Nitrogen 14 mg/dl Creatinine 0.91 mg/dl Est Creatinine Clear Calc Drug Dose 47.6 ml/min Estimated GFR () 72.5 Estimated GFR (Non- 62.6 BUN/Creatinine Ratio 14.9 Random Glucose 33 mg/dl Uric Acid 10.3 mg/dl Calcium Level 8.7 mg/dl Phosphorus Level 2.7 mg/dl Magnesium Level 1.8 mg/dl Total Bilirubin 3.2 mg/dl Direct Bilirubin 2.2 mg/dl Aspartate Amino Transf (AST/SGOT) 103 U/L Alanine Aminotransferase (ALT/SGPT) 34 U/L Alkaline Phosphatase 285 U/L Total Protein 5.6 gm/dl Albumin 2.6 gm/dl Bedside Glucose 49 mg/dl 74 mg/dl Prothrombin Time 14.7 SECONDS Prothromb Time International Ratio 1.4 Activated Partial Thromboplast Time 33.7 SECONDS Partial Thromboplastin Ratio 1.3 Fibrinogen 92 mg/dl Test 12/27/17 19:26 12/27/17 21:31 Sodium Level 130 mmol/L Potassium Level 4.7 mmol/L Chloride Level 95 mmol/L Carbon Dioxide Level 19 mmol/L Anion Gap 16.0 mmol/L Blood Urea Nitrogen 15 mg/dl Creatinine 1.43 mg/dl Est Creatinine Clear Calc Drug Dose 30.3 ml/min Estimated GFR () 42.0 Estimated GFR (Non- 36.2 BUN/Creatinine Ratio 10.5 Random Glucose 97 mg/dl Uric Acid 1.7 mg/dl Calcium Level 8.5 mg/dl Chemistry Specimen Hemolysis Bedside Glucose 87 mg/dl Assessment and Plan This is a 72 yo F with PMHx of CLL who presents for IVF hydration and uric acid level monitoring due to risk of tumor lysis syndrome after recent initiation of Venetoclax ( a BCL-2 inhibitor), with an allergy to allopurinol. She has been followed by Dr. Cornell as an outpatient, and he has recommended that she be admitted for close following. We will also consult nephrology, Dr Quinn for mildly elevated Creatinine at 1.2 and uric acid which is also slightly elevated at 9.2. LDH is also significantly elevated. Hx CLL hx spenic infarct/splenomegaly - Patient admitted to med/surg -Flow cytometric studies would demonstrate that this lymphoma unfortunately demonstrated a loss of 17 p as well as 11 q. all predictive of a fairly aggressive course -There is concern for risk of tumor lysis syndrome, which is reason why patient is here. -Will need to continue to monitor her renal function -Added rasburicase as determined by neprho. -patient also started venetnoclax - Continue pain control with oxycodone as can tolerate oral meds, continue IV morphine sulfate in the interim, continue IV zofran for nausea, prednisone 40 mg daily - Regular diet - PT/OT - pt from home and lives alone - Wean O2 at tolerated, does not normally require supplemental o2. CONSTIPATION Abd. is on the firm side. Patient will try miralax today. If no BM today, will consider lactulose. KUB HYPOGLYCEMIA GERD - Cont ppi DVT ppx: Teds, scds CODE STATUS: DNR
[2017-12-28] VITALS (33 sets, daily range): BP systolic 67–160; BP diastolic 29–98; PULSE 71–108; TEMP 36.4–36.9; O2SAT 86–99
[2017-12-28 06:05] LABS: MEAN CORPUSCULAR HGB CONC 31.5 g/dl (32-36)
[2017-12-28] MEDS: MoRPHine SULFATE 4 MG/ML 1 ML CARP\\VIAL IV PRN ×7 (06:07→23:47)
[2017-12-28 06:15] LABS: HEMATOCRIT 33.3 % (37-47); HEMOGLOBIN 10.5 g/dL (12.0-16.0); MEAN CORPUSCULAR HEMOGLOBIN 25.5 pg (25-34); MEAN PLATELET VOLUME 10.3 fL (7.4-10.4); NUCLEATED RED BLOOD CELL ABS 2.43 K/uL (0-0); PLATELET COUNT 46 K/uL (130-400); RED CELL DISTRIBUTION WIDTH CV 17.6 % (11.5-14.5); RED CELL DISTRIBUTION WIDTH SD 51.5 fL (36.4-46.3); WHITE BLOOD COUNT 19.06 K/uL (4.8-10.8)
[2017-12-28 06:49] LABS: BLOOD UREA NITROGEN 18 mg/dl (7-18); CALCIUM 9.4 mg/dl (8.5-10.1); CARBON DIOXIDE 11 mmol/L (21-32); CREATININE 1.21 mg/dl (0.60-1.20); GLUCOSE 27 mg/dl (70-99); POTASSIUM 4.5 mmol/L (3.5-5.1); SODIUM 130 mmol/L (136-145); URIC ACID < 0.2 mg/dl (2.6-7.2)
[2017-12-28] MEDS ORDERED: DEXTROSE 50% 50 ML SYR ONE ×3 (07:23→16:24)
[2017-12-28] MEDS ORDERED: SODIUM CHLORIDE 0.9% 500ML 500 ML IV ONE (08:30)
[2017-12-28] MEDS: ESCITALOPRAM OXALATE 10 MG TAB PO SCH ×2 (08:33→12:13)
[2017-12-28] MEDS: SODIUM CHLORIDE 0.9% 1000ML 1,000 ML IV SCH (08:33)
[2017-12-28] MEDS: PANTOprazole SOD 40 MG TAB PO SCH ×2 (08:34→12:14)
[2017-12-28] MEDS: ONDANSETRON INJ 2 MG/ML 2 ML VIAL IV PRN ×2 (08:38→14:09)
[2017-12-28] MEDS: POLYETHYLENE (MIRALAX) 17 GM PACK PO SCH (08:38)
[2017-12-28] MEDS: ACETAMINOPHEN 325 MG TAB PO SCH (08:40)
--- NOTE | 2017-12-28 09:08 | Progress Note ---
Subjective Date of Service: Dec 28, 2017. Subjective Pt evaluation today including: conversation w/ patient Patient reports feeling wiped out. She states she has been hallucinating today seing paper towels in the ceiling. She also feels very tired this AM. She states she has not had a BM this AM nor overnight. Problem List Medical Problems: (1) Cat bite of hand Status: Acute (2) Cat bite of hand Status: Acute (3) Groin pain Status: Acute (4) Lymphadenopathy Status: Acute (5) Metastatic disease Status: Acute (6) Need for tetanus booster Status: Acute (7) Splenic infarct Status: Acute (8) Swelling of right extremity Status: Acute Review of Systems Constitutional: + weakness, + fatigue Eyes: No worsening of vision ENT: No hearing loss Respiratory: No cough Cardiac: No chest pain Abdomen: + nausea, + vomiting, + constipation Musculoskeletal: + muscle pain Female : No dysuria Neurologic: + weakness, No memory loss Psychiatric: No depression symptoms Heme: No abnormal bleeding/bruising Endo: + fatigue Skin: No rash, No itch All Other Systems: Reviewed and Negative Medications Current Inpatient Medications Medications (Trade) Dose Ordered Sig/Lex Route Start Time Stop Time Status Last Admin Dose Admin Acetaminophen (Tylenol Tab) 650 mg Q2D@0900 PO 12/26/17 13:00 01/25/18 12:59 Escitalopram Oxalate (Lexapro Tab) 5 mg DAILY PO 12/27/17 08:00 01/26/18 07:59 12/27/17 07:52 5 MG Ondansetron HCl (Zofran Tab) 4 mg Q6 PRN PO 12/26/17 13:00 01/25/18 12:59 Simvastatin (Zocor Tab) 40 mg QPM PO 12/26/17 21:00 01/25/18 20:59 Pantoprazole Sodium (Protonix Tab) 40 mg DAILY PO 12/27/17 08:00 01/26/18 07:59 12/27/17 07:53 40 MG Polyethylene (Miralax Powder Packet) 17 gm DAILY PO 12/27/17 08:00 01/26/18 07:59 Oxycodone HCl (Roxicodone Immediate Rel Tab) 5 mg Q4H PRN PO 12/26/17 13:00 01/09/18 12:59 Sodium Chloride 1,000 ml @ 100 mls/hr Q10H IV 12/26/17 13:00 01/25/18 12:59 12/27/17 23:37 100 MLS/HR Ondansetron HCl (Zofran Inj) 4 mg Q6H PRN IV 12/26/17 13:15 01/25/18 13:14 12/27/17 22:37 4 MG Morphine Sulfate (MoRPHine SULFATE INJ) 4 mg Q2H PRN IV 12/26/17 13:15 01/09/18 13:14 12/28/17 06:07 4 MG Acetaminophen (Tylenol Tab) 650 mg Q4H PRN PO 12/26/17 13:30 01/25/18 13:29 Polyethylene (Miralax Powder Packet) 17 gm DAILY PRN PO 12/26/17 13:30 01/25/18 13:29 12/27/17 17:50 17 GM Rasburicase 12 mg/ Sodium Chloride 50 ml @ 100 mls/hr DAILY@1300 IV 12/27/17 13:00 12/29/17 18:00 12/27/17 13:37 100 MLS/HR Non-Formulary Medication (Non-Formulary Patient'S Own Med) 2 ea DAILY@1700 PO 12/27/17 17:00 01/02/18 17:01 12/27/17 17:50 2 EA Prednisone (PredniSONE TAB) 20 mg DAILY PO 12/28/17 08:00 01/26/18 07:59 Objective Vital Signs Date Time Temp Pulse Resp B/P (MAP) Pulse Ox O2 Delivery O2 Flow Rate FiO2 12/28/17 07:35 36.5 90 18 144/78 (100) 98 12/28/17 04:00 36.9 92 20 139/68 (91) 95 2.0 12/28/17 00:00 Nasal Cannula 2.0 12/27/17 23:18 36.3 93 18 148/75 (99) 93 2.0 12/27/17 20:00 36.7 96 20 147/63 (91) 95 2.0 12/27/17 20:00 Nasal Cannula 2.0 12/27/17 16:47 Room Air 2.0 Nasal Cannula 12/27/17 14:38 36.4 95 18 147/76 (99) 93 12/27/17 11:17 36.8 98 18 146/78 (100) 93 12/27/17 09:48 Room Air 2.0 Nasal Cannula Physical Exam Comments: General Appearance: WD/WN, looks very fatigued. Patient speaks slowly, but makes sense. No aphasia Eyes: normal inspection ENT: normal ENT inspection Neck: supple, no adenopathy Respiratory/Chest: chest non-tender, lungs clear, normal breath sounds Cardiovascular: regular rate, rhythm, no edema Abdomen: normal bowel sounds, no pulsatile mass, + splenomegaly, + pertinent finding (firm abdomen., no rebound or guarding) Extremities: normal range of motion Neurologic/Psychiatric: alert, oriented x 3, equal strength in all extremities. Normal eye movements. Skin: normal color Lymphatic: no adenopathy Laboratory Results Last 24 Hours Test 12/27/17 11:26 12/27/17 19:26 12/27/17 21:31 12/28/17 05:30 Prothrombin Time 14.7 SECONDS Prothromb Time International Ratio 1.4 Activated Partial Thromboplast Time 33.7 SECONDS Partial Thromboplastin Ratio 1.3 Fibrinogen 92 mg/dl Sodium Level 130 mmol/L 130 mmol/L Potassium Level 4.7 mmol/L 4.5 mmol/L Chloride Level 95 mmol/L 95 mmol/L Carbon Dioxide Level 19 mmol/L 11 mmol/L Anion Gap 16.0 mmol/L 24.0 mmol/L Blood Urea Nitrogen 15 mg/dl 18 mg/dl Creatinine 1.43 mg/dl 1.21 mg/dl Est Creatinine Clear Calc Drug Dose 30.3 ml/min 35.8 ml/min Estimated GFR () 42.0 51.4 Estimated GFR (Non- 36.2 44.4 BUN/Creatinine Ratio 10.5 15.2 Random Glucose 97 mg/dl 27 mg/dl Uric Acid 1.7 mg/dl < 0.2 mg/dl Calcium Level 8.5 mg/dl 9.4 mg/dl Chemistry Specimen Hemolysis Bedside Glucose 87 mg/dl White Blood Count 19.06 K/uL Red Blood Count 4.11 M/uL Hemoglobin 10.5 g/dL Hematocrit 33.3 % Mean Corpuscular Volume 81.0 fL Mean Corpuscular Hemoglobin 25.5 pg Mean Corpuscular Hemoglobin Concent 31.5 g/dl Platelet Count 46 K/uL Mean Platelet Volume 10.3 fL RDW Standard Deviation 51.5 fL RDW Coefficient of Variation 17.6 % Nucleated RBC Absolute Count (auto) 2.43 K/uL Neutrophils % (Manual) 34.5 % Lymphocytes % (Manual) 41.0 % Variant Lymphocytes % (manual) 20.0 % Eosinophils % (Manual) 2.7 % Metamyelocytes % 1.8 % Nucleated Red Blood Cells % 12.7 % Neutrophils # (Manual) 6.58 K/uL Total Absolute Neutrophils 6.58 K/uL Lymphocytes # (Manual) 7.81 K/uL Absolute Variant Lymphocytes 3.81 K/uL Total Absolute Lymphocytes 11.63 K/uL Eosinophils # (Manual) 0.51 K/uL Metamyelocytes # 0.34 K/uL Smudge Cells PRESENT Polychromasia 1+ Anisocytosis PRESENT Spherocytes 1+ Echinocytes 1+ Test 12/28/17 07:21 12/28/17 08:05 12/28/17 08:30 Bedside Glucose 27 mg/dl 90 mg/dl 85 mg/dl Assessment and Plan This is a 72 yo F with PMHx of CLL who presents for IVF hydration and uric acid level monitoring due to risk of tumor lysis syndrome after recent initiation of Venetoclax ( a BCL-2 inhibitor), with an allergy to allopurinol. She has been followed by Dr. Cornell as an outpatient, and he has recommended that she be admitted for close following. We will also consult nephrology, Dr Quinn for mildly elevated Creatinine at 1.2 and uric acid which is also slightly elevated at 9.2. LDH is also significantly elevated. Hx CLL hx spenic infarct/splenomegaly - Patient admitted to med/surg -Flow cytometric studies would demonstrate that this lymphoma unfortunately demonstrated a loss of 17 p as well as 11 q. all predictive of a fairly aggressive course -There is concern for risk of tumor lysis syndrome, which is reason why patient is here. -will cont. ns at 100 with a bolus of 500ml -Will need to continue to monitor her renal function -Added rasburicase as determined by neprho. -patient also started venetnoclax - Continue pain control with oxycodone as can tolerate oral meds, continue IV morphine sulfate in the interim, continue IV zofran for nausea, prednisone 40 mg daily - Regular diet - PT/OT - pt from home and lives alone - Wean O2 at tolerated, does not normally require supplemental o2. Metabolic acidosis Likely multifactorial from advanced cancer and chemo will place on bicarb drip obtain lactic acid will upgrade to ICU will increase fluid Acute kidney failure Improved from 1.4 to 1.2 Will given an additional fluid bolus CONSTIPATION Abd. is on the firm side. Will try lactulose today. Failed miralax. will also obtain KUB. ordered a repeat bmp in afternoon HYPOGLYCEMIA Patient is on prednisone 20mg at home This was increased to 40 mg po daily. Today BS was 27. Gave a dose of D50. Level was in 90s at repeat. but decreased to 80 shortly after. ordered a repeat d50. will check bmp in afternoon and accuchecks Metabolic Encephalopathy duc monitor. likely from medicine. GERD - Cont ppi DVT ppx: Teds, scds CODE STATUS: DNR
[2017-12-28] MEDS: LACTULOSE SYRUP 30 GM/45 ML UDP PO STA ×2 (10:33→12:14)
--- NOTE | 2017-12-28 10:36 | DIAGNOSTIC IMAGING REPORT ---
KUB CLINICAL HISTORY: Constipation. FINDINGS: An AP, portable, supine abdominal radiograph is correlated with abdominal CT dated 12/26/2017. There is a nonobstructed abdominal bowel gas pattern. There is marked hepatosplenomegaly. No evidence of intraperitoneal free air is seen on this supine examination. There are no abnormal abdominal calcifications. The skeletal structures are osteopenic. The bony structures appear intact. IMPRESSION: 1. Nonobstructed bowel gas pattern. 2. Marked hepatosplenomegaly. Electronically signed by: Winston Correa M.D. 12/28/2017 10:35 AM Dictated Date/Time: 12/28/2017 10:34 AM
[2017-12-28] MEDS ORDERED: SODIUM BICARBONATE 8.4% INJ 75 MEQ in SODIUM CHLORIDE 0.45% 1000ML 1,000 ML IV SCH (11:00)
[2017-12-28] MEDS ORDERED: NURSING VERBAL MED ORDER ONE ×3 (11:15→17:30)
--- NOTE | 2017-12-28 11:35 | Nephrology Progress Note ---
Nephrology Progress Note Date of Service Dec 28, 2017. Chief Complaint Anticipated TLS Subjective Ms. Max was seen & examined in her hospital room this morning. She received Rasburicase yesterday followed by Venetoclax. Serum uric acid was undetectable this morning. Serum potassium is within acceptable limits. Ms. Max is much weaker this morning with signs of delerium. Review of Systems Constitutional: No fever Cardiovascular: No chest pain Respiratory: No dyspnea at rest Abdomen: No pain, No nausea, No vomiting Extremities: No leg edema A complete review of systems was performed. Pertinent positives are noted above. All other systems are negative. Vital Signs Last 8 Hrs Date Time Temp Pulse Resp B/P (MAP) Pulse Ox O2 Delivery O2 Flow Rate FiO2 12/28/17 11:09 36.8 102 16 145/71 (95) 97 Nasal Cannula 2.0 12/28/17 10:45 Room Air 2.0 Nasal Cannula 12/28/17 07:35 36.5 90 18 144/78 (100) 98 12/28/17 04:00 36.9 92 20 139/68 (91) 95 2.0 Last Recorded Weight Weight (Kilograms): 62.300 Physical Exam Head: normocephalic, atraumatic Eyes: PERRL, EOMI Neck: no adenopathy Respiratory/Chest: lungs clear, no respiratory distress Cardiovascular: regular rate, rhythm Abdomen/GI: non tender, + splenomegaly Extremities/Musculoskelatal: no calf tenderness, no pedal edema Neurologic/Psych: alert (oriented to self only) Family History Hypertension Social History Smoking Status: Never smoker Drug Use: none Marital Status: single Occupation: retired Laboratory Results Past 24 Hours 12/28/17 05:30 Red Blood Count 4.11, Mean Corpuscular Volume 81.0, Mean Corpuscular Hemoglobin 25.5, Mean Corpuscular Hemoglobin Concent 31.5, Mean Platelet Volume 10.3 12/27/17 19:26 12/28/17 05:30 Test 12/27/17 11:26 12/27/17 19:26 12/27/17 21:31 12/28/17 05:30 Prothrombin Time 14.7 SECONDS (9.0-12.0) Prothromb Time International Ratio 1.4 (0.9-1.1) Activated Partial Thromboplast Time 33.7 SECONDS (21.0-31.0) Partial Thromboplastin Ratio 1.3 Fibrinogen 92 mg/dl (184-400) Anion Gap 16.0 mmol/L (3-11) 24.0 mmol/L (3-11) Est Creatinine Clear Calc Drug Dose 30.3 ml/min 35.8 ml/min Estimated GFR () 42.0 51.4 Estimated GFR (Non- 36.2 44.4 BUN/Creatinine Ratio 10.5 (10-20) 15.2 (10-20) Uric Acid 1.7 mg/dl (2.6-7.2) < 0.2 mg/dl (2.6-7.2) Calcium Level 8.5 mg/dl (8.5-10.1) 9.4 mg/dl (8.5-10.1) Chemistry Specimen Hemolysis Bedside Glucose 87 mg/dl (70-90) White Blood Count 19.06 K/uL (4.8-10.8) Red Blood Count 4.11 M/uL (4.2-5.4) Hemoglobin 10.5 g/dL (12.0-16.0) Hematocrit 33.3 % (37-47) Mean Corpuscular Volume 81.0 fL (80-100) Mean Corpuscular Hemoglobin 25.5 pg (25-34) Mean Corpuscular Hemoglobin Concent 31.5 g/dl (32-36) Platelet Count 46 K/uL (130-400) Mean Platelet Volume 10.3 fL (7.4-10.4) RDW Standard Deviation 51.5 fL (36.4-46.3) RDW Coefficient of Variation 17.6 % (11.5-14.5) Nucleated RBC Absolute Count (auto) 2.43 K/uL (0-0) Neutrophils % (Manual) 34.5 % Lymphocytes % (Manual) 41.0 % Variant Lymphocytes % (manual) 20.0 % Eosinophils % (Manual) 2.7 % Metamyelocytes % 1.8 % Nucleated Red Blood Cells % 12.7 % Neutrophils # (Manual) 6.58 K/uL (1.4-6.5) Total Absolute Neutrophils 6.58 K/uL (1.4-6.5) Lymphocytes # (Manual) 7.81 K/uL (1.2-3.4) Absolute Variant Lymphocytes 3.81 K/uL Total Absolute Lymphocytes 11.63 K/uL (1.2-3.4) Eosinophils # (Manual) 0.51 K/uL (0-0.5) Metamyelocytes # 0.34 K/uL (0-0) Smudge Cells PRESENT Polychromasia 1+ Anisocytosis PRESENT Spherocytes 1+ Echinocytes 1+ Test 12/28/17 07:21 12/28/17 08:05 12/28/17 08:30 12/28/17 11:02 Bedside Glucose 27 mg/dl (70-90) 90 mg/dl (70-90) 85 mg/dl (70-90) Arterial Blood pH 7.16 (7.35-7.45) Arterial Blood Partial Pressure CO2 23 mmHg (35-46) Arterial Blood Partial Pressure O2 96 mm/Hg (80-95) Arterial Blood HCO3 8 mmol/L (19-24) Arterial Blood Oxygen Saturation 95.5 % (90-95) Arterial Blood Base Excess -18.9 mEq/L (-9-1.8) Arterial Blood Gas Delivery 2 L Saurav Test POS (POS) Allergies Coded Allergies: Allopurinol (Verified Allergy, Unknown, rash, 12/07/17) Medications Current Inpatient Medications Medications (Trade) Dose Ordered Sig/Lex Route Start Time Stop Time Status Last Admin Dose Admin Acetaminophen (Tylenol Tab) 650 mg Q2D@0900 PO 12/26/17 13:00 01/25/18 12:59 Escitalopram Oxalate (Lexapro Tab) 5 mg DAILY PO 12/27/17 08:00 01/26/18 07:59 12/28/17 08:33 5 MG Ondansetron HCl (Zofran Tab) 4 mg Q6 PRN PO 12/26/17 13:00 01/25/18 12:59 Simvastatin (Zocor Tab) 40 mg QPM PO 12/26/17 21:00 01/25/18 20:59 Pantoprazole Sodium (Protonix Tab) 40 mg DAILY PO 12/27/17 08:00 01/26/18 07:59 12/28/17 08:34 40 MG Polyethylene (Miralax Powder Packet) 17 gm DAILY PO 12/27/17 08:00 01/26/18 07:59 Oxycodone HCl (Roxicodone Immediate Rel Tab) 5 mg Q4H PRN PO 12/26/17 13:00 01/09/18 12:59 Ondansetron HCl (Zofran Inj) 4 mg Q6H PRN IV 12/26/17 13:15 01/25/18 13:14 12/28/17 08:38 4 MG Morphine Sulfate (MoRPHine SULFATE INJ) 4 mg Q2H PRN IV 12/26/17 13:15 01/09/18 13:14 12/28/17 06:07 4 MG Acetaminophen (Tylenol Tab) 650 mg Q4H PRN PO 12/26/17 13:30 01/25/18 13:29 Polyethylene (Miralax Powder Packet) 17 gm DAILY PRN PO 12/26/17 13:30 01/25/18 13:29 12/27/17 17:50 17 GM Non-Formulary Medication (Non-Formulary Patient'S Own Med) 2 ea DAILY@1700 PO 12/27/17 17:00 01/02/18 17:01 12/27/17 17:50 2 EA Prednisone (PredniSONE TAB) 40 mg DAILY PO 12/29/17 08:00 01/26/18 07:59 Sodium Bicarbonate 150 meq/Dextrose 1,150 ml @ 125 mls/hr Q9H12M IV 12/28/17 11:00 01/27/18 10:59 Impression (1) CLL (chronic lymphocytic leukemia) (2) Dehydration Ms. Max is a 72-year-old female with aggressive CLL. She has significant adenopathy and splenomegaly. Disease has recently progressed following prior treatment with Ibruvica. She was admitted to start treatment with Venetoclax. She is at high risk for TLS. The patient has a history of hyperuricemia. She has an allergy (skin rash) to Allopurinol. Recommendations HYPERURICEMIA: -- Uric acid is undetectable following Rasburicase -- Recommend holding today's dose of Rasburicase and monitor serum uric acid levels ACUTE KIDNEY INJURY: -- Creatinine has improved following IV hydration. Baseline creatinine has been 0.9 -- Serum potassium is acceptable this am -- Monitor serial PRP, UO METABOLIC ACIDOSIS: -- Patient has a high anion gap metabolic acidosis. There is no respiratory component. -- Will order serum lactic acid level -- Will change IVF to include NaHCO3 MS CHANGES: -- Likely multifactorial including recurrent hypoglycemia and severe metabolic acidosis -- Will add dextrose to IVF and provide IV NaHCO3 as outlined above OTHER: -- Recommend transfer to ICU and discuss goals of therapy / prognosis with family
[2017-12-28] MEDS: SODIUM BICARBONATE 8.4% INJ 150 MEQ in DEXTROSE 5% 1000ML 1,000 ML IV SCH ×2 (11:49→20:00)
--- NOTE | 2017-12-28 12:26 | Hematology/Oncology Prog Note ---
Hematology/Onc Progress Note Date of Service Dec 28, 2017. Diagnoses Progressive CLL deletion 17p Hyperuricemia Medications Medications Administered Medications (Trade) Dose Ordered Sig/Lex Route Start Time Stop Time Status Last Admin Dose Admin Escitalopram Oxalate (Lexapro Tab) 5 mg DAILY PO 12/27/17 08:00 01/26/18 07:59 12/27/17 07:52 5 MG Prednisone (PredniSONE TAB) 40 mg DAILY PO 12/27/17 08:00 12/27/17 17:01 DC 12/27/17 07:53 20 MG Pantoprazole Sodium (Protonix Tab) 40 mg DAILY PO 12/27/17 08:00 01/26/18 07:59 12/27/17 07:53 40 MG Sodium Chloride 1,000 ml @ 200 mls/hr Q5H IV 12/26/17 13:00 12/28/17 10:51 DC 12/28/17 08:33 100 MLS/HR Ondansetron HCl (Zofran Inj) 4 mg Q6H PRN IV 12/26/17 13:15 01/25/18 13:14 12/28/17 08:38 4 MG Morphine Sulfate (MoRPHine SULFATE INJ) 4 mg Q2H PRN IV 12/26/17 13:15 01/09/18 13:14 12/28/17 06:07 4 MG Morphine Sulfate (MoRPHine SULFATE INJ) 4 mg STK-MED ONCE .ROUTE 12/26/17 13:15 12/26/17 13:16 DC 12/26/17 13:20 4 MG Ondansetron HCl (Zofran Inj) 4 mg STK-MED ONCE .ROUTE 12/26/17 13:16 12/26/17 13:17 DC 12/26/17 13:20 4 MG Polyethylene (Miralax Powder Packet) 17 gm DAILY PRN PO 12/26/17 13:30 01/25/18 13:29 12/27/17 17:50 17 GM Rasburicase 12 mg/ Sodium Chloride 50 ml @ 100 mls/hr DAILY@1300 IV 12/27/17 13:00 12/28/17 11:19 DC 12/27/17 13:37 100 MLS/HR Non-Formulary Medication (Non-Formulary Patient'S Own Med) 2 ea DAILY@1700 PO 12/27/17 17:00 01/02/18 17:01 12/27/17 17:50 2 EA Dextrose (Dextrose 50% 50ML Syringe) 50 ml STK-MED ONCE .ROUTE 12/28/17 07:23 12/28/17 07:24 DC 12/28/17 08:35 50 ML Sodium Chloride 500 ml @ 500 mls/hr Q1H ONCE IV 12/28/17 08:30 12/28/17 09:29 DC 12/28/17 08:33 500 MLS/HR Dextrose (Dextrose 50% 50ML Syringe) 50 ml STK-MED ONCE .ROUTE 12/28/17 08:37 12/28/17 08:38 DC 12/28/17 08:39 50 ML Sodium Bicarbonate 150 meq/Dextrose 1,150 ml @ 125 mls/hr Q9H12M IV 12/28/17 11:00 01/27/18 10:59 12/28/17 11:49 125 MLS/HR Subjective Confused and disoriented today. Tends to be mildly somnolent. Vital signs stable. PH is 7.16. Review of Systems: Unable to obtain an accurate review of systems today Vital Signs Vital Signs Past 12 Hours Date Time Temp Pulse Resp B/P (MAP) Pulse Ox O2 Delivery O2 Flow Rate FiO2 12/28/17 11:09 36.8 102 16 145/71 (95) 97 Nasal Cannula 2.0 12/28/17 10:45 Room Air 2.0 Nasal Cannula 12/28/17 07:35 36.5 90 18 144/78 (100) 98 12/28/17 04:00 36.9 92 20 139/68 (91) 95 2.0 Physical Exam Constitutional: vitals are stable. Confused Eyes: Eyes are WILLY EOMI without conjuctival erythema or icterus. ENT: External examination was negative for masses. Neck: Negative for masses or palpable thyromegaly Respiratory: Lung sounds were generally clear bilaterally Cardiovascular: Heart was RRR without significant murmur, gallops aoe rubs Gastrointestinal: Abdomen seems to be nontender. He remains full with hepatosplenomegaly Lymphatic system: there was no palpable peripheral lymphadenopathy Musculoskeletal System: The musculoskeletal system seemed concordant with age. Skin: The skin was negative for jaundice. Neurologic exam: The exam was negative for any focal findings. Deep tendon reflexes were equal and symmetrical. She is globally confused in an encephalopathic way Psychiatric exam: Was essentially negative with normal mood and effect. Breast exam: Not done Extremities: Negative for edema Laboratory Last 24 Hours Test 12/27/17 19:26 12/27/17 21:31 12/28/17 05:30 12/28/17 07:21 Sodium Level 130 mmol/L 130 mmol/L Potassium Level 4.7 mmol/L 4.5 mmol/L Chloride Level 95 mmol/L 95 mmol/L Carbon Dioxide Level 19 mmol/L 11 mmol/L Anion Gap 16.0 mmol/L 24.0 mmol/L Blood Urea Nitrogen 15 mg/dl 18 mg/dl Creatinine 1.43 mg/dl 1.21 mg/dl Est Creatinine Clear Calc Drug Dose 30.3 ml/min 35.8 ml/min Estimated GFR () 42.0 51.4 Estimated GFR (Non- 36.2 44.4 BUN/Creatinine Ratio 10.5 15.2 Random Glucose 97 mg/dl 27 mg/dl Uric Acid 1.7 mg/dl < 0.2 mg/dl Calcium Level 8.5 mg/dl 9.4 mg/dl Chemistry Specimen Hemolysis Bedside Glucose 87 mg/dl 27 mg/dl White Blood Count 19.06 K/uL Red Blood Count 4.11 M/uL Hemoglobin 10.5 g/dL Hematocrit 33.3 % Mean Corpuscular Volume 81.0 fL Mean Corpuscular Hemoglobin 25.5 pg Mean Corpuscular Hemoglobin Concent 31.5 g/dl Platelet Count 46 K/uL Mean Platelet Volume 10.3 fL RDW Standard Deviation 51.5 fL RDW Coefficient of Variation 17.6 % Nucleated RBC Absolute Count (auto) 2.43 K/uL Neutrophils % (Manual) 34.5 % Lymphocytes % (Manual) 41.0 % Variant Lymphocytes % (manual) 20.0 % Eosinophils % (Manual) 2.7 % Metamyelocytes % 1.8 % Nucleated Red Blood Cells % 12.7 % Neutrophils # (Manual) 6.58 K/uL Total Absolute Neutrophils 6.58 K/uL Lymphocytes # (Manual) 7.81 K/uL Absolute Variant Lymphocytes 3.81 K/uL Total Absolute Lymphocytes 11.63 K/uL Eosinophils # (Manual) 0.51 K/uL Metamyelocytes # 0.34 K/uL Smudge Cells PRESENT Polychromasia 1+ Anisocytosis PRESENT Spherocytes 1+ Echinocytes 1+ Test 12/28/17 08:05 12/28/17 08:30 12/28/17 11:02 12/28/17 11:44 Bedside Glucose 90 mg/dl 85 mg/dl 77 mg/dl Arterial Blood pH 7.16 Arterial Blood Partial Pressure CO2 23 mmHg Arterial Blood Partial Pressure O2 96 mm/Hg Arterial Blood HCO3 8 mmol/L Arterial Blood Oxygen Saturation 95.5 % Arterial Blood Base Excess -18.9 mEq/L Arterial Blood Gas Delivery 2 L Saurav Test POS Test 12/28/17 11:45 Assessment & Plan Markedly progressive lymphoma. She began oral Vanetoclax yesterday and will see if she will be able to swallow medicine today. Uric acid levels quite good. She now I believe is experiencing a metabolic encephalopathy. I suspect the acidosis and hypoglycemia are all part of a tumor that is rapidly turning over. The prognosis is extremely poor. I did review the circumstances with her brothers Dori over the phone today. I also left a voicemail for her son to call. I reviewed with Dr. Mcgovern as well as the nursing staff. I believe we should transfer to ICU for support at this time. I also unfortunately feel that unless she can establish some stability in the next 24-48 hours that we will not be able to salvage the overall situation. I did express this to Dori over the phone today. Prior to begin her therapy the patient had reviewed with us a wish for a DNR status and this too was confirmed during the phone conversations today with her relative ( Dori had previously talked to her Ananth who was present during my previous conversation with the patient).
[2017-12-28] MEDS: HEPARIN SOD 5000 UNIT/0.5 ML CARP SQ SCH ×2 (16:34→21:40)
[2017-12-28] MEDS: VENETOCLAX 10 MG PO SCH (17:00)
[2017-12-28 17:08] LABS: CALCIUM 8.9 mg/dl (8.5-10.1); CREATININE 1.43 mg/dl (0.60-1.20); POTASSIUM 4.7 mmol/L (3.5-5.1)
[2017-12-28] MEDS ORDERED: SODIUM BICARB 8.4% INJ 50 MEQ/50 ML SYR IV ONE (17:19)
--- NOTE | 2017-12-28 18:33 | Nephrology Progress Note ---
Nephrology Progress Note Date of Service Dec 28, 2017. Chief Complaint Anticipated TLS Review of Systems A complete review of systems was performed. Pertinent positives are noted above. All other systems are negative. Vital Signs Last 8 Hrs Date Time Temp Pulse Resp B/P (MAP) Pulse Ox O2 Delivery O2 Flow Rate FiO2 12/28/17 16:40 93 Room Air 12/28/17 16:31 36.4 96 14 122/63 (82) 95 Room Air 12/28/17 16:30 97 14 95 12/28/17 16:01 97 15 128/59 (82) 96 12/28/17 16:00 101 14 95 12/28/17 15:31 100 14 117/68 (84) 97 Room Air 12/28/17 15:30 101 14 98 12/28/17 15:01 103 16 136/55 (82) 98 12/28/17 15:00 104 15 98 12/28/17 14:31 103 19 146/67 (93) 98 Room Air 12/28/17 14:30 104 22 97 12/28/17 14:01 108 23 151/79 (103) 97 Room Air 12/28/17 14:00 104 17 97 12/28/17 13:15 104 25 99 12/28/17 13:01 108 25 160/83 (108) 97 12/28/17 13:00 106 21 97 12/28/17 12:45 101 17 99 Nasal Cannula 2.0 12/28/17 12:31 36.4 146/98 (114) 12/28/17 12:10 99 Nasal Cannula 2.0 12/28/17 11:09 36.8 102 16 145/71 (95) 97 Nasal Cannula 2.0 12/28/17 10:45 Room Air 2.0 Nasal Cannula I & O 24-Hour Column 12/29/17 08:00 Intake Total 1371 ml Output Total 125 ml Balance 1246 ml Last Recorded Weight Weight (Kilograms): 62.300 Family History Hypertension Social History Smoking Status: Never smoker Drug Use: none Marital Status: single Occupation: retired Laboratory Results Past 24 Hours 12/28/17 05:30 Red Blood Count 4.11, Mean Corpuscular Volume 81.0, Mean Corpuscular Hemoglobin 25.5, Mean Corpuscular Hemoglobin Concent 31.5, Mean Platelet Volume 10.3 12/27/17 19:26 12/28/17 05:30 12/28/17 16:24 Test 12/27/17 19:26 12/27/17 21:31 12/28/17 05:30 12/28/17 07:21 Anion Gap 16.0 mmol/L (3-11) 24.0 mmol/L (3-11) Est Creatinine Clear Calc Drug Dose 30.3 ml/min 35.8 ml/min Estimated GFR () 42.0 51.4 Estimated GFR (Non- 36.2 44.4 BUN/Creatinine Ratio 10.5 (10-20) 15.2 (10-20) Uric Acid 1.7 mg/dl (2.6-7.2) < 0.2 mg/dl (2.6-7.2) Calcium Level 8.5 mg/dl (8.5-10.1) 9.4 mg/dl (8.5-10.1) Chemistry Specimen Hemolysis Bedside Glucose 87 mg/dl (70-90) 27 mg/dl (70-90) White Blood Count 19.06 K/uL (4.8-10.8) Red Blood Count 4.11 M/uL (4.2-5.4) Hemoglobin 10.5 g/dL (12.0-16.0) Hematocrit 33.3 % (37-47) Mean Corpuscular Volume 81.0 fL (80-100) Mean Corpuscular Hemoglobin 25.5 pg (25-34) Mean Corpuscular Hemoglobin Concent 31.5 g/dl (32-36) Platelet Count 46 K/uL (130-400) Mean Platelet Volume 10.3 fL (7.4-10.4) RDW Standard Deviation 51.5 fL (36.4-46.3) RDW Coefficient of Variation 17.6 % (11.5-14.5) Nucleated RBC Absolute Count (auto) 2.43 K/uL (0-0) Neutrophils % (Manual) 34.5 % Lymphocytes % (Manual) 41.0 % Variant Lymphocytes % (manual) 20.0 % Eosinophils % (Manual) 2.7 % Metamyelocytes % 1.8 % Nucleated Red Blood Cells % 12.7 % Neutrophils # (Manual) 6.58 K/uL (1.4-6.5) Total Absolute Neutrophils 6.58 K/uL (1.4-6.5) Lymphocytes # (Manual) 7.81 K/uL (1.2-3.4) Absolute Variant Lymphocytes 3.81 K/uL Total Absolute Lymphocytes 11.63 K/uL (1.2-3.4) Eosinophils # (Manual) 0.51 K/uL (0-0.5) Metamyelocytes # 0.34 K/uL (0-0) Smudge Cells PRESENT Polychromasia 1+ Anisocytosis PRESENT Spherocytes 1+ Echinocytes 1+ Test 12/28/17 08:05 12/28/17 08:30 12/28/17 11:02 12/28/17 11:44 Bedside Glucose 90 mg/dl (70-90) 85 mg/dl (70-90) 77 mg/dl (70-90) Arterial Blood pH 7.16 (7.35-7.45) Arterial Blood Partial Pressure CO2 23 mmHg (35-46) Arterial Blood Partial Pressure O2 96 mm/Hg (80-95) Arterial Blood HCO3 8 mmol/L (19-24) Arterial Blood Oxygen Saturation 95.5 % (90-95) Arterial Blood Base Excess -18.9 mEq/L (-9-1.8) Arterial Blood Gas Delivery 2 L Saurav Test POS (POS) Test 12/28/17 11:45 12/28/17 16:23 12/28/17 16:24 12/28/17 17:06 Lactic Acid Level 18.7 mmol/L (0.4-2.0) Bedside Glucose 63 mg/dl (70-90) 100 mg/dl (70-90) Venous Blood pH 6.98 (7.36-7.41) Venous Blood Partial Pressure CO2 32 mmHg (38.0-50.0) Venous Blood Partial Pressure O2 58 mmHg Venous Blood HCO3 7 mmol/L Venous Blood Oxygen Saturation 81.5 % Venous Blood Base Excess -23.2 mEq/L Anion Gap 31.0 mmol/L (3-11) Est Creatinine Clear Calc Drug Dose 30.3 ml/min Estimated GFR () 42.0 Estimated GFR (Non- 36.2 BUN/Creatinine Ratio 15.0 (10-20) Calcium Level 8.9 mg/dl (8.5-10.1) Chemistry Specimen Hemolysis Date/Time Source Procedure Growth Status 12/28/17 00:00 Nasal MRSA DNA Surveillance Screen - Final Specimen Negative for MRSA by DNA Probe Complete Allergies Coded Allergies: Allopurinol (Verified Allergy, Unknown, rash, 12/07/17) Medications Current Inpatient Medications Medications (Trade) Dose Ordered Sig/Lex Route Start Time Stop Time Status Last Admin Dose Admin Acetaminophen (Tylenol Tab) 650 mg Q2D@0900 PO 12/26/17 13:00 01/25/18 12:59 Escitalopram Oxalate (Lexapro Tab) 5 mg DAILY PO 12/27/17 08:00 01/26/18 07:59 12/27/17 07:52 5 MG Ondansetron HCl (Zofran Tab) 4 mg Q6 PRN PO 12/26/17 13:00 01/25/18 12:59 Simvastatin (Zocor Tab) 40 mg QPM PO 12/26/17 21:00 01/25/18 20:59 Pantoprazole Sodium (Protonix Tab) 40 mg DAILY PO 12/27/17 08:00 01/26/18 07:59 12/27/17 07:53 40 MG Polyethylene (Miralax Powder Packet) 17 gm DAILY PO 12/27/17 08:00 01/26/18 07:59 Oxycodone HCl (Roxicodone Immediate Rel Tab) 5 mg Q4H PRN PO 12/26/17 13:00 01/09/18 12:59 Ondansetron HCl (Zofran Inj) 4 mg Q6H PRN IV 12/26/17 13:15 01/25/18 13:14 12/28/17 14:09 4 MG Acetaminophen (Tylenol Tab) 650 mg Q4H PRN PO 12/26/17 13:30 01/25/18 13:29 Polyethylene (Miralax Powder Packet) 17 gm DAILY PRN PO 12/26/17 13:30 01/25/18 13:29 12/27/17 17:50 17 GM Non-Formulary Medication (Non-Formulary Patient'S Own Med) 2 ea DAILY@1700 PO 12/27/17 17:00 01/02/18 17:01 12/27/17 17:50 2 EA Prednisone (PredniSONE TAB) 40 mg DAILY PO 12/29/17 08:00 01/26/18 07:59 Sodium Bicarbonate 150 meq/Dextrose 1,150 ml @ 125 mls/hr Q9H12M IV 12/28/17 11:00 01/27/18 10:59 12/28/17 11:49 125 MLS/HR Heparin Sodium (Porcine) (Heparin Sq 5000 Unit/0.5ml) 5,000 unit Q8 SQ 12/28/17 14:00 01/27/18 13:59 12/28/17 16:34 5,000 UNIT Morphine Sulfate (MoRPHine SULFATE INJ) 4 mg Q1H PRN IV 12/28/17 15:00 01/09/18 13:14 Impression (1) CLL (chronic lymphocytic leukemia) (2) Dehydration Ms. aMx is a 72-year-old female with aggressive CLL. She has significant adenopathy and splenomegaly. Disease has recently progressed following prior treatment with Ibruvica. She was admitted to start treatment with Venetoclax. She is at high risk for TLS. The patient has a history of hyperuricemia. She has an allergy (skin rash) to Allopurinol. Recommendations Labs reviewed this evening. Serum bicarbonate has dropped to 9.0 mmol/L and serum pH is < 7.0 despite IV NaHCO3 supplementation. I have spoken with the ICU team by phone. They have provided IVF and increased NaHCO3 supplement. They have met w/ Oncology and spoken with the family about patient's poor prognosis. She is now DNR / DNI. Critical care team is shifting their focus to comfort care. They plan to meet again with the family this evening to discuss the plan of care further. Will not escalate care to HD at this time. Given large tumor burden it likely will not change overall prognosis. Please call if further Nephrology assistance is needed.
--- NOTE | 2017-12-28 20:14 | Critical Care Consultation ---
Critical Care Consultation Date of Consultation: Dec 28, 2017. Attending Physician: Guy Treviño MD Reason for Consultation: Metabolic encephalopathy History of Present Illness 72-year-old female with history of an aggressive CLL was admitted to the hospital for treatment with Venetoclax. Followed by Dr. Cornell as an outpatient. During her hospitalization she has progressively deteriorated with increased fatigue and worsening acidosis. Concern for metabolic encephalopathy. Initially she was transferred to the ICU to determine if further acute stabilizing treatment was possible. After discussion with family , patient was made comfort care. Past Medical/Surgical History PMH/PSH: Chronic lymphocytic leukemia, depressive disorder, hernia repair. Family History Hypertension Social History Smoking Status: Never Smoker Drug Use: none Marital Status: single Housing Status: lives alone Occupation Status: retired Allergies Coded Allergies: Allopurinol (Verified Allergy, Unknown, rash, 12/07/17) Home Medications Scheduled Acetaminophen (Tylenol), 650 MG PO Q2D Cholecalciferol (Vitamin D 1000 Unit), 2,000 INTER.UNIT PO DAILY Escitalopram Oxalate (Lexapro), 5 MG PO DAILY Pantoprazole (Protonix), 40 MG PO DAILY Polyethylene Glycol 3350 (Miralax), 17 GM PO DAILY Prednisone (Prednisone), 1 TAB PO DAILY Simvastatin (Zocor), 40 MG PO QPM Scheduled PRN Naproxen (Naprosyn), 500 MG PO BID PRN for Pain Ondansetron Hcl (Zofran), 4 MG PO Q6 PRN for Nausea Oxycodone HCl (Oxycodone HCl), 1-2 TAB PO Q6H PRN for Pain Current Inpatient Medications Current Inpatient Medications Medications (Trade) Dose Ordered Sig/Lex Route Start Time Stop Time Status Last Admin Dose Admin Acetaminophen (Tylenol Tab) 650 mg Q2D@0900 PO 12/26/17 13:00 01/25/18 12:59 Escitalopram Oxalate (Lexapro Tab) 5 mg DAILY PO 12/27/17 08:00 01/26/18 07:59 12/27/17 07:52 5 MG Ondansetron HCl (Zofran Tab) 4 mg Q6 PRN PO 12/26/17 13:00 01/25/18 12:59 Simvastatin (Zocor Tab) 40 mg QPM PO 12/26/17 21:00 01/25/18 20:59 Pantoprazole Sodium (Protonix Tab) 40 mg DAILY PO 12/27/17 08:00 01/26/18 07:59 12/27/17 07:53 40 MG Polyethylene (Miralax Powder Packet) 17 gm DAILY PO 12/27/17 08:00 01/26/18 07:59 Oxycodone HCl (Roxicodone Immediate Rel Tab) 5 mg Q4H PRN PO 12/26/17 13:00 01/09/18 12:59 Ondansetron HCl (Zofran Inj) 4 mg Q6H PRN IV 12/26/17 13:15 01/25/18 13:14 12/28/17 14:09 4 MG Acetaminophen (Tylenol Tab) 650 mg Q4H PRN PO 12/26/17 13:30 01/25/18 13:29 Polyethylene (Miralax Powder Packet) 17 gm DAILY PRN PO 12/26/17 13:30 01/25/18 13:29 12/27/17 17:50 17 GM Non-Formulary Medication (Non-Formulary Patient'S Own Med) 2 ea DAILY@1700 PO 12/27/17 17:00 01/02/18 17:01 12/27/17 17:50 2 EA Prednisone (PredniSONE TAB) 40 mg DAILY PO 12/29/17 08:00 01/26/18 07:59 Sodium Bicarbonate 150 meq/Dextrose 1,150 ml @ 125 mls/hr Q9H12M IV 12/28/17 11:00 01/27/18 10:59 12/28/17 20:00 125 MLS/HR Heparin Sodium (Porcine) (Heparin Sq 5000 Unit/0.5ml) 5,000 unit Q8 SQ 12/28/17 14:00 01/27/18 13:59 12/28/17 16:34 5,000 UNIT Morphine Sulfate (MoRPHine SULFATE INJ) 4 mg Q1H PRN IV 12/28/17 15:00 01/09/18 13:14 12/28/17 20:00 4 MG Review of Systems Unable to obtain due to acute metabolic encephalopathy. Physical Exam Date Time Temp Pulse Resp B/P (MAP) Pulse Ox O2 Delivery O2 Flow Rate FiO2 12/28/17 18:01 98 24 118/52 (74) 95 Room Air 12/28/17 18:00 98 28 96 12/28/17 17:31 105 22 120/62 (81) 97 12/28/17 17:30 104 23 96 12/28/17 17:01 92 16 122/60 (80) 95 12/28/17 17:00 95 15 95 12/28/17 16:40 93 Room Air 12/28/17 16:31 36.4 96 14 122/63 (82) 95 Room Air 12/28/17 16:30 97 14 95 12/28/17 16:01 97 15 128/59 (82) 96 12/28/17 16:00 101 14 95 12/28/17 15:31 100 14 117/68 (84) 97 Room Air 12/28/17 15:30 101 14 98 12/28/17 15:01 103 16 136/55 (82) 98 12/28/17 15:00 104 15 98 12/28/17 14:31 103 19 146/67 (93) 98 Room Air 12/28/17 14:30 104 22 97 12/28/17 14:01 108 23 151/79 (103) 97 Room Air 12/28/17 14:00 104 17 97 12/28/17 13:15 104 25 99 12/28/17 13:01 108 25 160/83 (108) 97 12/28/17 13:00 106 21 97 12/28/17 12:45 101 17 99 Nasal Cannula 2.0 12/28/17 12:31 36.4 146/98 (114) 12/28/17 12:10 99 Nasal Cannula 2.0 12/28/17 11:09 36.8 102 16 145/71 (95) 97 Nasal Cannula 2.0 12/28/17 10:45 Room Air 2.0 Nasal Cannula 12/28/17 07:35 36.5 90 18 144/78 (100) 98 12/28/17 04:00 36.9 92 20 139/68 (91) 95 2.0 12/28/17 00:00 Nasal Cannula 2.0 12/27/17 23:18 36.3 93 18 148/75 (99) 93 2.0 General Appearance: Presently unconscious. Does not appear in acute distress. CV: +S1S2 RRR, no murmur Pulm: Clear to auscultation throughout. Beginning deep agonal breathing. Abdomen: Distended and firm, with hepatosplenomegaly. Extremities: No pedal edema. Neuro: Presently unconscious. Laboratory Results Last 24 Hours Test 12/27/17 21:31 12/28/17 05:30 12/28/17 07:21 12/28/17 08:05 Bedside Glucose 87 mg/dl 27 mg/dl 90 mg/dl White Blood Count 19.06 K/uL Red Blood Count 4.11 M/uL Hemoglobin 10.5 g/dL Hematocrit 33.3 % Mean Corpuscular Volume 81.0 fL Mean Corpuscular Hemoglobin 25.5 pg Mean Corpuscular Hemoglobin Concent 31.5 g/dl Platelet Count 46 K/uL Mean Platelet Volume 10.3 fL RDW Standard Deviation 51.5 fL RDW Coefficient of Variation 17.6 % Nucleated RBC Absolute Count (auto) 2.43 K/uL Neutrophils % (Manual) 34.5 % Lymphocytes % (Manual) 41.0 % Variant Lymphocytes % (manual) 20.0 % Eosinophils % (Manual) 2.7 % Metamyelocytes % 1.8 % Nucleated Red Blood Cells % 12.7 % Neutrophils # (Manual) 6.58 K/uL Total Absolute Neutrophils 6.58 K/uL Lymphocytes # (Manual) 7.81 K/uL Absolute Variant Lymphocytes 3.81 K/uL Total Absolute Lymphocytes 11.63 K/uL Eosinophils # (Manual) 0.51 K/uL Metamyelocytes # 0.34 K/uL Smudge Cells PRESENT Polychromasia 1+ Anisocytosis PRESENT Spherocytes 1+ Echinocytes 1+ Sodium Level 130 mmol/L Potassium Level 4.5 mmol/L Chloride Level 95 mmol/L Carbon Dioxide Level 11 mmol/L Anion Gap 24.0 mmol/L Blood Urea Nitrogen 18 mg/dl Creatinine 1.21 mg/dl Est Creatinine Clear Calc Drug Dose 35.8 ml/min Estimated GFR () 51.4 Estimated GFR (Non- 44.4 BUN/Creatinine Ratio 15.2 Random Glucose 27 mg/dl Uric Acid < 0.2 mg/dl Calcium Level 9.4 mg/dl Test 12/28/17 08:30 12/28/17 11:02 12/28/17 11:44 12/28/17 11:45 Bedside Glucose 85 mg/dl 77 mg/dl Arterial Blood pH 7.16 Arterial Blood Partial Pressure CO2 23 mmHg Arterial Blood Partial Pressure O2 96 mm/Hg Arterial Blood HCO3 8 mmol/L Arterial Blood Oxygen Saturation 95.5 % Arterial Blood Base Excess -18.9 mEq/L Arterial Blood Gas Delivery 2 L Saurav Test POS Lactic Acid Level 18.7 mmol/L Test 12/28/17 16:23 12/28/17 16:24 12/28/17 17:06 Bedside Glucose 63 mg/dl 100 mg/dl Venous Blood pH 6.98 Venous Blood Partial Pressure CO2 32 mmHg Venous Blood Partial Pressure O2 58 mmHg Venous Blood HCO3 7 mmol/L Venous Blood Oxygen Saturation 81.5 % Venous Blood Base Excess -23.2 mEq/L Sodium Level 133 mmol/L Potassium Level 4.7 mmol/L Chloride Level 94 mmol/L Carbon Dioxide Level 7 mmol/L Anion Gap 31.0 mmol/L Blood Urea Nitrogen 21 mg/dl Creatinine 1.43 mg/dl Est Creatinine Clear Calc Drug Dose 30.3 ml/min Estimated GFR () 42.0 Estimated GFR (Non- 36.2 BUN/Creatinine Ratio 15.0 Random Glucose 62 mg/dl Calcium Level 8.9 mg/dl Chemistry Specimen Hemolysis Assessment & Plan 72-year-old female with a history of CLL, treated with Venetoclax (a BCL2 inhibitor), admitted on [id number] due to risk of tumor lysis syndrome. PMH/PSH: Chronic lymphocytic leukemia, depressive disorder, hernia repair. 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 Ongoing metabolic encephalopathy. Pulm: No known acute issues. Will maintain patient's comfort with morphine IV as needed. CVS: No known acute issues. ID: No known acute infectious issue. Endo: Had been monitoring blood sugars, with noted hypoglycemia, initially replaced. Renal/Lytes: Noted high anion gap metabolic acidosis. Most recent VBG 6.98 / 32 / 7. On D5 NS with bicarb at 125 ml/hr. - Hyperuricemia, since resolved. Recent acute kidney injury. See related nephrology notes. GI: CT abdomen pelvis suggestive of splenic masses and/or small splenic infarcts. Heme: Undergoing treatment for CLL. Evidence of tumor lysis syndrome. Concern for rapid tumor turnover and large tumor burden. See related hemeonc notes. DVT prophy: SCDs. Lines: PIV. Code status: DNR/DNI. PT/OT: N/A. Disposition: ICU. Multiple family members at bedside. They state they have been updated throughout the day by the primary team and Dr. Venegas. They are aware of the patient's imminently poor prognosis. Comfort care ongoing. Resident Physician Supervision Note: Dr. Ham was resident physician during care of patient. I separately evaluated patient and did history and exam. I discussed the case with the resident and generally agree with the findings and plan. I discussed the case with oncology and nephrology. Patient critically ill due to profound metabolic acidosis secondary to tumor burden. Tumor burden so profound that is inducing hypoglycemia and requiring aggressive bicarb supplementation, the patient is compensating to the best of her ability from a respiratory status standpoint however I believe that the patient will continue to decompensate and at this time she is DNR/DNI not wanting heroic measures undertaken. This is been discussed extensively with the patient and the patient 's son with Dr. Cornell. Patient is additionally having significant complaints of pain and we are judiciously treating her pain with morphine. She is not producing significant amounts of urine. I agree with nephrology that given the significant tumor burden renal replacement therapy will not likely change the overall prognosis of this end-stage terminal condition. I have personally spent 45 minutes of critical care time in the direct management of this patient. This is a life/limb threatening event. This includes time spent evaluating patient, direct bedside care, chart review, placing orders, interpretation of diagnostic studies, discussion with consultants, patient, and/or family members regarding treatment decisions, as well as other required patient management activities. This time is exclusive of all separately billable procedures, and teaching time and separate from and in addition to any other critical care service time. Documented By: Tomy Venegas DO Resident Tracking Resident Involvement: Resident Care Provided Care Provided: Adult Hospital Medicine Resident Tracking Resident Involvement: Resident Care Provided Care Provided: Adult Hospital Medicine (ICU)
[2017-12-28] MEDS: SIMVASTATIN 40 MG TAB PO SCH (21:00)
--- NOTE | 2017-12-29 07:58 | Death Pronouncement Note ---
Pronouncement Note Date & Time of Dec 29, 2017. 2357 Pronouncement At time of pronouncement the patients pupils were fixed and dilated, there was no spontaneous respiratory effort, no palpable pulse, no audible heart tones, and no response to pain or voice. Resident Tracking Resident Involvement: Resident Care Provided Care Provided: Adult Hospital Medicine (ICU)
--- NOTE | 2017-12-30 11:35 | Death Summary ---
Summary of Admission Date Dec 26, 2017 at 12:00 Date & Time of Dec 28, 2017. 2357 Cause of Metabolic acidosis secondary to advanced CLL. Hospital Course 72 yo female who was admitted for treatment for CLL. She was at increased risk of tumor lysis syndrome from new treatment for CLL. Patient on On final day of hospitalization, patient developed metabolic acidosis and hypoglycemia Was upgraded to ICU. Hem/Onc and critical care team deem this is likely from her advanced cancer. Patient was treated with bicarb drip however, her PH did not recover and was below 7. Family was updated. Patient with family at bedside.
== END 2017-12-28 23:57 | disposition expired | DRG 846 ==
LOC: C.4E 12:00 → ENRESERV 12-28 11:19 → C.MSICU 12-28 12:11 → UNDODISIN 12-29 01:24
PROVIDERS: ADMIT Internal Medicine; ATTEND Internal Medicine
DX: Z51.11 Encounter for antineoplastic chemotherapy (principal); G92 Toxic encephalopathy; E88.3 Tumor lysis syndrome; C91.10 Chronic lymphocytic leukemia of B-cell type not having achieved remission; C85.90 Non-Hodgkin lymphoma, unspecified, unspecified site; E87.1 Hypo-osmolality and hyponatremia; N17.9 Acute kidney failure, unspecified; E87.2 Acidosis; Q93.5 Other deletions of part of a chromosome; T45.1X5A Adverse effect of antineoplastic and immunosuppressive drugs, initial encounter; Y92.230 Patient room in hospital as the place of occurrence of the external cause; E16.2 Hypoglycemia, unspecified; G89.3 Neoplasm related pain (acute) (chronic); E86.0 Dehydration; R11.0 Nausea; K59.00 Constipation, unspecified; E78.5 Hyperlipidemia, unspecified; K21.9 Gastro-esophageal reflux disease without esophagitis; F32.9 Major depressive disorder, single episode, unspecified; Z66 Do not resuscitate; Z51.5 Encounter for palliative care; Z79.52 Long term (current) use of systemic steroids; Z79.899 Other long term (current) drug therapy; Z88.8 Allergy status to other drugs, medicaments and biological substances